=== PATIENT | male | born 1955 | race Hispanic/Latino ===

== ENCOUNTER 2017-08-10 20:32 | Emergency (ER) | payer SELFPAY ==
[2017-08-10 21:21] LABS: Absolute Lymphocytes (CBC) 2.3 K/uL (0.7-4.9); Absolute Monocytes 1.1 K/uL (0.1-1.3); Basophils % 0.9 % (0-1.3); Eosinophils % 11.9 % (0-4.4); Hematocrit 48.7 % (39.6-49.0); Lymphocytes % 17.7 % (15.3-44.8); MCH 33.1 pg (27.0-35.0); MCV 95.2 fL (80-100); MPV 7.8 fL (7.6-11.3); Monocytes % 8.2 % (3.3-12.3); RBC Red Blood Cell Count 5.12 M/uL (4.33-5.43)
--- NOTE | 2017-08-10 21:28 | RAD REPORT ---
EXAM DESCRIPTION: RAD - Chest Single View - 08/10/2017 9:22 pm CLINICAL HISTORY: CHEST PAIN Chest pain. COMPARISON: No comparisons FINDINGS: Portable technique limits examination quality. A large round cavitary lesion is identified in the left lower lung with a small to moderate left pleu ral effusion suspected. The right lung appears grossly clear. The heart is normal in size. No displac ed fractures. IMPRESSION: Large left lower lung cavitary lung lesion with left pleural effusion may represent a ca vitary pneumonia or cavitary neoplasm.
[2017-08-10 21:31] LABS: Protime INR 0.99
[2017-08-10 21:40] LABS: Albumin 3.2 g/dL (3.4-5.0); Bilirubin Direct 0.2 mg/dL (0-0.2); Bilirubin Total 0.7 mg/dL (0.2-1.0); Magnesium 2.2 mg/dL (1.8-2.4); Potassium 3.8 mmol/L (3.5-5.1); Protein, Total 7.3 g/dL (6.4-8.2)
--- NOTE | 2017-08-10 21:55 | RAD REPORT ---
EXAM DESCRIPTION: CT - Head Brain Wo Cont - 08/10/2017 9:42 pm CLINICAL HISTORY: Weakness;Seizure COMPARISON: Chest Single View dated 08/10/2017 TECHNIQUE: All CT scans are performed using dose optimization technique as appropriate and may inclu de automated exposure control or mA/KV adjustment according to patient size. FINDINGS: No intracranial hemorrhage, hydrocephalus or extra-axial fluid collection.The large area o f white matter edema is seen in the left frontal lobe. A vague intra-axial mass suspected in the left frontal lobe measuring 3.0 x 2.2 cm. 8 millimeters of [id number] subfalcine herniation is seen. A dditional vague area of white matter edema is seen in the right superior frontal lobe. The paranasal sinuses and mastoids are clear. The calvarium is intact. IMPRESSION: A large area of white matter edema is present in the left frontal lobe surrounding a jag pected intra-axial mass measuring 3.0 x 2.2 cm, with 8 mm subfalcine herniation towards the right see n. Additional vague area of white matter edema is seen in the right frontal lobe. Given the recent p chantal radiograph findings in the chest, metastatic disease to the brain is a possibility. MR imaging o f the brain with contrast would be advised for further evaluation. Findings were discussed with Dr. Grey in the emergency room 9:50 p.m. 08/10/2017 by telephone.
--- NOTE | 2017-08-10 23:00 | ER ---
Nurse's Notes [facility] Name: Bharat Chavez Age: 61 yrs Sex: Male : 1955 Arrival Date: 08/10/2017 Time: 20:38 Bed 6 Private MD: Diagnosis: Intracerebral Mass;Pulmonary Cavitary mass Presentation: 08/10 20:32 Presenting complaint: EMS states: Family reported pt had 2 episodes of him shaking ea uncontrollably, with eyes rolling to the side. EMS states family was concerned it was a seizure. Family reported he is non compliant with medication. Transition of care: patient was not received from another setting of care. Onset of symptoms was August 10, 2017. Risk Assessment: Do you want to hurt yourself or someone else? Patient reports no desire to harm self or others. Initial Sepsis Screen: Does the patient meet any 2 criteria? No. Patient's initial sepsis screen is negative. Does the patient have a suspected source of infection? No. Patient's initial sepsis screen is negative. Care prior to arrival: BS 147, BP: 166/122. 20:32 Method Of Arrival: EMS: [facility] ea 20:32 Acuity: ELIZABET 3 ea Triage Assessment: 20:32 General: Appears in no apparent distress. Behavior is calm, cooperative, appropriate ea for age, Pt reports he started shaking on his right side and remembers it starts with pain to the top of his head. . Pain: Denies pain. Neuro: Level of Consciousness is awake, alert, obeys commands, Oriented to person, place, time, situation, Speech is normal, Facial symmetry appears normal, Pupils are PERRLA, Intact. Neuro: Gait is steady. Cardiovascular: Heart tones S1 S2 present Patient's skin is warm and dry. Respiratory: Airway is patent Respiratory effort is even, unlabored, Respiratory pattern is regular, symmetrical, Breath sounds are clear bilaterally. GI: Abdomen is non-distended, Bowel sounds present X 4 quads. Abd is soft and non tender X 4 quads. : No signs and/or symptoms were reported regarding the genitourinary system. Derm: No signs and/or symptoms reported regarding the dermatologic system. Skin is dry, Skin is normal, Skin temperature is warm. Musculoskeletal: Circulation, motion, and sensation intact. Historical: - Allergies: 20:45 No Known Allergies; ea - Home Meds: 20:45 reports he has them but does not take them [Active]; ea - PMHx: 20:45 Hypertension; ea - PSHx: 20:45 Right hand surgery; ea - Immunization history:: Adult Immunizations up to date. - Social history:: Smoking status: . - Ebola Screening: : No symptoms or risks identified at this time. Screenin:52 Abuse screen: Denies threats or abuse. Nutritional screening: No deficits noted. ea Tuberculosis screening: No symptoms or risk factors identified. Fall Risk None identified. Assessment: 23:03 Reassessment: Patient and/or family updated on plan of care and expected duration. Pain ea level reassessed. Patient is alert, oriented x 3, equal unlabored respirations, skin warm/dry/pink. Family remains on bedside. 08/11 00:11 Reassessment: Report called to [facility] at [facility] Neurology unit. ea 00:55 Reassessment: Patient and/or family updated on plan of care and expected duration. Pain ea level reassessed. Patient is alert, oriented x 3, equal unlabored respirations, skin warm/dry/pink. [facility] at facility for transfer. Vital Signs: 08/10 20:32 BP 132 / 110; Pulse 83; Resp 18 S; Temp 98(O); Pulse Ox 98% on R/A; Weight 68.04 kg; ea Height 5 ft. 1 in. (154.94 cm); Pain 0/10; 21:15 BP 154 / 97; Pulse 95; Resp 20; Pulse Ox 97% ; rv 23:14 BP 154 / 97; Pulse 87; Resp 18; Pulse Ox 96% ; Pain 0/10; ea 20:32 Body Mass Index 28.34 (68.04 kg, 154.94 cm) ea ED Course: 20:32 Patient has correct armband on for positive identification. Placed in gown. Bed in low ea position. Call light in reach. Side rails up X2. 20:32 Patient placed in an exam room, on a stretcher, on nurse monitoring, on pulse oximetry. ea 20:38 Patient arrived in ED. ds1 20:39 Mel Kumari, RN is Primary Nurse. ea 20:40 Inserted saline lock: 18 gauge in right antecubital area, using aseptic technique. ea Blood collected. 20:43 Triage completed. ea 20:48 Roszak, Viktor, PA is PHCP. jr8 20:48 Charly Grey MD is Attending Physician. jr8 21:20 X-ray completed. Portable x-ray completed in exam room. Patient tolerated procedure kc2 well. 21:21 XRAY Chest (1 view) In Process Unspecified. EDMS 21:42 CT Head Brain wo Cont In Process Unspecified. EDMS 23:15 No provider procedures requiring assistance completed. Patient transferred, IV remains ea in place. Administered Medications: 23:09 Drug: Decadron - Dexamethasone 10 mg Route: IVP; Site: right antecubital; rv 08/11 00:04 Follow up: Response: No adverse reaction ea 08/10 23:25 Drug: Ativan 2 mg Route: IVP; Site: right antecubital; rv 08/11 00:00 Follow up: Response: No adverse reaction; Marked relief of symptoms ea 08/10 23:52 Drug: Keppra 1000 mg Route: IV; Rate: 1 calculated rate; Site: right antecubital; ea 08/11 00:30 Follow up: IV Status: Completed infusion rv Outcome: 08/10 22:59 ER care complete, transfer ordered by . jr8 08/11 00:55 Transferred by ground EMS to [facility], Transfer form completed. ea Condition: stable Instructed on the need for transfer. 01:17 Patient left the ED. rv Signatures: Dispatcher [employer] EDOK Shayna Carroll ds1 Viktor Guerrero PA PA jr8 Cathie Ernst kc2 Mel Kumari RN RN ea Vicente, Ronaldo, RN RN rv Corrections: (The following items were deleted from the chart) 08/10 20:55 20:32 General: Appears in no apparent distress. Behavior is calm, cooperative, ea appropriate for age, ea
--- NOTE | 2017-08-10 23:00 | EDPHYS ---
Physician Documentation [facility] Name: Bharat Chavez Age: 61 yrs Sex: Male : 1955 Arrival Date: 08/10/2017 Time: 20:38 Bed 6 Private MD: ED Physician Charly Grey HPI: 08/10 22:33 This 61 yrs old Male presents to ER via EMS with complaints of weakness . jr8 22:33 The patient's problem is reported as an apparent seizure, weakness, in the right upper jr8 extremity. Onset: The symptoms/episode began/occurred gradually, 1 month(s) ago. Severity of symptoms: At their worst the symptoms were moderate in the emergency department the symptoms are unchanged. Patient's baseline: Neuro: alert and fully oriented, Motor: no deficits, Ambulation: walks without assistance, Speech: normal. The patient has not experienced similar symptoms in the past. The patient has not recently seen a physician. Patient stated that about 1 month ago had sharp pain to middle of head. Since then has right upper extremity shaking on/off followed by weakness of arm. Stated that this has happened multiple times over the course of the past month. Came today because it happened 4 times in the same day which has never happened before . Historical: - Allergies: 20:45 No Known Allergies; ea - Home Meds: 20:45 reports he has them but does not take them [Active]; ea - PMHx: 20:45 Hypertension; ea - PSHx: 20:45 Right hand surgery; ea - Immunization history:: Adult Immunizations up to date. - Social history:: Smoking status: . - Ebola Screening: : No symptoms or risks identified at this time. ROS: 22:33 Eyes: Negative for injury, pain, redness, and discharge, ENT: Negative for injury, jr8 pain, and discharge, Neck: Negative for injury, pain, and swelling, Cardiovascular: Negative for chest pain, palpitations, and edema, Respiratory: Negative for shortness of breath, cough, wheezing, and pleuritic chest pain, Abdomen/GI: Negative for abdominal pain, nausea, vomiting, diarrhea, and constipation, Back: Negative for injury and pain, MS/Extremity: Negative for injury and deformity, Skin: Negative for injury, rash, and discoloration. 22:33 Neuro: Positive for headache, seizure activity, weakness. Exam: 22:33 Radiologist reports: Large mass with edema present jr8 22:33 Head/Face: Normocephalic, atraumatic. Eyes: Pupils equal round and reactive to light, extra-ocular motions intact. Lids and lashes normal. Conjunctiva and sclera are non-icteric and not injected. Cornea within normal limits. Periorbital areas with no swelling, redness, or edema. ENT: Nares patent. No nasal discharge, no septal abnormalities noted. Tympanic membranes are normal and external auditory canals are clear. Oropharynx with no redness, swelling, or masses, exudates, or evidence of obstruction, uvula midline. Mucous membranes moist. Neck: Trachea midline, no thyromegaly or masses palpated, and no cervical lymphadenopathy. Supple, full range of motion without nuchal rigidity, or vertebral point tenderness. No Meningismus. Cardiovascular: Regular rate and rhythm with a normal S1 and S2. No gallops, murmurs, or rubs. Normal PMI, no JVD. No pulse deficits. Respiratory: Lungs have equal breath sounds bilaterally, clear to auscultation and percussion. No rales, rhonchi or wheezes noted. No increased work of breathing, no retractions or nasal flaring. Abdomen/GI: Soft, non-tender, with normal bowel sounds. No distension or tympany. No guarding or rebound. No evidence of tenderness throughout. Back: No spinal tenderness. No costovertebral tenderness. Full range of motion. Skin: Warm, dry with normal turgor. Normal color with no rashes, no lesions, and no evidence of cellulitis. MS/ Extremity: Pulses equal, no cyanosis. Neurovascular intact. Full, normal range of motion. Neuro: Awake and alert, GCS 15, oriented to person, place, time, and situation. Cranial nerves II-XII grossly intact. Motor strength 5/5 in all extremities. Sensory grossly intact. Cerebellar exam normal. Normal gait. Vital Signs: 20:32 BP 132 / 110; Pulse 83; Resp 18 S; Temp 98(O); Pulse Ox 98% on R/A; Weight 68.04 kg; ea Height 5 ft. 1 in. (154.94 cm); Pain 0/10; 21:15 BP 154 / 97; Pulse 95; Resp 20; Pulse Ox 97% ; rv 23:14 BP 154 / 97; Pulse 87; Resp 18; Pulse Ox 96% ; Pain 0/10; ea 20:32 Body Mass Index 28.34 (68.04 kg, 154.94 cm) ea MDM: 20:49 Patient medically screened. 22:40 Data reviewed: vital signs, nurses notes, lab test result(s), EKG, radiologic studies, CT scan, plain films. Data interpreted: Pulse oximetry: on room air is 97 %. Interpretation: normal. Counseling: I had a detailed discussion with the patient and/or guardian regarding: the historical points, exam findings, and any diagnostic results supporting the discharge/admit diagnosis, lab results, radiology results, the need to transfer to another facility, for higher level of care, [facility] does not immediately have the required specialist. ED course: Discussed in detail findings on images and that we need to transfer for higher level of care. Family and patient good with this . 22:57 ED course: Dr. Moran accepted patient for neuro ICU at [facility]. 08/10 21:02 Order name: Basic Metabolic Panel; Complete Time: :08/10 21:02 Order name: CBC with Diff; Complete Time: :08/10 21:02 Order name: LFT's; Complete Time: :08/10 21:02 Order name: Magnesium; Complete Time: :08/10 21:02 Order name: PT-INR; Complete Time: :08/10 21:02 Order name: XRAY Chest (1 view); Complete Time: :08/10 21:02 Order name: EKG; Complete Time: 21:08/10 21:02 Order name: Cardiac monitoring; Complete Time: :08/10 21:02 Order name: EKG - Nurse/Tech; Complete Time: :08/10 21:02 Order name: IV Saline Lock; Complete Time: :08/10 21:02 Order name: CT Head Brain wo Cont; Complete Time: 22:08/10 21:02 Order name: Labs collected and sent; Complete Time: :08/10 21:02 Order name: O2 Per Protocol; Complete Time: :8 08/10 21:02 Order name: O2 Sat Monitoring; Complete Time: 21: jr8 Administered Medications: 23:09 Drug: Decadron - Dexamethasone 10 mg Route: IVP; Site: right antecubital; rv 08/11 00:04 Follow up: Response: No adverse reaction ea 08/10 23:25 Drug: Ativan 2 mg Route: IVP; Site: right antecubital; rv 08/11 00:00 Follow up: Response: No adverse reaction; Marked relief of symptoms ea 08/10 23:52 Drug: Keppra 1000 mg Route: IV; Rate: 1 calculated rate; Site: right antecubital; ea 08/11 00:30 Follow up: IV Status: Completed infusion rv Disposition: 08/10/17 22:[address] [facility]. Diagnosis are Intracerebral Mass, Pulmonary Cavitary mass . - Reason for transfer: Higher level of care. - Accepting physician is Dr. Moran. - Condition is Fair. - Problem is new. - Symptoms are unchanged. Addendum: 08/14/2017 10:18 Co-signature as Attending Physician, Charly Grey MD. g s Signatures: Dispatcher [employer] EDMS Viktor Guerrero PA PA jr8 Mel Kumari RN RN Charly Vyas MD MD gs Vicente, Ronaldo, RN RN rv Corrections: (The following items were deleted from the chart) 08/11 01:17 08/10 22:59 08/10/2017 22:[address] [facility]. rv Diagnosis is Intracerebral Mass; Pulmonary Cavitary mass . Reason for transfer: Higher level of care. Accepting physician is Dr. Moran. Condition is Fair. Problem is new. Symptoms are unchanged. jr8
[2017-08-10] MEDS ORDERED: DEXAMETHASONE 10 MG/ML VIAL ONE (23:04)
[2017-08-10] MEDS ORDERED: LORazepam 2 MG/ML VIAL ONE (23:23)
[2017-08-10] MEDS ORDERED: LEVETIRACETAM 500 MG/5 ML VIAL IV ONE (23:45)
[2017-08-10] MEDS ORDERED: NA CHLORIDE 0.9% 100 ML IV ONE (23:48)
--- NOTE | 2017-08-13 07:00 | EKG ---
Test Date: 2017-08-10 Test Time: 21:09:29 English Language Learner Tutor: MARÍA ELENA MEASUREMENT RESULTS: Intervals: Rate: 80 RI: 138 QRSD: 76 QT: 362 QTc: 417 Calvin: P: 60 RI: 138 QRS: 64 T: 52 INTERPRETIVE STATEMENTS: Normal sinus rhythm with sinus arrhythmia Possible Left atrial enlargement Borderline ECG Compared to ECG 02/24/1999 20:58:00 Sinus bradycardia no longer present Electronically Signed On 08-13-17 06:59:54 CDT by Mika Luther
== END 2017-08-11 01:17 | disposition short-term general hospital (02) ==
LOC: ER 20:32
DX: G93.89 Other specified disorders of brain (principal); R91.8 Other nonspecific abnormal finding of lung field; I10 Essential (primary) hypertension
CPT/HCPCS: 36415; 70450; 71045; 80048; 80076; 83735; 85025; 85610; 93005; 96365; 96375; 99285; J1100; J1953

== ENCOUNTER 2018-01-22 03:01 | Inpatient (IN) | payer SELFPAY ==
--- OUTSIDE RECORDS SUMMARY | 2018-01-22 03:04 | XMS REPORT | Clinical Summary ---
:1955 Author Organization [facility] Address [address] [place] [address] Care Team Providers Name Role Phone Unavailable Primary Care Provider Unavailable Allergies No Known Allergies Medications Medication Sig Dispensed Refills Start End Date Status Date acetaminophen Take 2 tablets 30 tablet 0 08/12/19 Active (TYLENOL) 325 MG (650 mg total) by 8 19 tablet mouth every 6 (six) hours as needed for up to 360 days. potassium chloride Take 2 tablets (40 120 tablet 0 09/21/19 Active SA mEq total) by 8 19 (K-DUR,KLOR-CON) mouth daily. 20 MEQ tablet levETIRAcetam Take 1 tablet (750 60 tablet 0 08/17/19 Discontinued (KEPPRA) 750 MG mg total) by mouth 8 18 tablet 2 (two) times daily for 30 days. acetaminophen Take 2 tablets 30 tablet 0 08/17/19 Discontinued (TYLENOL) 325 MG (650 mg total) by 8 18 tablet mouth every 4 (four) hours as needed for up to 360 days. dexamethasone Take 1 tablet (2 50 tablet 0 08/17/19 Discontinued (DECADRON) 2 MG mg total) by mouth 8 18 tablet as directed for 10 days. dexamethasone Take 1 tablet (2 50 tablet 0 08/27/19 (DECADRON) 2 MG mg total) by mouth 8 18 tablet as directed for 10 days. levETIRAcetam Take 1 tablet (750 60 tablet 0 08/21/19 Discontinued (KEPPRA) 750 MG mg total) by mouth 8 18 tablet 2 (two) times daily for 30 days. levETIRAcetam Take 1 tablet (750 60 tablet 0 09/21/19 Discontinued (KEPPRA) 750 MG mg total) by mouth 8 18 tablet 2 (two) times daily for 30 days. dexamethasone Take 1 tablet (2 60 tablet 0 08/31/19 (DECADRON) 2 MG mg total) by mouth 8 18 tablet every 12 (twelve) hours for 10 days. dexamethasone Take 2 mg by mouth 0 09/21/19 Discontinued (DECADRON) 2 MG 2 (two) times 18 tablet daily with breakfast and dinner. levETIRAcetam Take 1 tablet (750 60 tablet 0 10/21/19 (KEPPRA) 750 MG mg total) by mouth 8 18 tablet 2 (two) times daily for 30 days. ampicillin-sulbact Inject 3 g 0 10/22/19 am (UNASYN) MBP 3 intravenously 8 18 g in 100 mL NS every 6 (six) hours for 31 days. Active Problems Problem Noted Date Encephalopathy 09/10/2017 Status epilepticus 09/10/2017 Intracranial mass 09/10/2017 Empyema 09/08/2017 Seizure 2017 Lung mass 2017 Brain mass 08/11/2017 Encounters Date Type Specialty Care Team Description 09/08/2017 Anesthesia Event Artur Estrada MD 09/08/2017 Surgery Torri, CRANIOTOMY MD Ron 09/08/2017 - Hospital Encounter General Internal Mitchell Lutz Brain mass; 09/20/2017 Medicine MD Solitario Empyema ([facility]); Janna, Seizure ([facility]); Re Woodward Acute encephalopathy; Subdural empyema; Dali Carolina Hyponatremia; MD Paulette Lung mass; Hypokalemia; Essential hypertension 08/15/2017 Anesthesia Event Sawyer Quezada MD 08/15/2017 Surgery Ralf House, CRANIOTOMY 08/11/2017 - Hospital Encounter General Internal Luisa, Brain mass; 08/20/2017 Medicine MD Joel Brain compression ([facility]); Ras, Cerebral edema ([facility]); MD Teofilo Lung mass; Seizure (HCC); Brain metastases (HCC) after 01/21/2017 Family History Medical History Relation Name Comments Stroke Father Stroke Paternal Grandfather Relation Name Status Comments Father Paternal Grandfather Social History Tobacco Use Types Packs/Day Years Used Date Former Smoker Cigarettes 1 56 1961 - 08/11/2017 Smokeless Tobacco: Never Used Tobacco Cessation: Counseling Given: Yes Alcohol Use Drinks/Week oz/Week Comments Yes 28 Cans of beer 16.8 used to drink more, cut back to 2-4 beers/day Sex Assigned at Date Recorded Not on file Job Start Date Occupation Industry Not on file Not on file Not on file Travel History Travel Start Travel End No recent travel history available. Last Filed Vital Signs Vital Sign Reading Time Taken Blood Pressure 129/76 09/20/2017 12:00 PM CDT Pulse 82 09/20/2017 12:00 PM CDT Temperature 36 C (96.8 F) 09/20/2017 7:32 AM CDT Respiratory Rate 20 09/20/2017 12:00 PM CDT Oxygen Saturation 95% 09/20/2017 12:00 PM CDT Inhaled Oxygen Concentration - - Weight 54.3 kg (119 lb 11.4 oz) 09/08/2017 2:15 AM CDT Height 152.4 cm (5') 09/08/2017 2:15 AM CDT Body Mass Index 23.38 09/08/2017 2:15 AM CDT Plan of Treatment Not on file Implants Implanted Type Area Inside Account Representative Device Shelf Model / Identifier Expiration Serial / Date Lot [facility] Full Strlprep 10ml [id number] - [id number] Cement/John ROBISON: BIOSCI 12/20/2018 [id number] / Implanted: Qty: 1 on 08/15/2017 by Ralf House MD ler/Adhesi / ve ([id number] [facility]seal [facility] Full Strlprep 10ml [id number] - [id number] Cement/John N/A: ROBISON: BIOSCI 01/31/2019 [id number] / Implanted: Qty: 1 on 09/08/2017 by Ron Wild MD ler/Adhesi Head / ve Cvr Bur Hole Lp 14mm W/Tab [id number] - [id number] Fracture/F EVERTON:EVERTON [id number] / Implanted: Qty: 4 on 08/15/2017 by Ralf House MD ixation LEIBINGER / Scr Un3 Maurepas Self Drl 1.5x4mm [id number] - [id number] Fracture/F Left: EVERTON :CRANIOMA [id number] / Implanted: Qty: 8 on 08/15/2017 by Ralf House MD ixation Head XILLOFACIAL / Cvr Bur Hole Lp 20mm W/Tab [id number] - [id number] Fracture/F N/A: EVERTON: EVERTON [id number] / Implanted: Qty: 1 on 09/08/2017 by Ron Wild MD ixation Head LEIBINGER / Cvr Bur Hole Lp 14mm W/Tab [id number] - [id number] Fracture/F N/A: EVERTON: EVERTON [id number] / Implanted: Qty: 3 on 09/08/2017 by Ron Wild MD ixation Head LEIBINGER / Plt Str Un3 2h W/Tab [id number] - [id number] Fracture/F N/A: EVERTON:CRANIOMA [id number] / Implanted: Qty: 2 on 09/08/2017 by Ron Wild MD ixation Head XILLOFACIAL / Plt Rect Un3 53-94900 - [id number] Fracture/F N/A: EVERTON:CRANIOMA 53- [id number] / Implanted: Qty: 1 on 09/08/2017 by Ron Wild MD ixation Head XILLOFACIAL / Scr Un3 Maurepas Self Drl 1.5x4mm [id number] - [id number] Fracture/F N/A: EVERTON: CRANIOMA [id number] / Implanted: Qty: 22 on 09/08/2017 by Ron Wild MD ixation Head XILLOFACIAL / Graft Matrix Dura 3x3 45952 - [id number] Tissue Left: MEDTRONIC 2019 [id number] / Implanted: Qty: 1 on 08/15/2017 by Ralf House MD Graft/Subs Head SURGICAL / titute NAVIGATION [id number] Procedures Procedure Name Priority Date/Time Associated Comments Diagnosis RHYTHM STRIP - SCAN 09/21/2017 12:00 PM CDT POCT-GLUCOSE METER Routine 09/20/2017 12:20 Results for this PM CDT procedure are in the results section. POCT-GLUCOSE METER Routine 09/20/2017 7:40 Results for this AM CDT procedure are in the results section. CBC W/PLT COUNT & AUTO Routine 09/20/2017 5:25 Results for this DIFFERENTIAL AM CDT procedure are in the results section. CBC W/PLT COUNT & AUTO Routine 09/20/2017 5:25 Results for this DIFFERENTIAL AM CDT procedure are in the results section. BASIC METABOLIC PANEL Routine 09/20/2017 5:25 Results for this (7) AM CDT procedure are in the results section. POCT-GLUCOSE METER Routine 09/19/2017 9:16 Results for this PM CDT procedure are in the results section. POCT-GLUCOSE METER Routine 09/19/2017 5:34 Results for this PM CDT procedure are in the results section. POCT-GLUCOSE METER Routine 09/19/2017 11:59 Results for this AM CDT procedure are in the results section. BLOOD CULTURE Routine 09/19/2017 9:42 Results for this AM CDT procedure are in the results section. BLOOD CULTURE Routine 09/19/2017 9:42 Results for this AM CDT procedure are in the results section. POCT-GLUCOSE METER Routine 09/19/2017 7:54 Results for this AM CDT procedure are in the results section. (CELLAVISION MANUAL Routine 09/19/2017 4:22 Results for this DIFF) AM CDT procedure are in the results section. CBC W/PLT COUNT & AUTO Routine 09/19/2017 4:22 Results for this DIFFERENTIAL AM CDT procedure are in the results section. CBC W/PLT COUNT & AUTO Routine 09/19/2017 4:22 Results for this DIFFERENTIAL AM CDT procedure are in the results section. BASIC METABOLIC PANEL Routine 09/19/2017 4:22 Results for this (7) AM CDT procedure are in the results section. POCT-GLUCOSE METER Routine 09/18/2017 9:04 Results for this PM CDT procedure are in the results section. POCT-GLUCOSE METER Routine 09/18/2017 5:05 Results for this PM CDT procedure are in the results section. POCT-GLUCOSE METER Routine 09/18/2017 12:02 Results for this PM CDT procedure are in the results section. POCT-GLUCOSE METER Routine 09/18/2017 7:49 Results for this AM CDT procedure are in the results section. CBC W/PLT COUNT & AUTO Routine 09/18/2017 5:31 Results for this DIFFERENTIAL AM CDT procedure are in the results section. CBC W/PLT COUNT & AUTO Routine 09/18/2017 5:31 Results for this DIFFERENTIAL AM CDT procedure are in the results section. BASIC METABOLIC PANEL Routine 09/18/2017 5:31 Results for this (7) AM CDT procedure are in the results section. POCT-GLUCOSE METER Routine 09/17/2017 9:22 Results for this PM CDT procedure are in the results section. POCT-GLUCOSE METER Routine 09/17/2017 5:14 Results for this PM CDT procedure are in the results section. POTASSIUM Routine 09/17/2017 4:19 Results for this PM CDT procedure are in the results section. POCT-GLUCOSE METER Routine 09/17/2017 11:18 Results for this AM CDT procedure are in the results section. POCT-GLUCOSE METER Routine 09/17/2017 7:52 Results for this AM CDT procedure are in the results section. (CELLAVISION MANUAL Routine 09/17/2017 5:12 Results for this DIFF) AM CDT procedure are in the results section. CBC W/PLT COUNT & AUTO Routine 09/17/2017 5:12 Results for this DIFFERENTIAL AM CDT procedure are in the results section. CBC W/PLT COUNT & AUTO Routine 09/17/2017 5:12 Results for this DIFFERENTIAL AM CDT procedure are in the results section. BASIC METABOLIC PANEL Routine 09/17/2017 5:12 Results for this (7) AM CDT procedure are in the results section. POCT-GLUCOSE METER Routine 09/16/2017 8:59 Results for this PM CDT procedure are in the results section. POCT-GLUCOSE METER Routine 09/16/2017 5:40 Results for this PM CDT procedure are in the results section. (CELLAVISION MANUAL Routine 09/16/2017 4:39 Results for this DIFF) AM CDT procedure are in the results section. CBC W/PLT COUNT & AUTO Routine 09/16/2017 4:39 Results for this DIFFERENTIAL AM CDT procedure are in the results section. BASIC METABOLIC PANEL Routine 09/16/2017 4:39 Results for this (7) AM CDT procedure are in the results section. CBC W/PLT COUNT & AUTO Routine 09/16/2017 4:39 Results for this DIFFERENTIAL AM CDT procedure are in the results section. POCT-GLUCOSE METER Routine 09/15/2017 9:09 Results for this PM CDT procedure are in the results section. POCT-GLUCOSE METER Routine 09/15/2017 5:31 Results for this PM CDT procedure are in the results section. POTASSIUM Routine 09/15/2017 5:09 Results for this PM CDT procedure are in the results section. POCT-GLUCOSE METER Routine 09/15/2017 11:52 Results for this AM CDT procedure are in the results section. POCT-GLUCOSE METER Routine 09/15/2017 8:22 Results for this AM CDT procedure are in the results section. (CELLAVISION MANUAL ROSALINE 09/15/2017 4:48 Results for this DIFF) AM CDT procedure are in the results section. CBC W/PLT COUNT & AUTO ROSALINE 09/15/2017 4:48 Results for this DIFFERENTIAL AM CDT procedure are in the results section. PHOSPHORUS Routine 09/15/2017 4:48 Results for this AM CDT procedure are in the results section. MAGNESIUM Routine 09/15/2017 4:48 Results for this AM CDT procedure are in the results section. CBC W/PLT COUNT & AUTO ROSALINE 09/15/2017 4:48 Results for this DIFFERENTIAL AM CDT procedure are in the results section. BASIC METABOLIC PANEL ROSALINE 09/15/2017 4:48 Results for this (7) AM CDT procedure are in the results section. POCT-GLUCOSE METER Routine 09/14/2017 8:47 Results for this PM CDT procedure are in the results section. POTASSIUM Routine 09/14/2017 8:43 Results for this PM CDT procedure are in the results section. POCT-GLUCOSE METER Routine 09/14/2017 4:51 Results for this PM CDT procedure are in the results section. POCT-GLUCOSE METER Routine 09/14/2017 11:50 Results for this AM CDT procedure are in the results section. POCT-GLUCOSE METER Routine 09/14/2017 7:45 Results for this AM CDT procedure are in the results section. ECG 12-LEAD Routine 09/14/2017 7:09 Results for this AM CDT procedure are in the results section. MAGNESIUM Routine 09/14/2017 6:46 Results for this AM CDT procedure are in the results section. (MANUAL DIFFERENTIAL) Routine 09/14/2017 4:58 Results for this AM CDT procedure are in the results section. CBC W/PLT COUNT & AUTO ROSALINE 09/14/2017 4:58 Results for this DIFFERENTIAL AM CDT procedure are in the results section. CBC W/PLT COUNT & AUTO ROSALINE 09/14/2017 4:58 Results for this DIFFERENTIAL AM CDT procedure are in the results section. BASIC METABOLIC PANEL ROSALINE 09/14/2017 4:58 Results for this (7) AM CDT procedure are in the results section. POCT-GLUCOSE METER Routine 09/13/2017 9:50 Results for this PM CDT procedure are in the results section. POCT-GLUCOSE METER Routine 09/13/2017 4:48 Results for this PM CDT procedure are in the results section. XR CHEST 1 VIEW STAT 09/13/2017 1:30 Results for this PORTABLE/BEDSIDE PM CDT procedure are in the results section. POCT-GLUCOSE METER Routine 09/13/2017 11:48 Results for this AM CDT procedure are in the results section. POCT-GLUCOSE METER Routine 09/13/2017 7:39 Results for this AM CDT procedure are in the results section. (CELLAVISION MANUAL ROSALINE 09/13/2017 4:43 Results for this DIFF) AM CDT procedure are in the results section. CBC W/PLT COUNT & AUTO ROSALINE 09/13/2017 4:43 Results for this DIFFERENTIAL AM CDT procedure are in the results section. HEPATIC FUNCTION PANEL Routine 09/13/2017 4:43 Results for this AM CDT procedure are in the results section. CBC W/PLT COUNT & AUTO ROSALINE 09/13/2017 4:43 Results for this DIFFERENTIAL AM CDT procedure are in the results section. BASIC METABOLIC PANEL ROSALINE 09/13/2017 4:43 Results for this (7) AM CDT procedure are in the results section. POCT-GLUCOSE METER Routine 09/12/2017 8:25 Results for this PM CDT procedure are in the results section. POCT-GLUCOSE METER Routine 09/12/2017 4:50 Results for this PM CDT procedure are in the results section. POCT-GLUCOSE METER Routine 09/12/2017 11:46 Results for this AM CDT procedure are in the results section. POCT-GLUCOSE METER Routine 09/12/2017 8:05 Results for this AM CDT procedure are in the results section. (CELLAVISION MANUAL ROSALINE 09/12/2017 5:15 Results for this DIFF) AM CDT procedure are in the results section. CBC W/PLT COUNT & AUTO ROSALINE 09/12/2017 5:15 Results for this DIFFERENTIAL AM CDT procedure are in the results section. CBC W/PLT COUNT & AUTO ROSALINE 09/12/2017 5:15 Results for this DIFFERENTIAL AM CDT procedure are in the results section. BASIC METABOLIC PANEL ORSALINE 09/12/2017 5:15 Results for this (7) AM CDT procedure are in the results section. POCT-GLUCOSE METER Routine 09/11/2017 9:06 Results for this PM CDT procedure are in the results section. POCT-GLUCOSE METER Routine 09/11/2017 5:09 Results for this PM CDT procedure are in the results section. POTASSIUM Routine 09/11/2017 2:16 Results for this PM CDT procedure are in the results section. POCT-GLUCOSE METER Routine 09/11/2017 8:47 Results for this AM CDT procedure are in the results section. (CELLAVISION MANUAL Routine 09/11/2017 3:18 Results for this DIFF) AM CDT procedure are in the results section. CBC W/PLT COUNT & AUTO Routine 09/11/2017 3:18 Results for this DIFFERENTIAL AM CDT procedure are in the results section. BASIC METABOLIC PANEL Routine 09/11/2017 3:18 Results for this (7) AM CDT procedure are in the results section. CBC W/PLT COUNT & AUTO Routine 09/11/2017 3:18 Results for this DIFFERENTIAL AM CDT procedure are in the results section. POCT-GLUCOSE METER Routine 09/10/2017 10:45 Results for this PM CDT procedure are in the results section. POTASSIUM Routine 09/10/2017 6:09 Results for this PM CDT procedure are in the results section. POCT-GLUCOSE METER Routine 09/10/2017 5:27 Results for this PM CDT procedure are in the results section. ECHOCARDIOGRAM REPORT 09/10/2017 12:50 - SCAN PM CDT POTASSIUM Routine 09/10/2017 12:04 Results for this PM CDT procedure are in the results section. SODIUM ROSALINE 09/10/2017 12:04 Results for this PM CDT procedure are in the results section. VANCOMYCIN LEVEL, Timed 09/10/2017 12:04 Results for this TROUGH PM CDT procedure are in the results section. POCT-GLUCOSE METER Routine 09/10/2017 10:27 Results for this AM CDT procedure are in the results section. 2D ECHO W/ DOPPLER Routine 09/10/2017 9:20 Results for this (CW/PW/COLOR) AM CDT procedure are in the results section. BLOOD CULTURE Routine 09/10/2017 3:57 Results for this AM CDT procedure are in the results section. CBC W/PLT COUNT & AUTO Routine 09/10/2017 3:49 Results for this DIFFERENTIAL AM CDT procedure are in the results section. BASIC METABOLIC PANEL Routine 09/10/2017 3:49 Results for this (7) AM CDT procedure are in the results section. CBC W/PLT COUNT & AUTO Routine 09/10/2017 3:49 Results for this DIFFERENTIAL AM CDT procedure are in the results section. BLOOD CULTURE Routine 09/10/2017 3:49 Results for this AM CDT procedure are in the results section. POCT-GLUCOSE METER Routine 09/09/2017 10:13 Results for this PM CDT procedure are in the results section. HEMOGLOBIN AND Routine 09/09/2017 9:32 Results for this HEMATOCRIT PM CDT procedure are in the results section. TRANSFUSION SERVICE 09/09/2017 5:51 REPORT - SCAN PM CDT POCT-GLUCOSE METER Routine 09/09/2017 5:15 Results for this PM CDT procedure are in the results section. SODIUM ROSALINE 09/09/2017 5:08 Results for this PM CDT procedure are in the results section. POCT-GLUCOSE METER Routine 09/09/2017 12:28 Results for this PM CDT procedure are in the results section. SPUTUM CULTURE + GRAM Routine 09/09/2017 11:00 Results for this STAIN AM CDT procedure are in the results section. POCT-GLUCOSE METER Routine 09/09/2017 9:15 Results for this AM CDT procedure are in the results section. HEMOGLOBIN AND STAT 09/09/2017 9:10 Results for this HEMATOCRIT AM CDT procedure are in the results section. XR CHEST 1 VIEW Routine 09/09/2017 7:55 Results for this PORTABLE/BEDSIDE AM CDT procedure are in the results section. CBC W/PLT COUNT & AUTO Routine 09/09/2017 4:27 Results for this DIFFERENTIAL AM CDT procedure are in the results section. BASIC METABOLIC PANEL Routine 09/09/2017 4:27 Results for this (7) AM CDT procedure are in the results section. CBC W/PLT COUNT & AUTO Routine 09/09/2017 4:27 Results for this DIFFERENTIAL AM CDT procedure are in the results section. POCT-GLUCOSE METER Routine 09/08/2017 6:15 Results for this PM CDT procedure are in the results section. POCT-GLUCOSE METER Routine 09/08/2017 2:13 Results for this PM CDT procedure are in the results section. FUNGUS CULTURE + Routine 09/08/2017 7:25 Results for this SMEAR AM CDT procedure are in the results section. SURGICALLY OBTAINED Routine 09/08/2017 7:24 Results for this CULTURE + GRAM STAIN AM CDT procedure are in the results section. ANAEROBIC CULTURE Routine 09/08/2017 7:23 Results for this AM CDT procedure are in the results section. FUNGUS CULTURE + Routine 09/08/2017 7:16 Results for this SMEAR AM CDT procedure are in the results section. SURGICALLY OBTAINED Routine 09/08/2017 7:15 Results for this CULTURE + GRAM STAIN AM CDT procedure are in the results section. ANAEROBIC CULTURE Routine 09/08/2017 7:14 Results for this AM CDT procedure are in the results section. CRANIOTOMY 09/08/2017 5:30 Abscess AM CDT TYPE AND SCREEN, Routine 09/08/2017 5:00 Results for this AUTOMATED AM CDT procedure are in the results section. C-REACTIVE PROTEIN STAT 09/08/2017 4:47 Results for this AM CDT procedure are in the results section. URINALYSIS W/ REFLEX Routine 09/08/2017 4:46 Results for this URINE CULTURE AM CDT procedure are in the results section. MR BRAIN WITHOUT & STAT 09/08/2017 4:29 Results for this WITH IV CONTRAST AM CDT procedure are in the results section. MISCELLANEOUS LAB Routine 09/08/2017 3:08 Results for this ORDER AM CDT procedure are in the results section. BLOOD CULTURE Routine 09/08/2017 2:59 Results for this AM CDT procedure are in the results section. BASIC METABOLIC PANEL Routine 09/08/2017 2:48 Results for this (7) AM CDT procedure are in the results section. PHOSPHORUS Routine 09/08/2017 2:48 Results for this AM CDT procedure are in the results section. MAGNESIUM Routine 09/08/2017 2:48 Results for this AM CDT procedure are in the results section. BLOOD CULTURE Routine 09/08/2017 2:37 Results for this AM CDT procedure are in the results section. (CELLAVISION MANUAL Routine 09/08/2017 2:36 Results for this DIFF) AM CDT procedure are in the results section. CBC W/PLT COUNT & AUTO Routine 09/08/2017 2:36 Results for this DIFFERENTIAL AM CDT procedure are in the results section. APTT Routine 09/08/2017 2:36 Results for this AM CDT procedure are in the results section. PROTHROMBIN TIME/INR Routine 09/08/2017 2:36 Results for this AM CDT procedure are in the results section. CBC W/PLT COUNT & AUTO Routine 09/08/2017 2:36 Results for this DIFFERENTIAL AM CDT procedure are in the results section. WOUND CULTURE + GRAM Routine 09/08/2017 2:35 Results for this STAIN AM CDT procedure are in the results section. REPORT OF PROCEDURE - 08/23/2017 10:20 ENDOSCOPY SCAN AM CDT RHYTHM STRIP - SCAN 08/23/2017 10:20 AM CDT POCT-GLUCOSE METER Routine 08/20/2017 4:37 Results for this PM CDT procedure are in the results section. POCT-GLUCOSE METER Routine 08/20/2017 11:48 Results for this AM CDT procedure are in the results section. POCT-GLUCOSE METER Routine 08/20/2017 7:54 Results for this AM CDT procedure are in the results section. (CELLAVISION MANUAL Routine 08/20/2017 4:47 Results for this DIFF) AM CDT procedure are in the results section. CBC W/PLT COUNT & AUTO Routine 08/20/2017 4:47 Results for this DIFFERENTIAL AM CDT procedure are in the results section. CBC W/PLT COUNT & AUTO Routine 08/20/2017 4:47 Results for this DIFFERENTIAL AM CDT procedure are in the results section. BASIC METABOLIC PANEL Routine 08/20/2017 4:47 Results for this (7) AM CDT procedure are in the results section. POCT-GLUCOSE METER Routine 08/19/2017 9:08 Results for this PM CDT procedure are in the results section. POCT-GLUCOSE METER Routine 08/19/2017 5:04 Results for this PM CDT procedure are in the results section. POCT-GLUCOSE METER Routine 08/19/2017 11:22 Results for this AM CDT procedure are in the results section. POCT-GLUCOSE METER Routine 08/19/2017 8:21 Results for this AM CDT procedure are in the results section. CBC W/PLT COUNT & AUTO Routine 08/19/2017 3:51 Results for this DIFFERENTIAL AM CDT procedure are in the results section. PHOSPHORUS Routine 08/19/2017 3:51 Results for this AM CDT procedure are in the results section. CALCIUM, IONIZED Routine 08/19/2017 3:51 Results for this AM CDT procedure are in the results section. CBC W/PLT COUNT & AUTO Routine 08/19/2017 3:51 Results for this DIFFERENTIAL AM CDT procedure are in the results section. BASIC METABOLIC PANEL Routine 08/19/2017 3:51 Results for this (7) AM CDT procedure are in the results section. POCT-GLUCOSE METER Routine 08/18/2017 9:11 Results for this PM CDT procedure are in the results section. POCT-GLUCOSE METER Routine 08/18/2017 5:30 Results for this PM CDT procedure are in the results section. POCT-GLUCOSE METER Routine 08/18/2017 11:33 Results for this AM CDT procedure are in the results section. POCT-GLUCOSE METER Routine 08/18/2017 7:40 Results for this AM CDT procedure are in the results section. CBC W/PLT COUNT & AUTO Routine 08/18/2017 4:36 Results for this DIFFERENTIAL AM CDT procedure are in the results section. CBC W/PLT COUNT & AUTO Routine 08/18/2017 4:36 Results for this DIFFERENTIAL AM CDT procedure are in the results section. BASIC METABOLIC PANEL Routine 08/18/2017 4:36 Results for this (7) AM CDT procedure are in the results section. POCT-GLUCOSE METER Routine 08/17/2017 5:03 Results for this PM CDT procedure are in the results section. POCT-GLUCOSE METER Routine 08/17/2017 12:20 Results for this PM CDT procedure are in the results section. POCT-GLUCOSE METER Routine 08/17/2017 8:02 Results for this AM CDT procedure are in the results section. (CELLAVISION MANUAL Routine 08/17/2017 4:28 Results for this DIFF) AM CDT procedure are in the results section. CBC W/PLT COUNT & AUTO Routine 08/17/2017 4:28 Results for this DIFFERENTIAL AM CDT procedure are in the results section. CBC W/PLT COUNT & AUTO Routine 08/17/2017 4:28 Results for this DIFFERENTIAL AM CDT procedure are in the results section. BASIC METABOLIC PANEL Routine 08/17/2017 4:28 Results for this (7) AM CDT procedure are in the results section. POCT-GLUCOSE METER Routine 08/16/2017 10:40 Results for this PM CDT procedure are in the results section. TRANSFUSION SERVICE 08/16/2017 6:02 REPORT - SCAN PM CDT POCT-GLUCOSE METER Routine 08/16/2017 5:30 Results for this PM CDT procedure are in the results section. POCT-GLUCOSE METER Routine 08/16/2017 11:16 Results for this AM CDT procedure are in the results section. MR BRAIN WITHOUT & ROSALINE 08/16/2017 10:05 Results for this WITH IV CONTRAST AM CDT procedure are in the results section. POCT-GLUCOSE METER Routine 08/16/2017 8:11 Results for this AM CDT procedure are in the results section. (CELLAVISION MANUAL Routine 08/16/2017 4:16 Results for this DIFF) AM CDT procedure are in the results section. CBC W/PLT COUNT & AUTO Routine 08/16/2017 4:16 Results for this DIFFERENTIAL AM CDT procedure are in the results section. HEMOGLOBIN A1C Routine 08/16/2017 4:16 Results for this AM CDT procedure are in the results section. CBC W/PLT COUNT & AUTO Routine 08/16/2017 4:16 Results for this DIFFERENTIAL AM CDT procedure are in the results section. POCT-GLUCOSE METER Routine 08/15/2017 10:50 Results for this PM CDT procedure are in the results section. POCT-GLUCOSE METER Routine 08/15/2017 5:12 Results for this PM CDT procedure are in the results section. HGB/HCT (H&H) - STAT STAT 08/15/2017 10:39 Results for this LAB AM CDT procedure are in the results section. GLUCOSE-STAT LAB STAT 08/15/2017 10:39 Results for this AM CDT procedure are in the results section. POTASSIUM-STAT LAB STAT 08/15/2017 10:39 Results for this AM CDT procedure are in the results section. SODIUM NA-STAT LAB STAT 08/15/2017 10:39 Results for this AM CDT procedure are in the results section. BLOOD GAS, ARTERIAL STAT 08/15/2017 10:39 Results for this AM CDT procedure are in the results section. CALCIUM, IONIZED STAT 08/15/2017 10:39 Results for this AM CDT procedure are in the results section. RRL CRITICAL LABS STAT 08/15/2017 10:39 Results for this (ABG,NA,K,H&H,GLUCOSE) AM CDT procedure are in the results section. TISSUE EXAM AP Routine 08/15/2017 10:16 Results for this AM CDT procedure are in the results section. HGB/HCT (H&H) - STAT STAT 08/15/2017 8:56 Results for this LAB AM CDT procedure are in the results section. GLUCOSE-STAT LAB STAT 08/15/2017 8:56 Results for this AM CDT procedure are in the results section. POTASSIUM-STAT LAB STAT 08/15/2017 8:56 Results for this AM CDT procedure are in the results section. SODIUM NA-STAT LAB STAT 08/15/2017 8:56 Results for this AM CDT procedure are in the results section. BLOOD GAS, ARTERIAL STAT 08/15/2017 8:56 Results for this AM CDT procedure are in the results section. CALCIUM, IONIZED STAT 08/15/2017 8:56 Results for this AM CDT procedure are in the results section. RRL CRITICAL LABS STAT 08/15/2017 8:56 Results for this (ABG,NA,K,H&H,GLUCOSE) AM CDT procedure are in the results section. CRANIOTOMY 08/15/2017 7:45 Brain tumor (HCC) AM CDT Special Needs (STEALTH, MICROSCOPE, ULTRASOUND,DUTTA) POCT-GLUCOSE METER Routine 08/15/2017 5:17 AM CDT CBC W/PLT COUNT & AUTO Routine 08/15/2017 3:31 AM CDT Results for this DIFFERENTIAL procedure are in the results section. TYPE AND SCREEN, AUTOMATED Routine 08/15/2017 3:31 AM CDT CBC W/PLT COUNT & AUTO Routine 08/15/2017 3:31 AM CDT Results for this DIFFERENTIAL procedure are in the results section. BASIC METABOLIC PANEL (7) Routine 08/15/2017 3:31 AM CDT POCT-GLUCOSE METER Routine 08/14/2017 10:[address] BRAIN WITH/WITHOUT IV STAT 08/14/2017 9:59 PM CDT Results for this CONTRAST procedure are in the results section. POCT-GLUCOSE METER Routine 08/14/2017 11:21 AM CDT POCT-GLUCOSE METER Routine 08/14/2017 7:53 AM CDT CBC W/PLT COUNT & AUTO Routine 08/14/2017 5:15 AM CDT Results for this DIFFERENTIAL procedure are in the results section. CBC W/PLT COUNT & AUTO Routine 08/14/2017 5:15 AM CDT Results for this DIFFERENTIAL procedure are in the results section. BASIC METABOLIC PANEL (7) Routine 08/14/2017 5:15 AM CDT POCT-GLUCOSE METER Routine 08/13/2017 10:58 PM CDT POCT-GLUCOSE METER Routine 08/13/2017 5:13 PM CDT POCT-GLUCOSE METER Routine 08/13/2017 12:04 PM CDT EEG AWAKE AND DROWSY Routine 08/13/2017 10:10 AM CDT POCT-GLUCOSE METER Routine 08/13/2017 8:15 AM CDT POCT-GLUCOSE METER Routine 08/13/2017 6:15 AM CDT CBC W/PLT COUNT & AUTO Routine 08/13/2017 4:05 AM CDT Results for this DIFFERENTIAL procedure are in the results section. CBC W/PLT COUNT & AUTO Routine 08/13/2017 4:05 AM CDT Results for this DIFFERENTIAL procedure are in the results section. BASIC METABOLIC PANEL (7) Routine 08/13/2017 4:05 AM CDT POCT-GLUCOSE METER Routine 08/13/2017 12:32 AM CDT POCT-GLUCOSE METER Routine 2017 10:27 PM CDT POCT-GLUCOSE METER Routine 2017 6:03 PM CDT ECG 12-LEAD Routine 2017 12:08 PM CDT POCT-GLUCOSE METER Routine 2017 12:08 PM CDT BASIC METABOLIC PANEL (7) Routine 2017 5:32 AM CDT CBC W/PLT COUNT & AUTO Routine 2017 5:00 AM CDT Results for this DIFFERENTIAL procedure are in the results section. CBC W/PLT COUNT & AUTO Routine 2017 5:00 AM CDT Results for this DIFFERENTIAL procedure are in the results section. POCT-GLUCOSE METER Routine 08/11/2017 5:[address] CHEST WITH IV CONTRAST Routine 08/11/2017 2:05 PM CDT MR BRAIN WITHOUT & WITH IV Routine 08/11/2017 1:54 PM CDT Results for this CONTRAST procedure are in the results section. POCT-GLUCOSE METER Routine 08/11/2017 12:05 PM CDT HEPATIC FUNCTION PANEL Routine 08/11/2017 4:07 AM CDT PHOSPHORUS Routine 08/11/2017 4:07 AM CDT MAGNESIUM Routine 08/11/2017 4:07 AM CDT BASIC METABOLIC PANEL (7) Routine 08/11/2017 4:07 AM CDT CBC (HEMOGRAM ONLY) Routine 08/11/2017 3:30 AM CDT APTT Routine 08/11/2017 3:30 AM CDT PROTHROMBIN TIME/INR Routine 08/11/2017 3:30 AM CDT after 01/21/2017 Results RHYTHM STRIP - SCAN (09/21/2017 12:00 PM CDT)Only the most recent of2 resultswithin the time period is included. Narrative Performed At POC-Glucose meter (09/20/2017 12:20 PM CDT)Only the most recent of79 resultswithin the time period is included. POC-Glucose Meter 136 (H)Comment: TESTED AT 70 - 110 mg/dL [facility] [address] [facility] [id number] Specimen Blood Performing Organization Address City/State/Zipcode Phone Number [address] [address] CENTER CBC with platelet count + automated diff (09/20/2017 5:25 AM CDT)Only the most recent of22 resultswithin the time period is included. WBC 11.9 (H) 3.5 - 10.5 K/L [facility] RBC 2.60 (L) 4.63 - 6.08 M/L [facility] Hemoglobin 8.6 (L) 13.7 - 17.5 GM/DL [facility] Hematocrit 26.0 (L) 40.1 - 51.0 % [facility] MCV 100.0 (H) 79.0 - 92.2 fL [facility] MCH 33.1 (H) 25.7 - 32.2 pg [facility] MCHC 33.1 32.3 - 36.5 GM/DL [facility] RDW 15.7 (H) 11.6 - 14.4 % [facility] Platelets 545 (H) 150 - 450 K/CU MM [facility] MPV 8.6 (L) 9.4 - 12.4 fL [facility] nRBC 0 0 - 0 /100 WBC [facility] % Neutros 66 % [facility] % Lymphs 14 % [facility] % Monos 12 % [facility] % Eos 3 % [facility] % Baso 1 % [facility] # Neutros 7.84 (H) 1.78 - 5.38 K/L [facility] # Lymphs 1.71 1.32 - 3.57 K/L [facility] # Monos 1.41 (H) 0.30 - 0.82 K/L [facility] # Eos 0.37 0.04 - 0.54 K/L [facility] # Baso 0.07 0.01 - 0.08 K/L [facility] Immature 4 (H) 0 - 1 % [facility] Specimen Blood Performing Organization Address City/State/Zipcode Phone Number [facility] [address] [place] [address] [phone] CENTER Basic Metabolic Panel (09/20/2017 5:25 AM CDT)Only the most recent of22 resultswithin the time period is included. Sodium 146 (H) 136 - 145 meq/L [facility] Potassium 3.1 (L) 3.5 - 5.1 meq/L [facility] Chloride 109 (H) 98 - 107 meq/L [facility] CO2 21 (L) 22 - 29 meq/L [facility] BUN 4 (L) 7 - 21 mg/dL [facility] Creatinine 0.82 0.57 - 1.25 mg/dL [facility] Glucose 81 70 - 105 mg/dL [facility] Calcium 8.1 (L) 8.4 - 10.2 mg/dL [facility] EGFR 95Comment: ESTIMATED GFR IS mL/min/1.73 sq m [facility] NOT ACCURATE [facility] CLEARANCE IN PREDICTING GLOMERULAR FILTRATION RATE. ESTIMATED GFR IS NOT APPLICABLE FOR DIALYSIS PATIENTS. Specimen Blood Performing Organization Address City/State/Zipcode Phone Number [facility] [address] [place] [address] CENTER Blood culture (09/19/2017 9:42 AM CDT)Only the most recent of6 resultswithin the time period is included. Result No growth in 5 days [facility] Specimen Blood - Central Venous Line Performing Organization Address City/State/Zipcode Phone Number [facility] [address] [place] [address] [place] Manual Differential (09/19/2017 4:22 AM CDT)Only the most recent of11 resultswithin the time period is included. % Neutros 84 % [facility] % Lymphs 6 % [facility] % Monos 5 % [facility] % Eos 3 % [facility] % Metamyelo 1 (H) 0 - 0 % [facility] % Myelo 1 (H) 0 - 0 % [facility] # Neutros 11.26 (H) 1.78 - 5.38 K/ul [facility] # Lymphs 0.80 (L) 1.32 - 3.57 K/ul [facility] # Monos 0.67 0.30 - 0.82 K/uL [facility] # Eos 0.40 0.04 - 0.54 K/uL [facility] # Metamyelo 0.13 (H) 0.00 - 0.00 K/uL [facility] # Myelo 0.13 (H) 0.00 - 0.00 K/uL [facility] Total Counted 100 [facility] WBC Morphology Normal [facility] Large Platelet Present [facility] Polychromasia 1+ few [facility] Anisocytosis 1+ few [facility] Artifact Present [facility] Platelet Conc Increased [facility] Specimen Blood Narrative Performed At Received comment: [facility] User comments: Slide comments: Performing Organization Address City/[facility] Phone Number [address] [address] CENTER Potassium (09/17/2017 4:19 PM CDT)Only the most recent of6 resultswithin the time period is included. Potassium 4.0 3.5 - 5.1 meq/L [facility] Specimen Blood - Central Venous Line Performing Organization Address [facility] Phone Number [address] [address] [phone] CENTER Phosphorus (09/15/2017 4:48 AM CDT)Only the most recent of4 resultswithin the time period is included. Phosphorus 2.9 2.3 - 4.7 mg/dL [facility] Specimen Blood - Central Venous Line Performing Organization Address [facility] Phone Number [address] [address] [phone] CENTER Magnesium (09/15/2017 4:48 AM CDT)Only the most recent of4 resultswithin the time period is included. Magnesium 1.7 1.6 - 2.6 mg/dL [facility] Specimen Blood - Central Venous Line Performing Organization Address [facility] Phone Number [address] [address] [phone] CENTER ECG 12 lead (09/14/2017 7:09 AM CDT)Only the most recent of2 resultswithin the time period is included. Narrative Performed At Ventricular Rate 63 BPM GE MUSE Atrial Rate 63 BPM P-R Interval 138 ms QRS Duration 82 ms Q-T Interval 444 ms QTC Calculation(Bazett) 454 ms P Maurepas 46 degrees R Maurepas 54 degrees T [place] 48 degrees Normal sinus rhythm Normal ECG When compared with ECG of 12-AUG-2017 12:08, No significant change was found Confirmed by MD Menard Roberto ([id number]) on 09/14/2017 1:49:56 PM Procedure Note Interface, External Ris In - 09/14/2017 1:50 PM CDT Ventricular Rate 63 BPM Atrial Rate 63 BPM P-R Interval 138 ms QRS Duration 82 ms Q-T Interval 444 ms QTC Calculation(Bazett) 454 ms P Maurepas 46 degrees R [place]urepas 54 degrees T [place] 48 degrees Normal sinus rhythm Normal ECG When compared with ECG of 12-AUG-2017 12:08, No significant change was found Confirmed by MD Menard Roberto ([id number]) on 09/14/2017 1:49:56 PM Performing Organization Address City/[facility] Phone Number GE MUSE Manual Differential (09/14/2017 4:58 AM CDT) Total Counted [facility] WBC Morphology Normal [facility] Platelet Morphology Normal [facility] RBC Morphology Normal [facility] Specimen Blood Performing Organization Address City/[facility] Phone Number [facility] [address] [place] [address] CENTER XR chest 1 view portable / bedside (09/13/2017 1:30 PM CDT)Only the most recent of2 resultswithin the time period is included. Narrative Performed At FINAL REPORT GE RIS AP chest. HISTORY: PICC placement COMPARISON: 09/09/2017 IMPRESSION: Left arm PICC placed with tip at upper SVC. Stable cardiac silhouette. Left basilar airspace disease and pleural thickening or effusion unchanged. Right lung clear. No pneumothorax. Signed: Lisbeth Mcpherson MD Report Verified Date/Time:09/13/2017 13:54:15 Reading Location: [facility] Reading Room Procedure Note Interface, External Ris In - 09/13/2017 1:56 PM CDT FINAL REPORT AP chest. HISTORY: PICC placement COMPARISON: 09/09/2017 IMPRESSION: Left arm PICC placed with tip at upper SVC. Stable cardiac silhouette. Left basilar airspace disease and pleural thickening or effusion unchanged. Right lung clear. No pneumothorax. Signed: Lisbeth Mcpherson MD Report Verified Date/Time: 09/13/2017 13:54:15 Reading Location: [facility] Reading Room Performing Organization Address [facility] Phone Number [facility] Hepatic function panel (09/13/2017 4:43 AM CDT)Only the most recent of2 resultswithin the time period is included. Protein, Total 5.2 (L) 6.0 - 8.3 gm/dL [facility] Albumin 2.3 (L) 3.5 - 5.0 g/dL [facility] Total Bilirubin 0.5 0.2 - 1.2 mg/dL [facility] Bilirubin, Direct 0.4 0.1 - 0.5 mg/dL [facility] Alkaline Phosphatase 92 40 - 150 U/L [facility] AST 45 (H) 5 - 34 U/L [facility] ALT 49 6 - 55 U/L [facility] Specimen Blood Performing Organization Address [facility] Phone Number [facility] [address] [place] [address] CENTER ECHOCARDIOGRAM REPORT - SCAN (09/10/2017 12:50 PM CDT) Narrative Performed At Sodium (09/10/2017 12:04 PM CDT)Only the most recent of2 resultswithin the time period is included. Sodium 137 136 - 145 meq/L [facility] Specimen Blood Performing Organization Address [facility]/Zipcode Phone Number [facility] [address] [place] [address] CENTER Vancomycin level, trough (09/10/2017 12:04 PM CDT) Vancomycin Tr 5.2 (L) 10.0 - 20.0 ug/mL [facility] Specimen Blood Narrative Performed At Draw immediately prior to next vancomycin [facility] dose. Performing Organization Address City/[facility]/Zipcode Phone Number [facility] [address] [place] [address] CENTER 2D Echo W/Doppler(CW/PW/Color) (09/10/2017 9:20 AM CDT) Ejection Fraction [facility] Narrative Performed At Transthoracic Echocardiography Report (TTE) [facility] Demographics Patient Name Nirali YATES of Study09/10/2017 [id number] Gender Male Visit Number [id number] Race [id number] Number Date of Birth1955 Referring PhysicianMitchell Lutz Age62 year(s) SonographDaryl Almanza RDCS Interpreting [place]o Underwood, PhysicianMD Fellow [facility] Procedure Type of Study TTE procedure:2DECHO W DOPPLER(CW/PW/COLOR) (Routine) Indications:Suspected infective endocarditis with positive cultures or new murmur. Clinical History HGB 8.0 HCT 22.9 % HTN, FORMER SMOKER, HX METS LUNG CA, BRAIN CA METS Height: 60 inches Weight: 53.98 kg (119 lbs) BSA: 1.5 m^2 BMI: 23.24 kg/m^2 HR: 76 bpm BP: 125/72 mmHg Summary LV septal thickness is normal (0.6-1.1cm). LV posterior wall thickness is normal (0.6-1.1cm) . All of the LV segments contract normally . LVEF by Cherry's method of disk assessment is normal (55-60%) . Grade 1 diastolic dysfunction (impaired relaxation and low-normal LA pressure). Unable to estimate peak systolic PA pressure; inadequate TR velocity signal. No significant pericardial effusion is visualized. If clinical suspicion for IE persists, consider BIBIANA for further evaluation. Signature Findings Rhythm/BPRegular sinus rhythm during the exam. Left Ventricle The LV endocardium is partially visualized. LV septal thickness is normal (0.6-1.1cm). LV po sterior wall thickness is normal (0.6-1.1cm) . Al l of the LV segments contract normally . LV EF by Cherry's method of disk assessment is no rmal (55-60%) . Gr monty 1 diastolic dysfunction (impaired relaxation an d low-normal LA pressure). Left AtriumLA size is normal (16-34 ml/m2) . Right VentricleRV chamber size is normal . Gl obal RV systolic function is normal . Right Atrium RA size is normal. Atrial SeptumNormal interatrial septum by available views. Aortic Valve The aortic valve is not well visualized. Ao rtic valve structure and function appear normal by available views and doppler. No significant thickening or vegetations to suggest in fectious endocarditis. If clinical suspicion persists, recommend BIBIANA. Mitral Valve Normal MV structure and function by available vi ews. No thickening or vegetations. If clinical suspicion for IE persists, consider BIBIANA fo r further evaluation. No significant mitral regurgitation. Tricuspid ValveNormal TV structure and function by available vi ews. A trace of tricuspid regurgitation. Un able to estimate peak systolic PA pressure; in adequate TR velocity signal. Pulmonic Valve Normal PV structure and function by available vi ews. AortaAortic root size (SInus of Valsalva diameter) is no rmal . Th e aortic sinotubular junction appears normal . PericardiumNo significant pericardial effusion is visualized. IVC/SVC/PA/PV/PleuralThe inferior vena cava is adequately visualized. Th e estimated RA pressure by IVC dynamics 0-5mmHg . Chambers/Structures Left Atrium LA Volume: 17.64 ml LA Area: 11.24 cm^2 LA Vol. Index: 12 ml/m^2 Left Ventricle LVIDd: 4.04 cm LVEDV:59.46 ml LVIDs: 3.3 cm LV Septum Diastolic: 0.9 cm LV PW Diastolic: 0.99 cm LV FS: 18.3 % LVEDV Cherry's:55.5 ml LVESV Cherry's:25.15 ml LVEDVI: 37 ml/m^2 LVEF Cherry's: 54.7 % LVESVI: 17 ml/m^2 LVOT Diameter: 1.[address] Junction: 2.37 cm Ascending Aorta: 2.26 cm Doppler/Quantitative Measurements Mitral Valve MV Peak E-Wave: 1.11 m/sMV Peak A-Wave: 1.1 m/s P1/2t: 77.7 msecE/ A Ratio: 1.02 Mean Velocity: 0.57 m/s Peak Gradient: 4.96 mmHg Mean Gradient: 1.69 mmHgDeceleration Time: 267.9 msec MV Area (PHT): 2.83 cm^2Area (continuity): 2.42 cm^2 MV VTI: 24.68 cm MV Marek. Peak: 1.12 m/s Tissue Doppler E' Lateral Velocity: 0.09 m/s A' Lateral Velocity: 0.08 m/s E/E': 12.46 Aortic Valve Peak Velocity: 1.73 m/sMean Velocity: 1.05 m/s Peak Gradient: 11.95 mmHgMean Gradient: 5.21 mmHg AV Area (continuity): 2.25 cm^2 AV VTI: 26.6 cm AV DVI: 0.78 LVOT Peak Velocity: 1.42 m/s Peak Gradient: 8.07 mmHg Mean Velocity: 0.83 m/s Mean Gradient: 3.35 mmHg LVOT Diameter: 1.92 cmLVOT VTI: 20.64 cm LVOT Area: 2.9 cm^2 LVOT SV:59.73 ml LVOT CO: 4.54 l/min LVOT CI: 3.03 l/min/m^2 RVOT RVOT VTI (PW): 17.26 cm Tricuspid Valve TR Velocity: 1.51 m/s TR Gradient: 9.11 mmHg Pulmonic Valve Peak Velocity: 1.02 m/s Peak Gradient: 4.17 mmHg Mean Velocity: 0.8 m/sMean Gradient: 2.56 mmHg Procedure Note Interface, External Ris In - 09/10/2017 12:18 PM CDT Transthoracic Echocardiography Report (TTE) Demographics Patient Name JOHANA YATES Date of Study 09/10/2017 Gender Male Visit Number [id number] Race Room Number [id number] Number Date of 1955 Referring Physician Mitchell Lutz Age 62 year(s) Quality Checker Rickey Almanza [facility] Interpreting Physician ROBERT Hernandez Fellow Fei Yee Procedure Type of Study TTE procedure:2DECHO W DOPPLER(CW/PW/COLOR) (Routine) Indications:Suspected infective endocarditis with positive cultures or new murmur. Clinical History HGB 8.0 HCT 22.9 % HTN, FORMER SMOKER, HX METS LUNG CA, BRAIN CA METS Height: 60 inches Weight: 53.98 kg (119 lbs) BSA: 1.5 m^2 BMI: 23.24 kg/m^2 HR: 76 bpm BP: 125/72 mmHg Summary LV septal thickness is normal (0.6-1.1cm). LV posterior wall thickness is normal (0.6-1.1cm) . All of the LV segments contract normally . LVEF by Cherry's method of disk assessment is normal (55-60%) . Grade 1 diastolic dysfunction (impaired relaxation and low-normal LA pressure). Unable to estimate peak systolic PA pressure; inadequate TR velocity signal. No significant pericardial effusion is visualized. If clinical suspicion for IE persists, consider BIBIANA for further evaluation. Signature Findings Rhythm/BP Regular sinus rhythm during the exam. Left Ventricle The LV endocardium is partially visualized. LV septal thickness is normal (0.6-1.1cm). LV posterior wall thickness is normal (0.6-1.1cm) . All of the LV segments contract normally . LVEF by Cherry's method of disk assessment is normal (55-60%) . Grade 1 diastolic dysfunction (impaired relaxation and low-normal LA pressure). Left Atrium LA size is normal (16-34 ml/m2) . Right Ventricle RV chamber size is normal . Global RV systolic function is normal . Right Atrium RA size is normal. Atrial Septum Normal interatrial septum by available views. Aortic Valve The aortic valve is not well visualized. Aortic valve structure and function appear normal by available views and doppler. No significant thickening or vegetations to suggest infectious endocarditis. If clinical suspicion persists, recommend BIBIANA. Mitral Valve Normal MV structure and function by available views. No thickening or vegetations. If clinical suspicion for IE persists, consider BIBIANA for further evaluation. No significant mitral regurgitation. Tricuspid Valve Normal TV structure and function by available views. A trace of tricuspid regurgitation. Unable to estimate peak systolic PA pressure; inadequate TR velocity signal. Pulmonic Valve Normal PV structure and function by available views. Aorta Aortic root size (SInus of Valsalva diameter) is normal . The aortic sinotubular junction appears normal . Pericardium No significant pericardial effusion is visualized. IVC/SVC/PA/PV/Pleural The inferior vena cava is adequately visualized. The estimated RA pressure by IVC dynamics 0-5mmHg . Chambers/Structures Left Atrium LA Volume: 17.64 ml LA Area: 11.24 cm^2 LA Vol. Index: 12 ml/m^2 Left Ventricle LVIDd: 4.04 cm LVEDV:59.46 ml LVIDs: 3.3 cm LV Septum Diastolic: 0.9 cm LV PW Diastolic: 0.99 cm LV FS: 18.3 % LVEDV Cherry's:55.5 ml LVESV Cherry's:25.15 ml LVEDVI: 37 ml/m^2 LVEF Cherry's: 54.7 % LVESVI: 17 ml/m^2 LVOT Diameter: 1.[address] Junction: 2.37 cm Ascending Aorta: 2.26 cm Doppler/Quantitative Measurements Mitral Valve MV Peak E-Wave: 1.11 m/s MV Peak A-Wave: 1.1 m/s P1/2t: 77.7 msec E/A Ratio: 1.02 Mean Velocity: 0.57 m/s Peak Gradient: 4.96 mmHg Mean Gradient: 1.69 mmHg Deceleration Time: 267.9 msec MV Area (PHT): 2.83 cm^2 Area (continuity): 2.42 cm^2 MV VTI: 24.68 cm MV Marek. Peak: 1.12 m/s Tissue Doppler E' Lateral Velocity: 0.09 m/s A' Lateral Velocity: 0.08 m/s E/E': 12.46 Aortic Valve Peak Velocity: 1.73 m/s Mean Velocity: 1.05 m/s Peak Gradient: 11.95 mmHg Mean Gradient: 5.21 mmHg AV Area (continuity): 2.25 cm^2 AV VTI: 26.6 cm AV DVI: 0.78 LVOT Peak Velocity: 1.42 m/s Peak Gradient: 8.07 mmHg Mean Velocity: 0.83 m/s Mean Gradient: 3.35 mmHg LVOT Diameter: 1.92 cm LVOT VTI: 20.64 cm LVOT Area: 2.9 cm^2 LVOT SV:59.73 ml LVOT CO: 4.54 l/min LVOT CI: 3.03 l/min/m^2 RVOT RVOT VTI (PW): 17.26 cm Tricuspid Valve TR Velocity: 1.51 m/s TR Gradient: 9.11 mmHg Pulmonic Valve Peak Velocity: 1.02 m/s Peak Gradient: 4.17 mmHg Mean Velocity: 0.8 m/s Mean Gradient: 2.56 mmHg Performing Organization Address City/State/Zipcode Phone Number [facility] Hemoglobin and hematocrit (09/09/2017 9:32 PM CDT)Only the most recent of2 resultswithin the time period is included. Hemoglobin 8.2 (L) 13.7 - 17.5 GM/DL [facility] Hematocrit 24.0 (L) 40.1 - 51.0 % [facility] Specimen Blood Performing Organization Address [facility] Phone Number [address] [address] CENTER TRANSFUSION SERVICE REPORT - SCAN (09/09/2017 5:51 PM CDT)Only the most recent of2 resultswithin the time period is included. Narrative Performed At Sputum Culture + Gram Stain (09/09/2017 11:00 AM CDT) Result 2+ Normal respiratory alex [facility] Gram Stain Result 2+ WBCs [facility] Gram Stain Result 0-5 epithelial cells [facility] Gram Stain Result 1+ gram positive rods [facility] Gram Stain Result <1+ yeast [facility] Specimen Sputum - Expectorated Performing Organization Address [facility] Phone Number [address] [address] CENTER Fungus culture + smear (09/08/2017 7:25 AM CDT)Only the most recent of2 resultswithin the time period is included. Result No fungus isolated in 28 days [facility] Fungus Smear No fungi seen [facility] Specimen Abscess - Head Performing Organization Address [facility] Phone Number [address] [address] [place] Surgically obtained culture + gram stain (09/08/2017 7:24 AM CDT)Only the most recent of2 resultswithin the time period is included. Result 4+ Same organism has been isolated from cultures(s) of the same body site and collection date. Repeat identification and susceptibility testing performed only after consultation with the clinical microbiology laboratory. (A ) [facility] Comment: MEDICAL CENTER Refer to previous culture of Staphylococcus aureus Gram Stain Result 4+ WBCs [facility] Gram Stain Result 4+ gram positive cocci in [facility] clusters [facility] Specimen Abscess - Head Performing Organization Address [facility] Phone Number [address] [address] CENTER Anaerobic culture (09/08/2017 7:23 AM CDT)Only the most recent of2 resultswithin the time period is included. Result No anaerobes isolated [facility] Specimen Abscess - Head Performing Organization Address [facility]/Zipcode Phone Number [address] [address] CENTER Type and screen, automated (09/08/2017 5:00 AM CDT)Only the most recent of2 resultswithin the time period is included. ABO/RH AUTOMATED (BEAKER) B POSITIVE [facility] Ab Scrn NEGATIVE [facility] Specimen Blood Performing Organization Address [facility] Phone Number [address] [address] [phone] C-Reactive Protein (09/08/2017 4:47 AM CDT) CRP 25.73 (H) 0.00 - 0.50 mg/dL [facility] Specimen Blood Performing Organization Address [facility] Phone Number [address] [address] CENTER Urinalysis w/Microscopic + Reflex to Culture (09/08/2017 4:46 AM CDT) Color, UA Yellow [facility] Clarity, UA Clear [facility] Specific [place], UA 1.016 1.001 - 1.035 [facility] pH, UA 5.5 5.0 - 8.0 [facility] Protein, UA 20 mg/dL (A) Negative [facility] Glucose, UA Negative Negative [facility] Ketones, UA Negative Negative [facility] Bilirubin, UA Negative Negative [facility] Blood, UA Small (A) Negative [facility] Nitrite, UA Negative Negative [facility] Leukocytes, UA Negative Negative [facility] Urobilinogen, UA 4.0 (H) 0.2 - 1.0 mg/dL [facility] RBC, UA 20 /HPF [facility] WBC, UA 5 /HPF [facility] Bacteria, UA Rare [facility] Mucus Few [facility] Squam Epithel, UA 5 /HPF [facility] Specimen Source [facility] Specimen Urine - Urine, Clean Catch Performing Organization Address City/State/Zipcode Phone Number [facility] [address] [place] [address] CENTER MR brain without & with IV contrast (09/08/2017 4:29 AM CDT)Only the most recent of3 resultswithin the time period is included. Narrative Performed At FINAL REPORT U-NOTE Exam: MRI brain with and without contrast Comparison:Brain MRI 08/16/2017. Reason for exam: subdural empyema Discussion: Multiplanar MR imaging of the brain was provided [id number] IV gadolinium administration using T1, T2, FLAIR, FFE, diffusion weighted sequences, and ADC map imaging. The patient is status post left parietal craniotomy. There is a surgical cavity in the left frontoparietal lobe measuring 1.7 x 1.5 cm. There is mildly increased peripheral nodular enhancement suggesting worsening residual tumor. There is edema surrounding the surgical cavity, decreased in the interval. There is diffuse subarachnoid enhancement in the left high frontoparietal region, which may be reactive, infectious or metastatic in etiology. There is a 5 mm enhancing focus in the left frontal subcortical white matter, new in the interval and suspicious for metastases (image 21). There is a 10 x 9 mm enhancing metastatic lesion in the right precentral gyrus with surrounding edema, (previously measured 9 x 7 mm a comparable level on the prior exam). There is a left frontal convexity subdural collection measuring 12 mm in thickness with mild enhancement and restricted diffusion compatible with an empyema. There is mild associated parenchymal mass effect, with a hcvl-pj-tgody midline shift measuring 4 mm at the level of the septum pellucidum. There are mild white matter microvascular ischemic changes. 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 There is no restricted diffusion to suggest an acute infarct. There is a hemosiderin rim along the above described surgical cavity. There is no signal abnormality to suggest acute hemorrhage. There is no hydrocephalus. There is a small cavum septa pellucidum et vergae. Flow-voids are seen in the basilar and internal carotid arteries as well as in the large posterior dural sinuses. The pineal, sella, and craniocervical junction regions are within normal limits. There is a deformity of the right lamina papyracea which may be due to remote trauma. The orbits are otherwise unremarkable. There is mild paranasal sinus mucosal thickening. The mastoid air cells are clear. There is a left parietal subgaleal fluid collection adjacent to the craniotomy site measuring 6.8 x 1.6 x 1.3 cm. Impressions: Status post left parietal craniotomy. Mildly increased peripheral nodular enhancement along the surgical cavity, suspicious for worsening residual tumor.New 5 mm enhancing nodule in the left centrum semiovale suspicious for metastases. 10 x 9 mm right precentral gyrus metastatic lesion, mildly increased in the interval.Mild diffuse subarachnoid enhancement in the high left frontal lobe may be reactive, infectious or metastatic in etiology. Attention to follow up is recommended. Small left frontal subdural collection with mild enhancement and restricted diffusion compatible with an empyema. Associated parenchymal mass effect and qxsv-iu-glroy midline shift. 6.8 x 1.6 x 1.3 cm left parietal subgaleal fluid collection adjacent to the craniotomy site; infection cannot be entirely excluded. Signed: Reynaldo Richards MD Report Verified Date/Time:09/08/2017 05:24:35 Reading Location: [facility] C013Y CT Body Reading Room Procedure Note Interface, External Ris In - 09/08/2017 5:26 AM CDT FINAL REPORT Exam: MRI brain with and without contrast Comparison: Brain MRI 08/16/2017. Reason for exam: subdural empyema Discussion: Multiplanar MR imaging of the brain was provided [id number] IV gadolinium administration using T1, T2, FLAIR, FFE, diffusion weighted sequences, and ADC map imaging. The patient is status post left parietal craniotomy. There is a surgical cavity in the left frontoparietal lobe measuring 1.7 x 1.5 cm. There is mildly increased peripheral nodular enhancement suggesting worsening residual tumor. There is edema surrounding the surgical cavity, decreased in the interval. There is diffuse subarachnoid enhancement in the left high frontoparietal region, which may be reactive, infectious or metastatic in etiology. There is a 5 mm enhancing focus in the left frontal subcortical white matter, new in the interval and suspicious for metastases (image 21). There is a 10 x 9 mm enhancing metastatic lesion in the right precentral gyrus with surrounding edema, (previously measured 9 x 7 mm a comparable level on the prior exam). There is a left frontal convexity subdural collection measuring 12 mm in thickness with mild enhancement and restricted diffusion compatible with an empyema. There is mild associated parenchymal mass effect, with a okna-qa-atimz midline shift measuring 4 mm at the level of the septum pellucidum. There are mild white matter microvascular ischemic changes. 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 There is no restricted diffusion to suggest an acute infarct. There is a hemosiderin rim along the above described surgical cavity. There is no signal abnormality to suggest acute hemorrhage. There is no hydrocephalus. There is a small cavum septa pellucidum et vergae. Flow-voids are seen in the basilar and internal carotid arteries as well as in the large posterior dural sinuses. The pineal, sella, and craniocervical junction regions are within normal limits. There is a deformity of the right lamina papyracea which may be due to remote trauma. The orbits are otherwise unremarkable. There is mild paranasal sinus mucosal thickening. The mastoid air cells are clear. There is a left parietal subgaleal fluid collection adjacent to the craniotomy site measuring 6.8 x 1.6 x 1.3 cm. Impressions: Status post left parietal craniotomy. Mildly increased peripheral nodular enhancement along the surgical cavity, suspicious for worsening residual tumor. New 5 mm enhancing nodule in the left centrum semiovale suspicious for metastases. 10 x 9 mm right precentral gyrus metastatic lesion, mildly increased in the interval. Mild diffuse subarachnoid enhancement in the high left frontal lobe may be reactive, infectious or metastatic in etiology. Attention to follow up is recommended. Small left frontal subdural collection with mild enhancement and restricted diffusion compatible with an empyema. Associated parenchymal mass effect and rwmx-rs-ihctz midline shift. 6.8 x 1.6 x 1.3 cm left parietal subgaleal fluid collection adjacent to the craniotomy site; infection cannot be entirely excluded. Signed: Reynaldo Richards MD Report Verified Date/Time: 09/08/2017 05:24:35 Reading Location: [facility] C013Y CT Body Reading Room Performing Organization Address City/State/Zipcode Phone Number U-NOTE BCID PANEL (09/08/2017 3:08 AM CDT) Scan Result SEE SCANNED RESULTS [facility] Specimen Blood Narrative Performed At Performing Organization Address City/State/Zipcode Phone Number [facility] [address] [place], [place] aPTT (09/08/2017 2:36 AM CDT)Only the most recent of2 resultswithin the time period is included. PTT 40.3 (H) 22.5 - 36.0 seconds [facility] Specimen Blood Performing Organization Address City/State/Zipcode Phone Number [facility] MEDICAL [address] [place] [address] CENTER Prothrombin time/INR (09/08/2017 2:36 AM CDT)Only the most recent of2 resultswithin the time period is included. Protime 15.4 (H) 11.7 - 14.7 seconds [facility] INR 1.2 <=5.9 [facility] Specimen Blood Narrative Performed At [facility] RECOMMENDED COUMADIN/WARFARIN INR THERAPY RANGES STANDARD DOSE: 2.0 - 3.0 Includes: PROPHYLAXIS for venous thrombosis, systemic embolization; TREATMENT for venous thrombosis and/or pulmonary embolus. HIGH RISK: Target INR is 2.5-3.5 for patients with mechanical heart valves. Performing Organization Address City/[facility] Phone Number [address] [address] [phone] [place] Wound culture + gram stain (09/08/2017 2:35 AM CDT) Result 4+ Same organism has been isolated from culture(s) of the same body site and collection date. Repeat identification performed only after consultation with the clinical microbiology laboratory. (A) [facility] Comment: MEDICAL CENTER Refer to previous culture of Staphylococcus aureus Gram Stain Result 1+ WBCs [facility] Gram Stain Result 2+ gram positive cocci in pairs [facility] Gram Stain Result 2+ gram positive cocci in [facility] clusters [facility] CENTER Specimen Abscess - Head Performing Organization Address [facility] Phone Number [address] [address] [phone] [place] EKG-SCANNED (08/23/2017 10:20 AM CDT) Narrative Performed At Calcium, Ionized (08/19/2017 3:51 AM CDT)Only the most recent of3 resultswithin the time period is included. Calcium, Ion 1.01 (L) 1.12 - 1.27 mmol/L [facility] pH, Blood 7.49 [facility] Specimen Blood Performing Organization Address [facility] Phone Number [address] [address] [place] Hemoglobin A1c (08/16/2017 4:16 AM CDT) Hemoglobin A1C 6.0 4.3 - 6.1 % [facility] Specimen Blood Performing Organization Address [facility] Phone Number [address] [address] [phone] CENTER Potassium-Stat Lab (08/15/2017 10:39 AM CDT)Only the most recent of2 resultswithin the time period is included. Potassium 3.8 3.6 - 5.5 meq/L [facility] Specimen Blood, Arterial Performing Organization Address City/[facility] Phone Number [address] [address] CENTER Sodium Na-Stat Lab (08/15/2017 10:39 AM CDT)Only the most recent of2 resultswithin the time period is included. Sodium 134 (L) 135 - 148 meq/L [facility] Specimen Blood, Arterial Performing Organization Address [facility] Phone Number [address] [address] [phone] [place] Glucose-Stat Lab (08/15/2017 10:39 AM CDT)Only the most recent of2 resultswithin the time period is included. Glucose 123 (H) 70 - 110 mg/dL [facility] Specimen Blood, Arterial Performing Organization Address [facility] Phone Number [address] [address] CENTER HGB/HCT (H&H)-Stat Lab (08/15/2017 10:39 AM CDT)Only the most recent of2 resultswithin the time period is included. Hemoglobin 15.5 13.0 - 16.8 g/dL [facility] Hematocrit 46.0 40.0 - 50.0 % [facility] Specimen Blood, Arterial Performing Organization Address [facility] Phone Number [address] [address] [place] Blood gas, arterial (08/15/2017 10:39 AM CDT)Only the most recent of2 resultswithin the time period is included. pH, Arterial 7.43 7.35 - 7.45 [facility] pCO2, Arterial 41 35 - 45 mmHg [facility] pO2, Arterial 243 (H) 80 - 90 mmHg [facility] O2 Sat, Arterial 99.6 (H) 96.0 - 97.0 % [facility] HCO3, Arterial 27 21 - 29 mmol/L [facility] Base Excess, Arterial 2.0 -2.0 - 3.0 mmol/L [facility] Patient Temperature 36.4 C [facility] FIO2 94.0 % [facility] Specimen Blood, Arterial Performing Organization Address City/State/Zipcode Phone Number [facility] [address] [place] [address] [phone] CENTER Tissue Exam (08/15/2017 10:16 AM CDT) Case Report Surgical Pathology Report Case: [id number] [facility] Authorizing Provider:Ralf House MDCollected: 08/15/2017 1016 [facility] Ordering Location: [facility] PERIOPERATIVE Received: 08/15/2017 1023 SERVICES Pathologist: Jericho Villanueva MD Specimens: A) - Brain, Left, LEFT FRONTAL MASS B) - Brain, Left, LEFT FRONTAL BRAIN MASS DIAGNOSIS A. BRAIN, LEFT FRONTAL, CRANIOTOMY: [facility] METASTATIC POORLY DIFFERENTIATED CARCINOMA (SEE COMMENT) [facility] B BRAIN, LEFT FRONTAL, CRANIOTOMY: METASTATIC POORLY DIFFERENTIATED CARCINOMA (SEE COMMENT) Signing Pathologist Direct Phone Line: [phone] COMMENT The tumor is poorly [facility] differentiated, highly [facility] anaplastic, attached to dura, and has some mucin production, as confirmed with mucicarmine stains. This confirms adenomatous differentiation. Additionally, some keratin production is focally suggested with immunopositivity of many tumor cells for CK 5/6, consistent with squamous differentiation. Tumor cells are also diffusely positive for cytokeratin 7 and Napsin A in tumor cell cytoplasm. TTF-1 stains tumor cells diffusely and strongly positive within their nuclei. Immunoperoxidase stains for cytokeratin 20 and p63 are negative in tumor. 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 A small cell component is not present. Additionally, the immunoprofile is most consistent with a lung primary. CPT Code(s) [address] [facility] ; [address]; [address]; [address]; [facility] [address] 5 SPECIMEN SOURCE A, brain left frontal mass; [facility] B. Brain tumor left frontal [facility] mass GROSS DESCRIPTION The specimen is received in two parts labeled with the patient's information which corresponds to requisition slips with the same name and number. [facility] Part A: .Received fresh for intraoperative consultation labeled "left frontal mass" are two cassidy-pink irregular pieces of soft tissue measuring 0.7 x 0.4 x 0.3 and 0.6 x 0.3 x 0.3 cm. The specimen is submitted entirely in cassettes FSA1 and A2. Part B: Received in formalin labeled "left frontal brain mass" is a 2.5 x 2.2 x 1.5 cm cassidy-pink to cassidy-yellow irregular soft tissue mass attached to 3.8 x 3.2 x 0.2 cm membranous brain tissue. The speci men is inked and serially sectioned and submitted entirely in cassettes B1 through B6. MA/pl INTRAOPERATIVE BRAIN, FRONTAL, LEFT, CRANIOTOMY: [facility] CONSULTATION - TOUCH PREP: METASTATIC CARCINOMA [facility] SECTION 1: METASTATIC POORLY DIFFERENTIATED CARCINOMA Reported by Dr. Moy. MICROSCOPIC DESCRIPTION Performed on A and B [facility] Specimen Tissue - Brain, Left Performing Organization Address City/State/Zipcode Phone Number [facility] [address] [place] [address] brain without & with IV contrast (08/14/2017 9:59 PM CDT) Narrative Performed At FINAL REPORT U-NOTE EXAM: CT head with and without contrast. CLINICAL HISTORY: Neoplasm: head, [employer]ITY [employer]ST, suspected For OR planning - STEALTH protocol 1mm cuts, zero gantry COMPARISON: Brain MRI 08/11/2017.. TECHNIQUE: CT images of the head were obtained with and without intravenous contrast.This exam was performed according to our departmental dose optimization program which includes automated exposure control, adjustment of the mA and/or kV according to patient's size and/or use of iterative reconstructive technique. FINDINGS: There is mild generalized parenchymal atrophy. There is diffuse vasogenic edema in the left frontoparietotemporal lobe with 3 x 2.8 cm enhancing lesion in the left frontal lobe involving the precentral gyrus (image 110-125) as seen on prior MRI. There is associated mass effect with a 5 mm left to right midline shift. There is mild vasogenic edema in the right frontal lobe predominantly involving the precentral gyrus due to 1.2 cm enhancing lesion in the right precentral gyrus. There is no acute intracranial hemorrhage, extra-axial fluid collection or hydrocephalus. The basal cisterns are patent. There are mild white matter microvascular ischemic changes. There is no large demarcated acute territorial infarct. There is intracranial calcific atherosclerosis. The visualized orbits are normal. The visualized paranasal sinuses and tympanomastoid cavities are clear. The skull base and calvarium are intact. IMPRESSION: Bilateral frontal lobe masses with associated vasogenic edema and mass effect. 5 mm left yktm-cl-mijdl midline shift. No acute hemorrhage or hydrocephalus. Signed: Reynaldo Richards MD Report Verified Date/Time:08/14/2017 22:55:19 Reading Location: [address] Transitional Reading Room Procedure Note Interface, External Ris In - 08/14/2017 10:57 PM CDT FINAL REPORT EXAM: CT head with and without contrast. CLINICAL HISTORY: Neoplasm: head, [employer]OD[employer]LYST, suspected For OR planning - STEALTH protocol 1mm cuts, zero gantry COMPARISON: Brain MRI 08/11/2017.. TECHNIQUE: CT images of the head were obtained with and without intravenous contrast. This exam was performed according to our departmental dose optimization program which includes automated exposure control, adjustment of the mA and/or kV according to patient's size and/or use of iterative reconstructive technique. FINDINGS: There is mild generalized parenchymal atrophy. There is diffuse vasogenic edema in the left frontoparietotemporal lobe with 3 x 2.8 cm enhancing lesion in the left frontal lobe involving the precentral gyrus (image 110-125) as seen on prior MRI. There is associated mass effect with a 5 mm left to right midline shift. There is mild vasogenic edema in the right frontal lobe predominantly involving the precentral gyrus due to 1.2 cm enhancing lesion in the right precentral gyrus. There is no acute intracranial hemorrhage, extra-axial fluid collection or hydrocephalus. The basal cisterns are patent. There are mild white matter microvascular ischemic changes. There is no large demarcated acute territorial infarct. There is intracranial calcific atherosclerosis. The visualized orbits are normal. The visualized paranasal sinuses and tympanomastoid cavities are clear. The skull base and calvarium are intact. IMPRESSION: Bilateral frontal lobe masses with associated vasogenic edema and mass effect. 5 mm left fxhz-ga-qhybr midline shift. No acute hemorrhage or hydrocephalus. Signed: Reynaldo Richards MD Report Verified Date/Time: 08/14/2017 22:55:19 Reading Location: [address] Reading Room Performing Organization Address City/State/Zipcode Phone Number U-NOTE EEG AWAKE AND DROWSY (08/13/2017 10:10 AM CDT) Narrative Performed At Neurophysiology Electroencephalogram Report U-NOTE DATE OF REPORT: 08/13/17 Date(s) of Study: 08/13/17 ACC: [id number] Start time: 0949 hrs Stop time: 1010 hrs ICD-10: R56.9 Unspecified Convulsions CPT Code: 59842 EEG: awake and asleep <40 min HISTORY: 62 year old male referred for EEG to assess 2 episodes of right arm shaking uncontrollably with eye deviation (unknown direction). Also has reported a single episode of right left shaking in the AM for a few seconds. He has a history significant for a left frontal lobe cavitary lesion with associated edema and RUE weakness. MEDICATIONS THAT COULD AFFECT EEG: Levetiracetam, [place] TECHNICAL SUMMARY: This is a digital video EEG recorded with 32 input channels reviewed with bipolar and referential montages using the modified combinatorial system nomenclature. DESCRIPTION OF RECORD: Background: There was a symmetric, reactive to eye opening, and well regulated posterior dominant rhythm of 7.5-8 Hz.More anteriorly, moderate amplitude 7-10 Hz activities predominated with low voltage 18-22 Hz activity present bi-frontally. Drowsiness showed a loss of faster frequencies with waxing and waning of the PDR. Vertex waves were seen in stage I sleep; symmetric frontocentral spindles were seen in stage II sleep. No focal or epileptiform abnormalities were seen. Activation Procedures: Hyperventilation was not performed. Photic stimulation was done from 3-18 Hz with no photoparoxysmal responses or driving. Events: None IMPRESSION: 1. Abnormal awake and asleep EEG due to mild continuous slowing of the background rhythms and posterior dominant rhythm. 2. No epileptiform or focal abnormalities or electrographic seizures seen. CLINICAL COMMENT: An EEG without epileptiform discharges does not exclude the possibility of epilepsy. If the clinical suspicion of epilepsy remains, consider additional prolonged EEG recordings to captured events in question. Chanell Solorio MD Epilepsy Fellow [facility] Figueroa [facility] Neurophysiology/Epilepsy Attending [place], [place] Procedure Note Interface, External Ris In - 08/13/2017 5:12 PM CDT Neurophysiology Electroencephalogram Report DATE OF REPORT: 08/13/17 Date(s) of Study: 08/13/17 ACC: [id number] Start time: 0949 hrs Stop time: 1010 hrs ICD-10: R56.9 Unspecified Convulsions CPT Code: 21183 EEG: awake and asleep <40 min HISTORY: 62 year old male referred for EEG to assess 2 episodes of right arm shaking uncontrollably with eye deviation (unknown direction). Also has reported a single episode of right left shaking in the AM for a few seconds. He has a history significant for a left frontal lobe cavitary lesion with associated edema and RUE weakness. MEDICATIONS THAT COULD AFFECT EEG: Levetiracetam, [place] TECHNICAL SUMMARY: This is a digital video EEG recorded with 32 input channels reviewed with bipolar and referential montages using the modified combinatorial system nomenclature. DESCRIPTION OF RECORD: Background: There was a symmetric, reactive to eye opening, and well regulated posterior dominant rhythm of 7.5-8 Hz. More anteriorly, moderate amplitude 7-10 Hz activities predominated with low voltage 18-22 Hz activity present bi-frontally. Drowsiness showed a loss of faster frequencies with waxing and waning of the PDR. Vertex waves were seen in stage I sleep; symmetric frontocentral spindles were seen in stage II sleep. No focal or epileptiform abnormalities were seen. Activation Procedures: Hyperventilation was not performed. Photic stimulation was done from 3-18 Hz with no photoparoxysmal responses or driving. Events: None IMPRESSION: 1. Abnormal awake and asleep EEG due to mild continuous slowing of the background rhythms and posterior dominant rhythm. 2. No epileptiform or focal abnormalities or electrographic seizures seen. CLINICAL COMMENT: An EEG without epileptiform discharges does not exclude the possibility of epilepsy. If the clinical suspicion of epilepsy remains, consider additional prolonged EEG recordings to captured events in question. Chanell Solorio MD Epilepsy Fellow [facility] Figuero[facility] Neurophysiology/Epilepsy Attending [place], [place] Performing Organization Address City/State/Zipcode Phone Number [facility] CT chest with IV contrast (08/11/2017 2:05 PM CDT) Narrative Performed At FINAL REPORT [facility] INDICATION: 61-year-old male with cavitary lesion on chest x-ray. COMPARISON: None available. TECHNIQUE: Chest CT exam WITHintravenous contrast. The exam was performed according to our department dose-optimization protocol, which includes automated exposure control, adjustments of mA and kV according to patient size. Iterative reconstructions are also sometimes employed. FINDINGS: In the left lower lobe posteriorly there is a cavitary lesion with an irregular wall and air-fluid level within it. It measures 8 x 7 x 6 cm. There is an associated small layering low density left pleural effusion. There is no consolidation or pneumonitis. Central airways are clear. There is mild soft tissue thickening of the left hilum contiguous with a enlarged heterogeneous enhancing subcarinal lymph node measuring 2.4 x 3.8 x 3.8 cm. No paratracheal or right hilar lymphadenopathy. Upper abdomen unremarkable. No suspicious osseous lesion demonstrated. IMPRESSION: 8 cm cavitary lesion with irregular wall in the left lower lobe, small left pleural effusion, and subcarinal lymphadenopathy. Infectious and neoplastic etiologies are considered. PET/CT had additional diagnostic information. Alternatively, the enlarged subcarinal lymph node could be sampled and would be most amenable to bronchoscopic biopsy. Signed: Isaac Garcia MD Report Verified Date/Time:08/11/2017 16:20:57 Reading Location: [facility] [id number] Ortho Consult Reading Room Procedure Note Interface, External Ris In - 08/11/2017 4:23 PM CDT FINAL REPORT INDICATION: 61-year-old male with cavitary lesion on chest x-ray. COMPARISON: None available. TECHNIQUE: Chest CT exam WITH intravenous contrast. The exam was performed according to our department dose-optimization protocol, which includes automated exposure control, adjustments of mA and kV according to patient size. Iterative reconstructions are also sometimes employed. FINDINGS: In the left lower lobe posteriorly there is a cavitary lesion with an irregular wall and air-fluid level within it. It measures 8 x 7 x 6 cm. There is an associated small layering low density left pleural effusion. There is no consolidation or pneumonitis. Central airways are clear. There is mild soft tissue thickening of the left hilum contiguous with a enlarged heterogeneous enhancing subcarinal lymph node measuring 2.4 x 3.8 x 3.8 cm. No paratracheal or right hilar lymphadenopathy. Upper abdomen unremarkable. No suspicious osseous lesion demonstrated. IMPRESSION: 8 cm cavitary lesion with irregular wall in the left lower lobe, small left pleural effusion, and subcarinal lymphadenopathy. Infectious and neoplastic etiologies are considered. PET/CT had additional diagnostic information. Alternatively, the enlarged subcarinal lymph node could be sampled and would be most amenable to bronchoscopic biopsy. Signed: Isaac Garcia MD Report Verified Date/Time: 08/11/2017 16:20:57 Reading Location: [facility] B1 [id number] Ortho Consult Reading Room Performing Organization Address City/State/Zipcode Phone Number [facility] CBC (Hemogram only) (08/11/2017 3:30 AM CDT) WBC 9.9 3.5 - 10.5 K/L [facility] RBC 5.21 4.63 - 6.08 M/L [facility] Hemoglobin 16.8 13.7 - 17.5 GM/DL [facility] Hematocrit 50.0 40.1 - 51.0 % [facility] MCV 96.0 (H) 79.0 - 92.2 fL [facility] MCH 32.2 25.7 - 32.2 pg [facility] MCHC 33.6 32.3 - 36.5 GM/DL [facility] RDW 13.6 11.6 - 14.4 % [facility] Platelets 236 150 - 450 K/CU MM [facility] MPV 9.2 (L) 9.4 - 12.4 fL [facility] nRBC 0 0 - 0 /100 WBC [facility] Specimen Blood Performing Organization Address City/State/Zipcode Phone Number [facility] [address] [place] [phone] CENTER after 01/21/2017 Advance Directives For more information, please contact:[address] [phone] Code Status Date Activated Date Inactivated Comments Full Code 09/08/2017 2:27 AM 09/20/2017 3:31 PM This code status was determined by: Patient Full Code 08/15/2017 3:01 PM 08/20/2017 9:50 PM This code status was determined by: Patient Full Code 08/11/2017 2:41 AM 08/15/2017 3:01 PM This code status was determined by: Patient
--- OUTSIDE RECORDS SUMMARY | 2018-01-22 03:07 | XMS REPORT ---
:1955 [facility] [address] [place] [id number] Care Team Providers Name Role Phone CHICHI FARAH DIONEMILLICENT Unavailable Unavailable VALENTINA CARMONA Unavailable Unavailable Problems This patient has no known problems. Allergies, Adverse Reactions, Alerts This patient has no known allergies or adverse reactions. Medications This patient has no known medications. Results Test Description Test Time Test Comments Text Results Atomic Results Result Comments FUNGUS CULTURE + SMEAR 2017-10-08 17:29:00 Test Item Value Reference Range Comments CULTURE (BEAKER) (test sgdb=2500) No fungus isolated in 28 days FUNGUS SMEAR (BEAKER) (test uqit=7703) No fungi seen FUNGUS CULTURE + [id number] 17:29:00 Test Item Value Reference Range Comments CULTURE (BEAKER) (test No fungus isolated in 28 days uiwq=5127) FUNGUS SMEAR (BEAKER) (test No fungi seen igbh=0406) BLOOD [id number] 12:00:00 Test Item Value Reference Range Comments CULTURE (BEAKER) (test rqzb=3952) No growth in 5 days BLOOD [id number] 12:00:00 Test Item Value Reference Range Comments CULTURE (BEAKER) (test mnrj=7448) No growth in 5 days POCT-GLUCOSE [id number] 12:37:00 Test Item Value Reference Range Comments POC-GLUCOSE METER (BEAKER) 136 mg/dL 70-[address] [facility] [address] [facility] (test yehu=7894) [facility] [address] POCT-GLUCOSE [id number] 08:18:00 Test Item Value Reference Range Comments POC-GLUCOSE METER (BEAKER) 107 mg/dL 70-[address] [facility] [address] [facility] (test wtuk=2679) [facility] [address] BASIC METABOLIC [id number] 06:19:00 Test Item Value Reference Range Comments SODIUM (BEAKER) (test 146 meq/L 136-145 mpow=105) POTASSIUM (BEAKER) (test 3.1 meq/L 3.5-5.1 teuu=909) CHLORIDE (BEAKER) (test 109 meq/L 98-107 gijk=608) CO2 (BEAKER) (test 21 meq/L 22-29 dsez=202) BLOOD UREA NITROGEN 4 mg/dL 7-21 (BEAKER) (test pzqc=127) CREATININE (BEAKER) (test 0.82 mg/dL 0.57-1.25 lfco=739) GLUCOSE RANDOM (BEAKER) 81 mg/dL 70-105 (test zfld=796) CALCIUM (BEAKER) (test 8.1 mg/dL 8.4-10.2 kfco=448) EGFR (BEAKER) (test 95 mL/min/1.73 sq m ESTIMATED GFR IS NOT nfsw=5505) ACCURATE CREATININE CLEARANCE IN PREDICTING GLOMERULAR FILTRATION RATE. ESTIMATED GFR IS NOT APPLICABLE FOR DIALYSIS PATIENTS. CBC W/PLT COUNT & AUTO [id number] 06:15:00 Test Item Value Reference Range Comments WHITE BLOOD CELL COUNT (BEAKER) (test lmlw=274) 11.9 K/ L 3.5-10.5 RED BLOOD CELL COUNT (BEAKER) (test hxas=979) 2.60 M/ L 4.63-6.08 HEMOGLOBIN (BEAKER) (test vhir=328) 8.6 GM/DL 13.7-17.5 HEMATOCRIT (BEAKER) (test blnx=427) 26.0 % 40.1-51.0 MEAN CORPUSCULAR VOLUME (BEAKER) (test eypw=705) 100.0 fL 79.0-92.2 MEAN CORPUSCULAR HEMOGLOBIN (BEAKER) (test 33.1 pg 25.7-32.2 sfni=044) MEAN CORPUSCULAR HEMOGLOBIN CONC (BEAKER) (test 33.1 GM/DL 32.3-36.5 rdxe=667) RED CELL DISTRIBUTION WIDTH (BEAKER) (test 15.7 % 11.6-14.4 tgrg=401) PLATELET COUNT (BEAKER) (test fibe=060) 545 K/CU MM 150-450 MEAN PLATELET VOLUME (BEAKER) (test pbyh=612) 8.6 fL 9.4-12.4 NUCLEATED RED BLOOD CELLS (BEAKER) (test 0 /100 WBC 0-0 vnfv=695) NEUTROPHILS RELATIVE PERCENT (BEAKER) (test 66 % pwwg=209) LYMPHOCYTES RELATIVE PERCENT (BEAKER) (test 14 % kbmb=144) MONOCYTES RELATIVE PERCENT (BEAKER) (test 12 % kiab=794) EOSINOPHILS RELATIVE PERCENT (BEAKER) (test 3 % pqnj=149) BASOPHILS RELATIVE PERCENT (BEAKER) (test 1 % jtmt=900) NEUTROPHILS ABSOLUTE COUNT (BEAKER) (test 7.84 K/ L 1.78-5.38 apxa=032) LYMPHOCYTES ABSOLUTE COUNT (BEAKER) (test 1.71 K/ L 1.32-3.57 afmd=229) MONOCYTES ABSOLUTE COUNT (BEAKER) (test 1.41 K/ L 0.30-0.82 pfkc=156) EOSINOPHILS ABSOLUTE COUNT (BEAKER) (test 0.37 K/ L 0.04-0.54 aeve=141) BASOPHILS ABSOLUTE COUNT (BEAKER) (test 0.07 K/ L 0.01-0.08 quia=007) IMMATURE GRANULOCYTES-RELATIVE PERCENT (BEAKER) 4 % 0-1 (test welj=0111) POCT-GLUCOSE [id number] 21:21:00 Test Item Value Reference Range Comments POC-GLUCOSE METER (BEAKER) 102 mg/dL 70-110 TESTED AT [address] (test vgzh=5033) [place] [address] POCT-GLUCOSE [id number] 17:40:00 Test Item Value Reference Range Comments POC-GLUCOSE METER (BEAKER) 146 mg/dL 70-110 TESTED AT [address] (test xsdk=4999) [place] [address] POCT-GLUCOSE [id number] 12:07:00 Test Item Value Reference Range Comments POC-GLUCOSE METER (BEAKER) 122 mg/dL 70-110 TESTED AT [address] (test rdtb=9883) [place] [address] CBC W/PLT COUNT & AUTO [id number] 09:12:00 Test Item Value Reference Range Comments WHITE BLOOD CELL COUNT (BEAKER) (test lulq=811) 13.4 K/ L 3.5-10.5 RED BLOOD CELL COUNT (BEAKER) (test whmd=622) 2.77 M/ L 4.63-6.08 HEMOGLOBIN (BEAKER) (test mnuz=860) 8.8 GM/DL 13.7-17.5 HEMATOCRIT (BEAKER) (test uhik=854) 27.2 % 40.1-51.0 MEAN CORPUSCULAR VOLUME (BEAKER) (test wwoo=519) 98.2 fL 79.0-92.2 MEAN CORPUSCULAR HEMOGLOBIN (BEAKER) (test 31.8 pg 25.7-32.2 okln=757) MEAN CORPUSCULAR HEMOGLOBIN CONC (BEAKER) (test 32.4 GM/DL 32.3-36.5 odsy=972) RED CELL DISTRIBUTION WIDTH (BEAKER) (test 15.7 % 11.6-14.4 wxbp=537) PLATELET COUNT (BEAKER) (test rhbo=721) 625 K/CU MM 150-450 MEAN PLATELET VOLUME (BEAKER) (test dkdp=607) 8.7 fL 9.4-12.4 NUCLEATED RED BLOOD CELLS (BEAKER) (test 0 /100 WBC 0-0 ccfp=531) (CELLAVISION MANUAL DIFF)2017-09-19 09:12:00 Test Item Value Reference Range Comments NEUTROPHILS - REL (CELLAVISION)(BEAKER) (test 84 % uqld=7661) LYMPHOCYTES - REL (CELLAVISION)(BEAKER) (test 6 % dtgn=9055) MONOCYTES - REL (CELLAVISION)(BEAKER) (test 5 % gbyi=0363) EOSINOPHILS - REL (CELLAVISION)(BEAKER) (test 3 % skwl=1939) METAMYELOCYTES - REL (CELLAVISION)(BEAKER) (test 1 % 0-0 nfwi=4198) MYELOCYTES - REL (CELLAVISION)(BEAKER) (test 1 % 0-0 ivkl=9801) NEUTROPHILS - ABS (CELLAVISION)(BEAKER) (test 11.26 K/ul 1.78-5.38 jdsa=5873) LYMPHOCYTES - ABS (CELLAVISION)(BEAKER) (test 0.80 K/ul 1.32-3.57 oiat=9550) MONOCYTES - ABS (CELLAVISION)(BEAKER) (test 0.67 K/uL 0.30-0.82 jehu=8614) EOSINOPHILS - ABS (CELLAVISION)(BEAKER) (test 0.40 K/uL 0.04-0.54 cauu=3040) METAMYELOCYTES - ABS (CELLAVISION)(BEAKER) (test 0.13 K/uL 0.00-0.00 bdny=0654) MYELOCYTES-ABS (CELLAVISION)(BEAKER) (test 0.13 K/uL 0.00-0.00 yhfg=2591) TOTAL COUNTED (BEAKER) (test pyln=2690) 100 WBC MORPHOLOGY (BEAKER) (test xdyh=991) Normal LARGE PLT(BEAKER) (test uwro=9102) Present POLYCHROMATOPHILLIC RBCS(BEAKER) (test annk=737) 1+ few ANISOCYTOSIS (BEAKER) (test azba=825) 1+ few ARTIFACT (CELLAVISION)(BEAKER) (test ofjh=9547) Present PLATELET CONCENTRATION (CELLAVISION)(BEAKER) Increased (test nqwd=4601) Received comment: User comments: Slide comments:POCT-GLUCOSE [id number] 08: 05:00 Test Item Value Reference Range Comments POC-GLUCOSE METER (BEAKER) 99 mg/dL 70-[address] [facility] [address] [facility] (test ryqo=6039) [facility] [address] BASIC METABOLIC [id number] 05:59:00 Test Item Value Reference Range Comments SODIUM (BEAKER) (test 137 meq/L 136-145 wazm=686) POTASSIUM (BEAKER) (test 3.4 meq/L 3.5-5.1 sknm=010) CHLORIDE (BEAKER) (test 107 meq/L 98-107 urnp=455) CO2 (BEAKER) (test 22 meq/L 22-29 xaqy=087) BLOOD UREA NITROGEN 5 mg/dL 7-21 (BEAKER) (test dfya=035) CREATININE (BEAKER) (test 0.75 mg/dL 0.57-1.25 awpk=836) GLUCOSE RANDOM (BEAKER) 90 mg/dL 70-105 (test zlvj=044) CALCIUM (BEAKER) (test 8.7 mg/dL 8.4-10.2 gjij=286) EGFR (BEAKER) (test 105 mL/min/1.73 sq m ESTIMATED GFR IS NOT bsrm=7438) ACCURATE CREATININE CLEARANCE IN PREDICTING GLOMERULAR FILTRATION RATE. ESTIMATED GFR IS NOT APPLICABLE FOR DIALYSIS PATIENTS. POCT-GLUCOSE [id number] 21:15:00 Test Item Value Reference Range Comments POC-GLUCOSE METER (BEAKER) 121 mg/dL 70-110 TESTED AT [address] (test elhc=8791) [place] [id number] POCT-GLUCOSE [id number] 17:17:00 Test Item Value Reference Range Comments POC-GLUCOSE METER (BEAKER) 126 mg/dL 70-110 TESTED AT [address] (test sebh=8283) [place] [id number] POCT-GLUCOSE [id number] 12:08:00 Test Item Value Reference Range Comments POC-GLUCOSE METER (BEAKER) 212 mg/dL 70-110 TESTED AT [address] (test ymnt=9650) [place] [address] POCT-GLUCOSE [id number] 08:43:00 Test Item Value Reference Range Comments POC-GLUCOSE METER (BEAKER) 95 mg/dL 70-110 TESTED AT [address] (test gkns=4414) [place] [address] BASIC METABOLIC [id number] 07:30:00 Test Item Value Reference Range Comments SODIUM (BEAKER) (test 140 meq/L 136-145 yasp=809) POTASSIUM (BEAKER) (test 3.1 meq/L 3.5-5.1 gogc=948) CHLORIDE (BEAKER) (test 110 meq/L 98-107 jtve=345) CO2 (BEAKER) (test 21 meq/L 22-29 aqmc=092) BLOOD UREA NITROGEN 4 mg/dL 7-21 (BEAKER) (test vuxe=570) CREATININE (BEAKER) (test 0.68 mg/dL 0.57-1.25 zhxq=781) GLUCOSE RANDOM (BEAKER) 76 mg/dL 70-105 (test vkmj=022) CALCIUM (BEAKER) (test 7.9 mg/dL 8.4-10.2 rrox=525) EGFR (BEAKER) (test 117 mL/min/1.73 sq m ESTIMATED GFR IS NOT bkkg=6873) ACCURATE CREATININE CLEARANCE IN PREDICTING GLOMERULAR FILTRATION RATE. ESTIMATED GFR IS NOT APPLICABLE FOR DIALYSIS PATIENTS. CBC W/PLT COUNT & AUTO [id number] 06:41:00 Test Item Value Reference Range Comments WHITE BLOOD CELL COUNT (BEAKER) (test yhnf=544) 11.8 K/ L 3.5-10.5 RED BLOOD CELL COUNT (BEAKER) (test skip=163) 2.33 M/ L 4.63-6.08 HEMOGLOBIN (BEAKER) (test kokh=580) 7.7 GM/DL 13.7-17.5 HEMATOCRIT (BEAKER) (test jddh=694) 22.8 % 40.1-51.0 MEAN CORPUSCULAR VOLUME (BEAKER) (test xxym=183) 97.9 fL 79.0-92.2 MEAN CORPUSCULAR HEMOGLOBIN (BEAKER) (test 33.0 pg 25.7-32.2 ffbd=387) MEAN CORPUSCULAR HEMOGLOBIN CONC (BEAKER) (test 33.8 GM/DL 32.3-36.5 awbc=020) RED CELL DISTRIBUTION WIDTH (BEAKER) (test 15.5 % 11.6-14.4 ovom=999) PLATELET COUNT (BEAKER) (test oymw=868) 494 K/CU MM 150-450 MEAN PLATELET VOLUME (BEAKER) (test vfdv=135) 8.8 fL 9.4-12.4 NUCLEATED RED BLOOD CELLS (BEAKER) (test 0 /100 WBC 0-0 cdxq=461) NEUTROPHILS RELATIVE PERCENT (BEAKER) (test 68 % evmf=500) LYMPHOCYTES RELATIVE PERCENT (BEAKER) (test 13 % hnry=570) MONOCYTES RELATIVE PERCENT (BEAKER) (test 11 % rjft=589) EOSINOPHILS RELATIVE PERCENT (BEAKER) (test 3 % atie=087) BASOPHILS RELATIVE PERCENT (BEAKER) (test 0 % bvvj=785) NEUTROPHILS ABSOLUTE COUNT (BEAKER) (test 8.08 K/ L 1.78-5.38 srpd=030) LYMPHOCYTES ABSOLUTE COUNT (BEAKER) (test 1.48 K/ L 1.32-3.57 dvml=126) MONOCYTES ABSOLUTE COUNT (BEAKER) (test 1.35 K/ L 0.30-0.82 yxlm=612) EOSINOPHILS ABSOLUTE COUNT (BEAKER) (test 0.33 K/ L 0.04-0.54 pbsw=995) BASOPHILS ABSOLUTE COUNT (BEAKER) (test 0.03 K/ L 0.01-0.08 nwfa=387) IMMATURE GRANULOCYTES-RELATIVE PERCENT (BEAKER) 5 % 0-1 (test vdqj=4989) POCT-GLUCOSE [id number] 21:26:00 Test Item Value Reference Range Comments POC-GLUCOSE METER (BEAKER) 121 mg/dL 70-110 TESTED AT [address] (test rxqj=8470) [place] [address] POCT-GLUCOSE [id number] 17:24:00 Test Item Value Reference Range Comments POC-GLUCOSE METER (BEAKER) 103 mg/dL 70-110 TESTED AT [address] (test pwml=7200) [place] [address] [id number] 16:49:00 Test Item Value Reference Range Comments POTASSIUM (BEAKER) (test uupa=096) 4.0 meq/L 3.5-5.1 MISCELLANEOUS LAB [id number] 14:30:00 Test Item Value Reference Range Comments SCAN RESULT (test utqr=[id number]) SEE SCANNED RESULTS POCT-GLUCOSE [id number] 12:33:00 Test Item Value Reference Range Comments POC-GLUCOSE METER (BEAKER) 106 mg/dL 70-110 TESTED AT [address] (test aaja=5157) [place] [address] CBC W/PLT COUNT & AUTO [id number] 11:51:00 Test Item Value Reference Range Comments WHITE BLOOD CELL COUNT (BEAKER) (test dzcr=785) 11.0 K/ L 3.5-10.5 RED BLOOD CELL COUNT (BEAKER) (test wvnr=887) 2.36 M/ L 4.63-6.08 HEMOGLOBIN (BEAKER) (test oxfm=168) 7.7 GM/DL 13.7-17.5 HEMATOCRIT (BEAKER) (test wnkd=703) 23.4 % 40.1-51.0 MEAN CORPUSCULAR VOLUME (BEAKER) (test ijgv=077) 99.2 fL 79.0-92.2 MEAN CORPUSCULAR HEMOGLOBIN (BEAKER) (test 32.6 pg 25.7-32.2 gmot=843) MEAN CORPUSCULAR HEMOGLOBIN CONC (BEAKER) (test 32.9 GM/DL 32.3-36.5 qcck=972) RED CELL DISTRIBUTION WIDTH (BEAKER) (test 15.5 % 11.6-14.4 bzqc=305) PLATELET COUNT (BEAKER) (test ouqz=634) 444 K/CU MM 150-450 MEAN PLATELET VOLUME (BEAKER) (test ozem=529) 8.7 fL 9.4-12.4 NUCLEATED RED BLOOD CELLS (BEAKER) (test 0 /100 WBC 0-0 rfoh=329) (CELLAVISION MANUAL DIFF)2017-09-17 11:51:00 Test Item Value Reference Range Comments NEUTROPHILS - REL (CELLAVISION)(BEAKER) (test 75 % xfzz=3909) LYMPHOCYTES - REL (CELLAVISION)(BEAKER) (test 11 % lmup=5816) MONOCYTES - REL (CELLAVISION)(BEAKER) (test 9 % qocb=0240) EOSINOPHILS - REL (CELLAVISION)(BEAKER) (test 3 % vulc=1140) ATYPICAL LYMPHOCYTES - REL (CELLAVISION)(BEAKER) 2 % 0-0 (test pfyj=8924) NEUTROPHILS - ABS (CELLAVISION)(BEAKER) (test 8.25 K/ul 1.78-5.38 xvaq=7469) LYMPHOCYTES - ABS (CELLAVISION)(BEAKER) (test 1.21 K/ul 1.32-3.57 ubqy=7759) MONOCYTES - ABS (CELLAVISION)(BEAKER) (test 0.99 K/uL 0.30-0.82 gajo=1333) EOSINOPHILS - ABS (CELLAVISION)(BEAKER) (test 0.33 K/uL 0.04-0.54 edds=8191) ATYPICAL LYMPHOCYTES - ABS (CELLAVISION)(BEAKER) 0.22 K/uL 0.00-0.00 (test sihh=9032) TOTAL COUNTED (BEAKER) (test qrvx=3261) 100 RBC MORPHOLOGY (BEAKER) (test sblb=133) Normal SMUDGE CELLS (BEAKER) (test mjsm=5972) Present GIANT PLATELETS (BEAKER) (test zrni=265) Present PLATELET CONCENTRATION (CELLAVISION)(BEAKER) (test Adequate dnpe=4496) Received comment: User comments: Slide comments:POCT-GLUCOSE [id number] 08: 03:00 Test Item Value Reference Range Comments POC-GLUCOSE METER (BEAKER) 96 mg/dL 70-110 TESTED AT [address] (test depb=3590) [place] [id number] BASIC METABOLIC [id number] 07:48:00 Test Item Value Reference Range Comments SODIUM (BEAKER) (test 137 meq/L 136-145 eytu=448) POTASSIUM (BEAKER) (test 2.5 meq/L 3.5-5.1 wfol=731) CHLORIDE (BEAKER) (test 111 meq/L 98-107 iqjm=728) CO2 (BEAKER) (test 19 meq/L 22-29 irjh=992) BLOOD UREA NITROGEN 4 mg/dL 7-21 (BEAKER) (test ydxb=724) CREATININE (BEAKER) (test 0.67 mg/dL 0.57-1.25 wogx=543) GLUCOSE RANDOM (BEAKER) 74 mg/dL 70-105 (test hoaq=967) CALCIUM (BEAKER) (test 7.3 mg/dL 8.4-10.2 pmzs=766) EGFR (BEAKER) (test 119 mL/min/1.73 sq m ESTIMATED GFR IS NOT tzrx=0437) ACCURATE CREATININE CLEARANCE IN PREDICTING GLOMERULAR FILTRATION RATE. ESTIMATED GFR IS NOT APPLICABLE FOR DIALYSIS PATIENTS. POCT-GLUCOSE [id number] 21:13:00 Test Item Value Reference Range Comments POC-GLUCOSE METER (BEAKER) 114 mg/dL 70-110 TESTED AT [address] (test zhiu=1283) [place] [address] POCT-GLUCOSE [id number] 18:11:00 Test Item Value Reference Range Comments POC-GLUCOSE METER (BEAKER) 122 mg/dL 70-110 TESTED AT [address] (test zjzy=5326) [place] [address] CBC W/PLT COUNT & AUTO [id number] 10:27:00 Test Item Value Reference Range Comments WHITE BLOOD CELL COUNT (BEAKER) (test uokc=253) 12.1 K/ L 3.5-10.5 RED BLOOD CELL COUNT (BEAKER) (test njds=908) 2.51 M/ L 4.63-6.08 HEMOGLOBIN (BEAKER) (test daul=690) 8.2 GM/DL 13.7-17.5 HEMATOCRIT (BEAKER) (test ruoq=998) 24.6 % 40.1-51.0 MEAN CORPUSCULAR VOLUME (BEAKER) (test ckap=545) 98.0 fL 79.0-92.2 MEAN CORPUSCULAR HEMOGLOBIN (BEAKER) (test 32.7 pg 25.7-32.2 sjxt=884) MEAN CORPUSCULAR HEMOGLOBIN CONC (BEAKER) (test 33.3 GM/DL 32.3-36.5 hkdh=981) RED CELL DISTRIBUTION WIDTH (BEAKER) (test 15.3 % 11.6-14.4 onau=391) PLATELET COUNT (BEAKER) (test kyrz=573) 415 K/CU MM 150-450 MEAN PLATELET VOLUME (BEAKER) (test iqzj=960) 8.9 fL 9.4-12.4 NUCLEATED RED BLOOD CELLS (BEAKER) (test 0 /100 WBC 0-0 gjvc=964) (CELLAVISION MANUAL DIFF)2017-09-16 10:27:00 Test Item Value Reference Range Comments NEUTROPHILS - REL (CELLAVISION)(BEAKER) (test 79 % jzgw=0345) LYMPHOCYTES - REL (CELLAVISION)(BEAKER) (test 7 % imei=9488) MONOCYTES - REL (CELLAVISION)(BEAKER) (test 7 % pqdf=2112) EOSINOPHILS - REL (CELLAVISION)(BEAKER) (test 2 % naba=8176) METAMYELOCYTES - REL (CELLAVISION)(BEAKER) (test 1 % 0-0 teft=2957) MYELOCYTES - REL (CELLAVISION)(BEAKER) (test 4 % 0-0 vpzi=0922) NEUTROPHILS - ABS (CELLAVISION)(BEAKER) (test 9.56 K/ul 1.78-5.38 uotx=0838) LYMPHOCYTES - ABS (CELLAVISION)(BEAKER) (test 0.85 K/ul 1.32-3.57 xkjg=1739) MONOCYTES - ABS (CELLAVISION)(BEAKER) (test 0.85 K/uL 0.30-0.82 xzlz=3205) EOSINOPHILS - ABS (CELLAVISION)(BEAKER) (test 0.24 K/uL 0.04-0.54 twjx=6745) METAMYELOCYTES - ABS (CELLAVISION)(BEAKER) (test 0.12 K/uL 0.00-0.00 kmbq=6312) MYELOCYTES-ABS (CELLAVISION)(BEAKER) (test 0.48 K/uL 0.00-0.00 amyg=0199) TOTAL COUNTED (BEAKER) (test tlph=7663) 100 WBC MORPHOLOGY (BEAKER) (test nkks=966) Normal PLT MORPHOLOGY (BEAKER) (test rjcu=037) Normal POLYCHROMATOPHILLIC RBCS(BEAKER) (test hsgc=126) 1+ few ANISOCYTOSIS (BEAKER) (test xuqb=672) 1+ few ARTIFACT (CELLAVISION)(BEAKER) (test xfac=0821) Present PLATELET CONCENTRATION (CELLAVISION)(BEAKER) (test Adequate jgeu=6959) Received comment: User comments: Slide comments:BASIC METABOLIC [id number] 06:46:00 Test Item Value Reference Range Comments SODIUM (BEAKER) (test 139 meq/L 136-145 brjs=986) POTASSIUM (BEAKER) (test 2.8 meq/L 3.5-5.1 liac=880) CHLORIDE (BEAKER) (test 109 meq/L 98-107 vdfh=679) CO2 (BEAKER) (test 22 meq/L 22-29 pups=829) BLOOD UREA NITROGEN 5 mg/dL 7-21 (BEAKER) (test erxq=275) CREATININE (BEAKER) (test 0.81 mg/dL 0.57-1.25 plld=103) GLUCOSE RANDOM (BEAKER) 89 mg/dL 70-105 (test tyzd=877) CALCIUM (BEAKER) (test 8.0 mg/dL 8.4-10.2 bgiu=917) EGFR (BEAKER) (test 96 mL/min/1.73 sq m ESTIMATED GFR IS NOT fqtr=3873) ACCURATE CREATININE CLEARANCE IN PREDICTING GLOMERULAR FILTRATION RATE. ESTIMATED GFR IS NOT APPLICABLE FOR DIALYSIS PATIENTS. POCT-GLUCOSE [id number] 21:18:00 Test Item Value Reference Range Comments POC-GLUCOSE METER (BEAKER) 110 mg/dL 70-110 TESTED AT [place] [id number] [facility] (test qltd=4920) [facility] [address] POCT-GLUCOSE [id number] 17:41:00 Test Item Value Reference Range Comments POC-GLUCOSE METER (BEAKER) 110 mg/dL 70-110 TESTED AT [place] [id number] [facility] (test reiu=6844) [facility] [address] [id number] 17:32:00 Test Item Value Reference Range Comments POTASSIUM (BEAKER) (test sazy=462) 3.4 meq/L 3.5-5.1 POCT-GLUCOSE [id number] 12:01:00 Test Item Value Reference Range Comments POC-GLUCOSE METER (BEAKER) 135 mg/dL 70-110 TESTED AT [address] (test ddrq=3837) [facility] [address] BLOOD [id number] 11:00:00 Test Item Value Reference Range Comments CULTURE (BEAKER) (test ixim=4054) No growth in 5 days BLOOD [id number] 11:00:00 Test Item Value Reference Range Comments CULTURE (BEAKER) (test koqy=4049) No growth in 5 days CBC W/PLT COUNT & AUTO [id number] 10:34:00 Test Item Value Reference Range Comments WHITE BLOOD CELL COUNT (BEAKER) (test jfry=184) 9.9 K/ L 3.5-10.5 RED BLOOD CELL COUNT (BEAKER) (test cqxw=940) 2.48 M/ L 4.63-6.08 HEMOGLOBIN (BEAKER) (test kknw=826) 8.0 GM/DL 13.7-17.5 HEMATOCRIT (BEAKER) (test klza=081) 24.0 % 40.1-51.0 MEAN CORPUSCULAR VOLUME (BEAKER) (test goks=085) 96.8 fL 79.0-92.2 MEAN CORPUSCULAR HEMOGLOBIN (BEAKER) (test 32.3 pg 25.7-32.2 adlv=526) MEAN CORPUSCULAR HEMOGLOBIN CONC (BEAKER) (test 33.3 GM/DL 32.3-36.5 fqpy=595) RED CELL DISTRIBUTION WIDTH (BEAKER) (test 14.9 % 11.6-14.4 jcjf=134) PLATELET COUNT (BEAKER) (test toig=755) 402 K/CU MM 150-450 MEAN PLATELET VOLUME (BEAKER) (test laih=349) 9.0 fL 9.4-12.4 NUCLEATED RED BLOOD CELLS (BEAKER) (test 0 /100 WBC 0-0 gdsf=419) (CELLAVISION MANUAL DIFF)2017-09-15 10:34:00 Test Item Value Reference Range Comments NEUTROPHILS - REL (CELLAVISION)(BEAKER) (test 82 % zuib=7465) LYMPHOCYTES - REL (CELLAVISION)(BEAKER) (test 9 % dghu=1359) MONOCYTES - REL (CELLAVISION)(BEAKER) (test 3 % sbuz=8529) EOSINOPHILS - REL (CELLAVISION)(BEAKER) (test 3 % hyra=0469) MYELOCYTES - REL (CELLAVISION)(BEAKER) (test 2 % 0-0 tiqn=0243) BANDS - REL (CELLAVISION)(BEAKER) (test rhcf=1698) 1 % 0-10 NEUTROPHILS - ABS (CELLAVISION)(BEAKER) (test 8.12 K/ul 1.78-5.38 clya=9891) LYMPHOCYTES - ABS (CELLAVISION)(BEAKER) (test 0.89 K/ul 1.32-3.57 rmws=2182) MONOCYTES - ABS (CELLAVISION)(BEAKER) (test 0.30 K/uL 0.30-0.82 rhzd=3247) EOSINOPHILS - ABS (CELLAVISION)(BEAKER) (test 0.30 K/uL 0.04-0.54 umpq=4538) MYELOCYTES-ABS (CELLAVISION)(BEAKER) (test 0.20 K/uL 0.00-0.00 fici=1542) BANDS - ABS (CELLAVISION)(BEAKER) (test wudy=8576) 0.10 K/uL 0.00-0.80 TOTAL COUNTED (BEAKER) (test mkju=1993) 100 WBC MORPHOLOGY (BEAKER) (test vqva=158) Normal PLT MORPHOLOGY (BEAKER) (test grnv=549) Normal ANISOCYTOSIS (BEAKER) (test qfwj=958) 1+ few ARTIFACT (CELLAVISION)(BEAKER) (test emks=9474) Present PLATELET CONCENTRATION (CELLAVISION)(BEAKER) (test Adequate heao=0254) Received comment: User comments: Slide comments:POCT-GLUCOSE [id number] 08: 31:00 Test Item Value Reference Range Comments POC-GLUCOSE METER (BEAKER) 105 mg/dL 70-[address] [facility] [address] [facility] (test fhoy=2551) [facility] [address] [id number] 07:53:00 Test Item Value Reference Range Comments PHOSPHORUS (BEAKER) (test hfoe=210) 2.9 mg/dL 2.3-4.7 [id number] 07:53:00 Test Item Value Reference Range Comments MAGNESIUM (BEAKER) (test aoio=164) 1.7 mg/dL 1.6-2.6 BASIC METABOLIC [id number] 06:21:00 Test Item Value Reference Range Comments SODIUM (BEAKER) (test 138 meq/L 136-145 fehl=209) POTASSIUM (BEAKER) (test 2.8 meq/L 3.5-5.1 mpus=346) CHLORIDE (BEAKER) (test 108 meq/L 98-107 jzkz=673) CO2 (BEAKER) (test 23 meq/L 22-29 gqoj=486) BLOOD UREA NITROGEN 4 mg/dL 7-21 (BEAKER) (test csqw=081) CREATININE (BEAKER) (test 0.73 mg/dL 0.57-1.25 nmrp=408) GLUCOSE RANDOM (BEAKER) 86 mg/dL 70-105 (test nbcz=326) CALCIUM (BEAKER) (test 8.2 mg/dL 8.4-10.2 gshz=209) EGFR (BEAKER) (test 108 mL/min/1.73 sq m ESTIMATED GFR IS NOT vtem=4822) ACCURATE CREATININE CLEARANCE IN PREDICTING GLOMERULAR FILTRATION RATE. ESTIMATED GFR IS NOT APPLICABLE FOR DIALYSIS PATIENTS. [id number] 21:24:00 Test Item Value Reference Range Comments POTASSIUM (BEAKER) (test avga=714) 3.3 meq/L 3.5-5.1 POCT-GLUCOSE [id number] 20:50:00 Test Item Value Reference Range Comments POC-GLUCOSE METER (BEAKER) 121 mg/dL 70-110 TESTED AT [place] [id number] [facility] (test gpxk=0809) [place] [id number] POCT-GLUCOSE [id number] 16:57:00 Test Item Value Reference Range Comments POC-GLUCOSE METER (BEAKER) 118 mg/dL 70-[address] [facility] [address] [facility] (test ibmk=7478) [place] [address] POCT-GLUCOSE [id number] 12:47:00 Test Item Value Reference Range Comments POC-GLUCOSE METER (BEAKER) 175 mg/dL 70-[address] [facility] [address] (test aswf=9935) [place] [address] CBC W/PLT COUNT & AUTO [id number] 09:00:00 Test Item Value Reference Range Comments WHITE BLOOD CELL COUNT (BEAKER) (test ptlp=583) 8.7 K/ L 3.5-10.5 RED BLOOD CELL COUNT (BEAKER) (test byry=831) 2.41 M/ L 4.63-6.08 HEMOGLOBIN (BEAKER) (test cnac=678) 7.8 GM/DL 13.7-17.5 HEMATOCRIT (BEAKER) (test mcvi=764) 23.0 % 40.1-51.0 MEAN CORPUSCULAR VOLUME (BEAKER) (test khzi=159) 95.4 fL 79.0-92.2 MEAN CORPUSCULAR HEMOGLOBIN (BEAKER) (test 32.4 pg 25.7-32.2 nofj=680) MEAN CORPUSCULAR HEMOGLOBIN CONC (BEAKER) (test 33.9 GM/DL 32.3-36.5 cjxm=078) RED CELL DISTRIBUTION WIDTH (BEAKER) (test 14.6 % 11.6-14.4 yvfm=793) PLATELET COUNT (BEAKER) (test bfom=643) 352 K/CU MM 150-450 MEAN PLATELET VOLUME (BEAKER) (test tyce=712) 8.8 fL 9.4-12.4 NUCLEATED RED BLOOD CELLS (BEAKER) (test 0 /100 WBC 0-0 dhvm=688) NEUTROPHILS RELATIVE PERCENT (BEAKER) (test 63 % azzb=960) LYMPHOCYTES RELATIVE PERCENT (BEAKER) (test 13 % ijbh=208) MONOCYTES RELATIVE PERCENT (BEAKER) (test 12 % xgvd=728) EOSINOPHILS RELATIVE PERCENT (BEAKER) (test 3 % grur=988) BASOPHILS RELATIVE PERCENT (BEAKER) (test 1 % vkqk=135) NEUTROPHILS ABSOLUTE COUNT (BEAKER) (test 5.51 K/ L 1.78-5.38 jknm=017) LYMPHOCYTES ABSOLUTE COUNT (BEAKER) (test 1.17 K/ L 1.32-3.57 mvwg=199) MONOCYTES ABSOLUTE COUNT (BEAKER) (test 1.07 K/ L 0.30-0.82 qazq=733) EOSINOPHILS ABSOLUTE COUNT (BEAKER) (test 0.29 K/ L 0.04-0.54 ntdn=998) BASOPHILS ABSOLUTE COUNT (BEAKER) (test 0.05 K/ L 0.01-0.08 vrvb=820) IMMATURE GRANULOCYTES-RELATIVE PERCENT (BEAKER) 7 % 0-1 (test ftjx=3078) (MANUAL DIFFERENTIAL)2017-09-14 09:00:00 Test Item Value Reference Range Comments TOTAL COUNTED (BEAKER) (test qdxf=8693) WBC MORPHOLOGY (BEAKER) (test ajaz=655) Normal PLT MORPHOLOGY (BEAKER) (test pwjf=930) Normal RBC MORPHOLOGY (BEAKER) (test jpzu=289) Normal POCT-GLUCOSE [id number] 07:59:00 Test Item Value Reference Range Comments POC-GLUCOSE METER (BEAKER) 105 mg/dL 70-[address] [facility] [address] [facility] (test ysah=2764) [facility] [address] [id number] 07:22:00 Test Item Value Reference Range Comments MAGNESIUM (BEAKER) (test gquh=296) 1.6 mg/dL 1.6-2.6 BASIC METABOLIC [id number] 05:59:00 Test Item Value Reference Range Comments SODIUM (BEAKER) (test 140 meq/L 136-145 lsbr=234) POTASSIUM (BEAKER) (test 2.3 meq/L 3.5-5.1 mcic=883) CHLORIDE (BEAKER) (test 106 meq/L 98-107 utuo=469) CO2 (BEAKER) (test 25 meq/L 22-29 nokk=465) BLOOD UREA NITROGEN 5 mg/dL 7-21 (BEAKER) (test bqmv=523) CREATININE (BEAKER) (test 0.79 mg/dL 0.57-1.25 qdka=249) GLUCOSE RANDOM (BEAKER) 93 mg/dL 70-105 (test iuse=533) CALCIUM (BEAKER) (test 8.2 mg/dL 8.4-10.2 jflb=527) EGFR (BEAKER) (test 99 mL/min/1.73 sq m ESTIMATED GFR IS NOT knzr=4898) ACCURATE CREATININE CLEARANCE IN PREDICTING GLOMERULAR FILTRATION RATE. ESTIMATED GFR IS NOT APPLICABLE FOR DIALYSIS PATIENTS. POCT-GLUCOSE [id number] 21:52:00 Test Item Value Reference Range Comments POC-GLUCOSE METER (BEAKER) 115 mg/dL 70-110 TESTED AT [address] (test ftle=0684) [place] [id number] POCT-GLUCOSE [id number] 16:50:00 Test Item Value Reference Range Comments POC-GLUCOSE METER (BEAKER) 118 mg/dL 70-110 TESTED AT [address] (test xned=0050) [place] [address] RAD, CHEST, 1 VIEW, NON [id number] 13:54:00Reason for exam:->PICC PlacementReason for exam:->PICC PlacementFINAL REPORT AP chest. HISTORY: PICC placement COMPARISON: 09/09/2017 IMPRESSION:Left arm PICC placed with tip at upper SVC. Stable cardiac silhouette. Left basilar airspace disease and pleural thickening or effusion unchanged. Right lung clear. No pneumothorax. Signed: Lisbeth Mcpherson MDReport Verified Date/Time: 13:54:15 Reading Location: [facility] Reading Room ANAEROBIC [id number] 12:01:00 Test Item Value Reference Range Comments CULTURE (BEAKER) (test xbtb=9180) No anaerobes isolated ANAEROBIC [id number] 11:59:00 Test Item Value Reference Range Comments CULTURE (BEAKER) (test bpty=7028) No anaerobes isolated POCT-GLUCOSE [id number] 11:56:00 Test Item Value Reference Range Comments POC-GLUCOSE METER (BEAKER) 95 mg/dL 70-110 TESTED AT [address] (test rdhy=3031) [place] [id number] CBC W/PLT COUNT & AUTO [id number] 11:51:00 Test Item Value Reference Range Comments WHITE BLOOD CELL COUNT (BEAKER) (test diok=148) 10.0 K/ L 3.5-10.5 RED BLOOD CELL COUNT (BEAKER) (test pezi=928) 2.54 M/ L 4.63-6.08 HEMOGLOBIN (BEAKER) (test sdzf=316) 8.3 GM/DL 13.7-17.5 HEMATOCRIT (BEAKER) (test xewh=739) 25.4 % 40.1-51.0 MEAN CORPUSCULAR VOLUME (BEAKER) (test dsyd=418) 100.0 fL 79.0-92.2 MEAN CORPUSCULAR HEMOGLOBIN (BEAKER) (test 32.7 pg 25.7-32.2 bpwx=635) MEAN CORPUSCULAR HEMOGLOBIN CONC (BEAKER) (test 32.7 GM/DL 32.3-36.5 fulz=994) RED CELL DISTRIBUTION WIDTH (BEAKER) (test 14.6 % 11.6-14.4 chfk=582) PLATELET COUNT (BEAKER) (test jgvj=637) 314 K/CU MM 150-450 MEAN PLATELET VOLUME (BEAKER) (test ialc=678) 9.7 fL 9.4-12.4 NUCLEATED RED BLOOD CELLS (BEAKER) (test 0 /100 WBC 0-0 aycd=107) (CELLAVISION MANUAL DIFF)2017-09-13 11:51:00 Test Item Value Reference Range Comments NEUTROPHILS - REL (CELLAVISION)(BEAKER) (test 79 % mbng=0817) LYMPHOCYTES - REL (CELLAVISION)(BEAKER) (test 10 % ckta=5992) MONOCYTES - REL (CELLAVISION)(BEAKER) (test 9 % xuac=3059) EOSINOPHILS - REL (CELLAVISION)(BEAKER) (test 1 % wsat=6442) BASOPHILS - REL (CELLAVISION)(BEAKER) (test 1 % svlx=4510) NEUTROPHILS - ABS (CELLAVISION)(BEAKER) (test 7.90 K/ul 1.78-5.38 jgul=3061) LYMPHOCYTES - ABS (CELLAVISION)(BEAKER) (test 1.00 K/ul 1.32-3.57 xtzz=0589) MONOCYTES - ABS (CELLAVISION)(BEAKER) (test 0.90 K/uL 0.30-0.82 npub=4989) EOSINOPHILS - ABS (CELLAVISION)(BEAKER) (test 0.10 K/uL 0.04-0.54 jmcb=1152) BASOPHILS - ABS (CELLAVISION)(BEAKER) (test 0.10 K/uL 0.01-0.08 guts=7699) TOTAL COUNTED (BEAKER) (test lrlq=2233) 100 CLUMPED PLATELETS (BEAKER) (test mvwv=432) Present TOXIC GRANULATION (BEAKER) (test uwzz=424) Present ANISOCYTOSIS (BEAKER) (test zbcz=799) 1+ few MICROCYTES (BEAKER) (test wxdz=043) 1+ few POIKILOCYTES (BEAKER) (test mohz=823) 3+ many ARTIFACT (CELLAVISION)(BEAKER) (test bkho=7095) Present PLATELET CONCENTRATION (CELLAVISION)(BEAKER) (test Adequate yjhn=6955) Received comment: User comments: Slide comments:BLOOD [id number] 08:09:00 Test Item Value Reference Range Comments CULTURE (BEAKER) (test STAPHYLOCOCCUS AUREUS From Anaerobic Bottle qqxg=7103) Only Staphylococcus aureus Clindamycin (test code=10) Erythromycin (test code=4) Linezolid (test code=40) Nitrofurantoin (test code=23) Oxacillin (test code=14) Rifampin (test code=43) Tetracycline (test code=2) Trimethoprim + Sulfamethoxazole (test code=47) Vancomycin (test code=13) GRAM STAIN RESULT From anaerobic bottle (BEAKER) (test ymok=7861) only: gram positive cocci in clusters METHICILLIN-SUSCEPTIBLE STAPH. AUREUS (MSSA) DETECTEDStaphylococcus aureus DETECTED MecA NOT DETECTEDFirst line therapy: cefazolin or nafcillin (nafcillin preferred if Central Nervous System Infection)[facility] policy mandates Infectious Disease consultation for all patients withStaph. aureus bacteremia.Other organisms and resistance markers not contained in this PCR panel cannot be excluded and follow-up of traditional culture results is required. This sample was tested at the [facility] using the [employer] Blood Culture ID Panel. This test is FDA cleared for in vitro diagnostic use and has been verified and approved by the [facility] for clinical use. Reference Range: Not DetectedPOCT-GLUCOSE [id number] 07:49:00 Test Item Value Reference Range Comments POC-GLUCOSE METER (BEAKER) 87 mg/dL 70-[address] [facility] [address] (test yker=1627) [facility] [address] BLOOD [id number] 06:00:00 Test Item Value Reference Range Comments CULTURE (BEAKER) (test awjx=2068) No growth in 5 days HEPATIC FUNCTION [id number] 05:46:00 Test Item Value Reference Range Comments TOTAL PROTEIN (BEAKER) (test oqfw=601) 5.2 gm/dL 6.0-8.3 ALBUMIN (BEAKER) (test byjh=0857) 2.3 g/dL 3.5-5.0 BILIRUBIN TOTAL (BEAKER) (test uiph=952) 0.5 mg/dL 0.2-1.2 BILIRUBIN DIRECT (BEAKER) (test bvja=423) 0.4 mg/dL 0.1-0.5 ALKALINE PHOSPHATASE (BEAKER) (test ocws=830) 92 U/L 40-150 AST (SGOT) (BEAKER) (test uudd=723) 45 U/L 5-34 ALT (SGPT) (BEAKER) (test xsyk=218) 49 U/L 6-55 BASIC METABOLIC [id number] 05:46:00 Test Item Value Reference Range Comments SODIUM (BEAKER) (test 141 meq/L 136-145 mcck=112) POTASSIUM (BEAKER) (test 2.7 meq/L 3.5-5.1 ckcn=705) CHLORIDE (BEAKER) (test 109 meq/L 98-107 snlp=064) CO2 (BEAKER) (test 21 meq/L 22-29 jrqc=321) BLOOD UREA NITROGEN 6 mg/dL 7-21 (BEAKER) (test ptts=186) CREATININE (BEAKER) (test 0.78 mg/dL 0.57-1.25 gcfh=237) GLUCOSE RANDOM (BEAKER) 96 mg/dL 70-105 (test qduo=508) CALCIUM (BEAKER) (test 8.1 mg/dL 8.4-10.2 unrj=532) EGFR (BEAKER) (test 100 mL/min/1.73 sq m ESTIMATED GFR IS NOT fihx=7020) ACCURATE CREATININE CLEARANCE IN PREDICTING GLOMERULAR FILTRATION RATE. ESTIMATED GFR IS NOT APPLICABLE FOR DIALYSIS PATIENTS. POCT-GLUCOSE [id number] 20:29:00 Test Item Value Reference Range Comments POC-GLUCOSE METER (BEAKER) 199 mg/dL 70-[address] [facility] [address] [facility] (test fmuh=5040) [facility] [address] POCT-GLUCOSE [id number] 16:55:00 Test Item Value Reference Range Comments POC-GLUCOSE METER (BEAKER) 108 mg/dL 70-110 TESTED AT [address] (test utum=8256) [place] [address] POCT-GLUCOSE [id number] 11:59:00 Test Item Value Reference Range Comments POC-GLUCOSE METER (BEAKER) 117 mg/dL 70-110 TESTED AT [address] (test vofl=5640) [place] [address] POCT-GLUCOSE [id number] 10:36:00 Test Item Value Reference Range Comments POC-GLUCOSE METER (BEAKER) 107 mg/dL 70-110 TESTED AT [address] (test ehig=2427) [place] [address] CBC W/PLT COUNT & AUTO [id number] 07:32:00 Test Item Value Reference Range Comments WHITE BLOOD CELL COUNT (BEAKER) (test hypv=687) 10.6 K/ L 3.5-10.5 RED BLOOD CELL COUNT (BEAKER) (test iebw=610) 2.53 M/ L 4.63-6.08 HEMOGLOBIN (BEAKER) (test mflu=109) 8.3 GM/DL 13.7-17.5 HEMATOCRIT (BEAKER) (test fzfc=379) 24.4 % 40.1-51.0 MEAN CORPUSCULAR VOLUME (BEAKER) (test cvju=912) 96.4 fL 79.0-92.2 MEAN CORPUSCULAR HEMOGLOBIN (BEAKER) (test 32.8 pg 25.7-32.2 tper=019) MEAN CORPUSCULAR HEMOGLOBIN CONC (BEAKER) (test 34.0 GM/DL 32.3-36.5 qeoq=464) RED CELL DISTRIBUTION WIDTH (BEAKER) (test 14.2 % 11.6-14.4 zion=385) PLATELET COUNT (BEAKER) (test hdaz=198) 296 K/CU MM 150-450 MEAN PLATELET VOLUME (BEAKER) (test pzrh=274) 9.1 fL 9.4-12.4 NUCLEATED RED BLOOD CELLS (BEAKER) (test 0 /100 WBC 0-0 ipod=332) (CELLAVISION MANUAL DIFF)2017-09-12 07:32:00 Test Item Value Reference Range Comments NEUTROPHILS - REL (CELLAVISION)(BEAKER) (test 64 % kavl=4793) LYMPHOCYTES - REL (CELLAVISION)(BEAKER) (test 19 % refa=5748) MONOCYTES - REL (CELLAVISION)(BEAKER) (test 6 % rjet=3748) EOSINOPHILS - REL (CELLAVISION)(BEAKER) (test 5 % zqbc=9243) METAMYELOCYTES - REL (CELLAVISION)(BEAKER) (test 3 % 0-0 yfbg=6566) BANDS - REL (CELLAVISION)(BEAKER) (test pzej=5948) 1 % 0-10 ATYPICAL LYMPHOCYTES - REL (CELLAVISION)(BEAKER) 2 % 0-0 (test wshy=4418) NEUTROPHILS - ABS (CELLAVISION)(BEAKER) (test 6.78 K/ul 1.78-5.38 owhs=9033) LYMPHOCYTES - ABS (CELLAVISION)(BEAKER) (test 2.01 K/ul 1.32-3.57 istw=7536) MONOCYTES - ABS (CELLAVISION)(BEAKER) (test 0.64 K/uL 0.30-0.82 xazv=5971) EOSINOPHILS - ABS (CELLAVISION)(BEAKER) (test 0.53 K/uL 0.04-0.54 qcew=6329) METAMYELOCYTES - ABS (CELLAVISION)(BEAKER) (test 0.32 K/uL 0.00-0.00 gxhz=3109) BANDS - ABS (CELLAVISION)(BEAKER) (test ejdo=1421) 0.11 K/uL 0.00-0.80 ATYPICAL LYMPHOCYTES - ABS (CELLAVISION)(BEAKER) 0.21 K/uL 0.00-0.00 (test orpa=5135) TOTAL COUNTED (BEAKER) (test udci=8251) 100 RBC MORPHOLOGY (BEAKER) (test aujo=332) Normal SMUDGE CELLS (BEAKER) (test deyg=5431) Present GIANT PLATELETS (BEAKER) (test anbn=659) Present TOXIC GRANULATION (BEAKER) (test pzbq=399) Present PLATELET CONCENTRATION (CELLAVISION)(BEAKER) (test Adequate ipli=4804) Received comment: User comments: Slide comments:BASIC METABOLIC [id number] 06:03:00 Test Item Value Reference Range Comments SODIUM (BEAKER) (test 143 meq/L 136-145 iana=378) POTASSIUM (BEAKER) (test 3.1 meq/L 3.5-5.1 nxdj=316) CHLORIDE (BEAKER) (test 111 meq/L 98-107 ywho=433) CO2 (BEAKER) (test 23 meq/L 22-29 ybtv=000) BLOOD UREA NITROGEN 8 mg/dL 7-21 (BEAKER) (test becw=258) CREATININE (BEAKER) (test 0.73 mg/dL 0.57-1.25 uyjo=671) GLUCOSE RANDOM (BEAKER) 105 mg/dL 70-105 (test jzuz=162) CALCIUM (BEAKER) (test 8.4 mg/dL 8.4-10.2 xpfx=248) EGFR (BEAKER) (test 108 mL/min/1.73 sq m ESTIMATED GFR IS NOT yzki=5770) ACCURATE CREATININE CLEARANCE IN PREDICTING GLOMERULAR FILTRATION RATE. ESTIMATED GFR IS NOT APPLICABLE FOR DIALYSIS PATIENTS. POCT-GLUCOSE [id number] 21:13:00 Test Item Value Reference Range Comments POC-GLUCOSE METER (BEAKER) 135 mg/dL 70-110 TESTED AT [address] (test vkjb=4876) [place] [address] POCT-GLUCOSE [id number] 17:15:00 Test Item Value Reference Range Comments POC-GLUCOSE METER (BEAKER) 108 mg/dL 70-110 TESTED AT [address] (test fslx=2228) [place] [address] [id number] 15:10:00 Test Item Value Reference Range Comments POTASSIUM (BEAKER) (test cjjb=063) 3.0 meq/L 3.5-5.1 POCT-GLUCOSE [id number] 11:13:00 Test Item Value Reference Range Comments POC-GLUCOSE METER (BEAKER) 111 mg/dL 70-110 TESTED AT [address] (test sajx=4030) [place] [address] SPUTUM CULTURE + GRAM [id number] 09:20:00 Test Item Value Reference Range Comments CULTURE (BEAKER) (test 2+ Normal respiratory alex rjhl=8418) present GRAM STAIN RESULT (BEAKER) 2+ WBCs (test bjdw=3165) GRAM STAIN RESULT (BEAKER) 0-5 epithelial cells (test bbyt=27009) GRAM STAIN RESULT (BEAKER) 1+ gram positive rods (test kkpc=81953) GRAM STAIN RESULT (BEAKER) <1+ yeast (test clqw=172480) CBC W/PLT COUNT & AUTO [id number] 08:26:00 Test Item Value Reference Range Comments WHITE BLOOD CELL COUNT (BEAKER) (test hohp=280) 9.8 K/ L 3.5-10.5 RED BLOOD CELL COUNT (BEAKER) (test reca=800) 2.56 M/ L 4.63-6.08 HEMOGLOBIN (BEAKER) (test hmnw=223) 8.4 GM/DL 13.7-17.5 HEMATOCRIT (BEAKER) (test eyyw=045) 23.8 % 40.1-51.0 MEAN CORPUSCULAR VOLUME (BEAKER) (test elxj=262) 93.0 fL 79.0-92.2 MEAN CORPUSCULAR HEMOGLOBIN (BEAKER) (test 32.8 pg 25.7-32.2 vhox=907) MEAN CORPUSCULAR HEMOGLOBIN CONC (BEAKER) (test 35.3 GM/DL 32.3-36.5 aqva=283) RED CELL DISTRIBUTION WIDTH (BEAKER) (test 13.7 % 11.6-14.4 famf=874) PLATELET COUNT (BEAKER) (test gnoj=446) 263 K/CU MM 150-450 MEAN PLATELET VOLUME (BEAKER) (test ylvt=065) 9.1 fL 9.4-12.4 NUCLEATED RED BLOOD CELLS (BEAKER) (test 0 /100 WBC 0-0 ycpc=137) (CELLAVISION MANUAL DIFF)2017-09-11 08:26:00 Test Item Value Reference Range Comments NEUTROPHILS - REL (CELLAVISION)(BEAKER) (test 64 % qnbw=9187) LYMPHOCYTES - REL (CELLAVISION)(BEAKER) (test 12 % wwyn=1446) MONOCYTES - REL (CELLAVISION)(BEAKER) (test 8 % tmit=8122) EOSINOPHILS - REL (CELLAVISION)(BEAKER) (test 5 % owqm=8701) METAMYELOCYTES - REL (CELLAVISION)(BEAKER) (test 1 % 0-0 zkzm=7467) BANDS - REL (CELLAVISION)(BEAKER) (test iluy=3397) 10 % 0-10 NEUTROPHILS - ABS (CELLAVISION)(BEAKER) (test 6.27 K/ul 1.78-5.38 dznx=1540) LYMPHOCYTES - ABS (CELLAVISION)(BEAKER) (test 1.18 K/ul 1.32-3.57 eajh=5195) MONOCYTES - ABS (CELLAVISION)(BEAKER) (test 0.78 K/uL 0.30-0.82 eqoa=9435) EOSINOPHILS - ABS (CELLAVISION)(BEAKER) (test 0.49 K/uL 0.04-0.54 lmne=7287) METAMYELOCYTES - ABS (CELLAVISION)(BEAKER) (test 0.10 K/uL 0.00-0.00 cpin=8516) BANDS - ABS (CELLAVISION)(BEAKER) (test xife=8377) 0.98 K/uL 0.00-0.80 TOTAL COUNTED (BEAKER) (test bgps=2600) 100 WBC MORPHOLOGY (BEAKER) (test zwfn=420) Normal PLT MORPHOLOGY (BEAKER) (test fjdy=473) Normal POLYCHROMATOPHILLIC RBCS(BEAKER) (test txlv=121) 1+ few ANISOCYTOSIS (BEAKER) (test qxao=306) 1+ few ARTIFACT (CELLAVISION)(BEAKER) (test ljim=2001) Present PLATELET CONCENTRATION (CELLAVISION)(BEAKER) (test Adequate wqtp=8375) Received comment: User comments: Slide comments:BASIC METABOLIC [id number] 04:33:00 Test Item Value Reference Range Comments SODIUM (BEAKER) (test 141 meq/L 136-145 ltqy=907) POTASSIUM (BEAKER) (test 3.1 meq/L 3.5-5.1 bias=064) CHLORIDE (BEAKER) (test 111 meq/L 98-107 gfzg=084) CO2 (BEAKER) (test 21 meq/L 22-29 zmlk=627) BLOOD UREA NITROGEN 7 mg/dL 7-21 (BEAKER) (test pgoo=780) CREATININE (BEAKER) (test 0.68 mg/dL 0.57-1.25 sthw=546) GLUCOSE RANDOM (BEAKER) 103 mg/dL 70-105 (test ziyd=206) CALCIUM (BEAKER) (test 8.3 mg/dL 8.4-10.2 hbyl=843) EGFR (BEAKER) (test 117 mL/min/1.73 sq m ESTIMATED GFR IS NOT bzbq=8641) ACCURATE CREATININE CLEARANCE IN PREDICTING GLOMERULAR FILTRATION RATE. ESTIMATED GFR IS NOT APPLICABLE FOR DIALYSIS PATIENTS. POCT-GLUCOSE [id number] 22:46:00 Test Item Value Reference Range Comments POC-GLUCOSE METER (BEAKER) 109 mg/dL 70-110 TESTED AT [address] (test fhdx=1076) [place] [address] [id number] 18:49:00 Test Item Value Reference Range Comments POTASSIUM (BEAKER) (test 3.6 meq/L 3.5-5.1 Specimen slightly hemolyzed gecc=382) 8 hours after PO replacement completedPOCT-GLUCOSE [id number] 17:32:00 Test Item Value Reference Range Comments POC-GLUCOSE METER (BEAKER) 121 mg/dL 70-110 TESTED AT [address] (test rtsa=4111) [place] [address] VANCOMYCIN LEVEL, [id number] 13:14:00 Test Item Value Reference Range Comments VANCOMYCIN TROUGH (BEAKER) (test lrzz=450) 5.2 ug/mL 10.0-20.0 Draw immediately prior to next vancomycin dose.[id number] 13:05:00 Test Item Value Reference Range Comments POTASSIUM (BEAKER) (test nztf=177) 3.2 meq/L 3.5-5.1 [id number] 13:05:00 Test Item Value Reference Range Comments SODIUM (BEAKER) (test mlal=051) 137 meq/L 136-145 POCT-GLUCOSE [id number] 10:33:00 Test Item Value Reference Range Comments POC-GLUCOSE METER (BEAKER) 105 mg/dL 70-110 TESTED AT [address] (test mwwz=0415) [place] [address] SURGICALLY OBTAINED CULTURE + GRAM [id number] 10:27:00 Test Item Value Reference Range Comments CULTURE (BEAKER) 4+ Same organism has been (test jerg=3032) isolated from cultures(s) of the same body site and collection date. Repeat identification and susceptibility testing performed only after consultation with the clinical microbiology laboratory.Refer to previous culture ofStaphylococcus aureus GRAM STAIN RESULT 4+ WBCs (BEAKER) (test tbfu=5169) GRAM STAIN RESULT 4+ gram positive (BEAKER) (test cocci in clusters wzyu=690524) SURGICALLY OBTAINED CULTURE + GRAM [id number] 10:24:00 Test Item Value Reference Range Comments CULTURE (BEAKER) (test STAPHYLOCOCCUS AUREUS 4+ Staphylococcus vwak=5695) aureus Clindamycin (test code=10) Erythromycin (test code=4) Linezolid (test code=40) Nitrofurantoin (test code=23) Oxacillin (test code=14) Rifampin (test code=43) Tetracycline (test code=2) Trimethoprim + Sulfamethoxazole (test code=47) Vancomycin (test code=13) GRAM STAIN RESULT 2+ WBCs (BEAKER) (test dvun=6386) GRAM STAIN RESULT 3+ gram positive cocci (BEAKER) (test in clusters ueqn=819430) WOUND CULTURE + GRAM [id number] 09:53:00 Test Item Value Reference Range Comments CULTURE (BEAKER) 4+ Same organism has been (test pclx=6328) isolated from culture(s) of the same body site and collection date. Repeat identification performed only after consultation with the clinical microbiology laboratory.Refer to previous culture ofStaphylococcus aureus GRAM STAIN RESULT 1+ WBCs (BEAKER) (test abny=1549) GRAM STAIN RESULT 2+ gram positive (BEAKER) (test cocci in pairs nkzz=595106) GRAM STAIN RESULT 2+ gram positive (BEAKER) (test cocci in clusters rmzr=596576) BASIC METABOLIC [id number] 05:12:00 Test Item Value Reference Range Comments SODIUM (BEAKER) (test 134 meq/L 136-145 yzps=441) POTASSIUM (BEAKER) (test 3.0 meq/L 3.5-5.1 tmge=026) CHLORIDE (BEAKER) (test 106 meq/L 98-107 abgj=533) CO2 (BEAKER) (test 21 meq/L 22-29 orkg=525) BLOOD UREA NITROGEN 4 mg/dL 7-21 (BEAKER) (test quzn=873) CREATININE (BEAKER) (test 0.52 mg/dL 0.57-1.25 vtbz=365) GLUCOSE RANDOM (BEAKER) 96 mg/dL 70-105 (test ezca=161) CALCIUM (BEAKER) (test 7.8 mg/dL 8.4-10.2 mlou=346) EGFR (BEAKER) (test 160 mL/min/1.73 sq m ESTIMATED GFR IS NOT wspo=4873) ACCURATE CREATININE CLEARANCE IN PREDICTING GLOMERULAR FILTRATION RATE. ESTIMATED GFR IS NOT APPLICABLE FOR DIALYSIS PATIENTS. CBC W/PLT COUNT & AUTO [id number] 04:20:00 Test Item Value Reference Range Comments WHITE BLOOD CELL COUNT (BEAKER) (test sheb=770) 10.1 K/ L 3.5-10.5 RED BLOOD CELL COUNT (BEAKER) (test qwbb=140) 2.45 M/ L 4.63-6.08 HEMOGLOBIN (BEAKER) (test dhox=430) 8.0 GM/DL 13.7-17.5 HEMATOCRIT (BEAKER) (test jdzv=765) 22.9 % 40.1-51.0 MEAN CORPUSCULAR VOLUME (BEAKER) (test hoxj=605) 93.5 fL 79.0-92.2 MEAN CORPUSCULAR HEMOGLOBIN (BEAKER) (test 32.7 pg 25.7-32.2 zugv=029) MEAN CORPUSCULAR HEMOGLOBIN CONC (BEAKER) (test 34.9 GM/DL 32.3-36.5 ssxo=716) RED CELL DISTRIBUTION WIDTH (BEAKER) (test 13.6 % 11.6-14.4 jkyn=320) PLATELET COUNT (BEAKER) (test nldp=774) 202 K/CU MM 150-450 MEAN PLATELET VOLUME (BEAKER) (test pclp=178) 9.5 fL 9.4-12.4 NUCLEATED RED BLOOD CELLS (BEAKER) (test 0 /100 WBC 0-0 ypyq=147) NEUTROPHILS RELATIVE PERCENT (BEAKER) (test 75 % clyh=617) LYMPHOCYTES RELATIVE PERCENT (BEAKER) (test 12 % lddm=941) MONOCYTES RELATIVE PERCENT (BEAKER) (test 8 % ymnr=340) EOSINOPHILS RELATIVE PERCENT (BEAKER) (test 3 % jedb=444) BASOPHILS RELATIVE PERCENT (BEAKER) (test 0 % rrub=971) NEUTROPHILS ABSOLUTE COUNT (BEAKER) (test 7.63 K/ L 1.78-5.38 hhzm=199) LYMPHOCYTES ABSOLUTE COUNT (BEAKER) (test 1.17 K/ L 1.32-3.57 xgqh=937) MONOCYTES ABSOLUTE COUNT (BEAKER) (test 0.79 K/ L 0.30-0.82 zcay=011) EOSINOPHILS ABSOLUTE COUNT (BEAKER) (test 0.30 K/ L 0.04-0.54 kvhr=072) BASOPHILS ABSOLUTE COUNT (BEAKER) (test 0.03 K/ L 0.01-0.08 psaj=109) IMMATURE GRANULOCYTES-RELATIVE PERCENT (BEAKER) 2 % 0-1 (test kqyk=8738) POCT-GLUCOSE [id number] 22:15:00 Test Item Value Reference Range Comments POC-GLUCOSE METER (BEAKER) 107 mg/dL 70-110 TESTED AT [address] (test hqmh=2515) [place] [address] HEMOGLOBIN AND [id number] 21:42:00 Test Item Value Reference Range Comments HEMOGLOBIN (BEAKER) (test fkjf=597) 8.2 GM/DL 13.7-17.5 HEMATOCRIT (BEAKER) (test ycjb=231) 24.0 % 40.1-51.0 [id number] 17:33:00 Test Item Value Reference Range Comments SODIUM (BEAKER) (test iipx=814) 134 meq/L 136-145 POCT-GLUCOSE [id number] 17:25:00 Test Item Value Reference Range Comments POC-GLUCOSE METER (BEAKER) 131 mg/dL 70-110 TESTED AT [address] (test uzes=0534) [place] [address] POCT-GLUCOSE [id number] 12:33:00 Test Item Value Reference Range Comments POC-GLUCOSE METER (BEAKER) 130 mg/dL 70-110 TESTED AT [address] (test amob=1574) [place] [address] HEMOGLOBIN AND [id number] 09:26:00 Test Item Value Reference Range Comments HEMOGLOBIN (BEAKER) (test mvno=575) 8.6 GM/DL 13.7-17.5 HEMATOCRIT (BEAKER) (test chrt=637) 25.1 % 40.1-51.0 POCT-GLUCOSE [id number] 09:16:00 Test Item Value Reference Range Comments POC-GLUCOSE METER (BEAKER) 112 mg/dL 70-[address] [facility] [address] (test ghcc=3525) [facility] [address] RAD, CHEST, 1 VIEW, NON [id number] 08:35:00Reason for exam:->coughShould this be performed at the bedside?->YesFINAL REPORT CLINICAL HISTORY: cough TECHNIQUE: 1 view of the chest. COMPARISON: Chest CT IMPRESSION: There is left lung base opacity compatible with the known cavitary mass seen on the earlier chest CT. There is a small left effusion. The right lung is free of infiltrates or effusions. The cardiomediastinal silhouette is magnified by technique. Signed: Aleks CastañedaMDReport Verified Date/Time: 09/09/2017 08:35:23 Reading Location: [address] Neuro Reading Room BASIC METABOLIC [id number] 05:25:00 Test Item Value Reference Range Comments SODIUM (BEAKER) (test 131 meq/L 136-145 hewb=745) POTASSIUM (BEAKER) (test 3.2 meq/L 3.5-5.1 ggoz=963) CHLORIDE (BEAKER) (test 105 meq/L 98-107 hssi=924) CO2 (BEAKER) (test 18 meq/L 22-29 avej=606) BLOOD UREA NITROGEN 6 mg/dL 7-21 (BEAKER) (test piur=932) CREATININE (BEAKER) (test 0.58 mg/dL 0.57-1.25 zlxd=956) GLUCOSE RANDOM (BEAKER) 128 mg/dL 70-105 (test bpjb=044) CALCIUM (BEAKER) (test 7.8 mg/dL 8.4-10.2 tvao=671) EGFR (BEAKER) (test 141 mL/min/1.73 sq m ESTIMATED GFR IS NOT hitw=4920) ACCURATE CREATININE CLEARANCE IN PREDICTING GLOMERULAR FILTRATION RATE. ESTIMATED GFR IS NOT APPLICABLE FOR DIALYSIS PATIENTS. CBC W/PLT COUNT & AUTO [id number] 05:06:00 Test Item Value Reference Range Comments WHITE BLOOD CELL COUNT (BEAKER) 12.2 K/ L 3.5-10.5 (test hase=765) RED BLOOD CELL COUNT (BEAKER) 2.79 M/ L 4.63-6.08 (test sgic=919) HEMOGLOBIN (BEAKER) (test 8.9 GM/DL 13.7-17.5 VERIFIED BY CLINICAL kklw=937) HISTORY. POST SURGERY PER @ 265920 HEMATOCRIT (BEAKER) (test 26.4 % 40.1-51.0 zoep=696) MEAN CORPUSCULAR VOLUME 94.6 fL 79.0-92.2 (BEAKER) (test sufy=618) MEAN CORPUSCULAR HEMOGLOBIN 31.9 pg 25.7-32.2 (BEAKER) (test idta=265) MEAN CORPUSCULAR HEMOGLOBIN 33.7 GM/DL 32.3-36.5 CONC (BEAKER) (test mcoe=259) RED CELL DISTRIBUTION WIDTH 13.7 % 11.6-14.4 (BEAKER) (test mmer=888) PLATELET COUNT (BEAKER) (test 190 K/CU MM 150-450 zrdi=690) MEAN PLATELET VOLUME (BEAKER) 9.5 fL 9.4-12.4 (test xsxw=380) NUCLEATED RED BLOOD CELLS 0 /100 WBC 0-0 (BEAKER) (test hbhf=545) NEUTROPHILS RELATIVE PERCENT 77 % (BEAKER) (test ueyk=055) LYMPHOCYTES RELATIVE PERCENT 10 % (BEAKER) (test ghin=255) MONOCYTES RELATIVE PERCENT 7 % (BEAKER) (test fqeb=972) EOSINOPHILS RELATIVE PERCENT 3 % (BEAKER) (test qwdn=715) BASOPHILS RELATIVE PERCENT 0 % (BEAKER) (test qtlg=144) NEUTROPHILS ABSOLUTE COUNT 9.47 K/ L 1.78-5.38 (BEAKER) (test nflo=247) LYMPHOCYTES ABSOLUTE COUNT 1.26 K/ L 1.32-3.57 (BEAKER) (test pvjd=779) MONOCYTES ABSOLUTE COUNT 0.90 K/ L 0.30-0.82 (BEAKER) (test yoyc=952) EOSINOPHILS ABSOLUTE COUNT 0.39 K/ L 0.04-0.54 (BEAKER) (test jhoo=891) BASOPHILS ABSOLUTE COUNT 0.02 K/ L 0.01-0.08 (BEAKER) (test lljs=803) IMMATURE GRANULOCYTES-RELATIVE 2 % 0-1 PERCENT (BEAKER) (test rsmi=6506) POCT-GLUCOSE [id number] 18:28:00 Test Item Value Reference Range Comments POC-GLUCOSE METER (BEAKER) 190 mg/dL 70-110 TESTED AT [address] (test idaq=6922) [place] [id number] POCT-GLUCOSE [id number] 14:18:00 Test Item Value Reference Range Comments POC-GLUCOSE METER (BEAKER) 258 mg/dL 70-110 TESTED AT [address] (test awvw=1099) [place] [address] URINALYSIS W/ REFLEX URINE [id number] 09:37:00 Test Item Value Reference Range Comments COLOR (BEAKER) (test kleq=492) Yellow CLARITY (BEAKER) (test nbqi=603) Clear SPECIFIC GRAVITY UA (BEAKER) (test mmkn=422) 1.016 1.001-1.035 PH UA (BEAKER) (test oaax=226) 5.5 5.0-8.0 PROTEIN UA (BEAKER) (test ggug=645) 20 mg/dL Negative GLUCOSE UA (BEAKER) (test htfl=637) Negative Negative KETONES UA (BEAKER) (test iggc=762) Negative Negative BILIRUBIN UA (BEAKER) (test mamz=393) Negative Negative BLOOD UA (BEAKER) (test bnfq=283) Small Negative NITRITE UA (BEAKER) (test ntuk=095) Negative Negative LEUKOCYTE ESTERASE UA (BEAKER) (test gwbz=961) Negative Negative UROBILINOGEN UA (BEAKER) (test pcxz=228) 4.0 mg/dL 0.2-1.0 RBC UA (BEAKER) (test akza=246) 20 /HPF WBC UA (BEAKER) (test gddj=680) 5 /HPF BACTERIA (BEAKER) (test rczy=641) Rare MUCUS (BEAKER) (test bebm=2135) Few SQUAMOUS EPITHELIAL (BEAKER) (test ghrw=312) 5 /HPF SOURCE(BEAKER) (test toqr=2526) C-REACTIVE [id number] 06:38:00 Test Item Value Reference Range Comments C-REACTIVE PROTEIN (BEAKER) (test jige=673) 25.73 mg/dL 0.00-0.50 MR, BRAIN, [id number] 05:24:00FINAL REPORT Exam: MRI brain with and without contrast Comparison: Brain MRI08/16/2017. Reason for exam : subdural empyema Discussion: Multiplanar MR imaging of the brain was provided vaw-smj-uzyc IV gadolinium administration using T1, T2, FLAIR, [...] in the interval and suspicious for metastases (image21). There is a 10 x 9 mm enhancing metastatic lesion in the right precentral gyrus with surroundingedema, (previously measured 9 x 7 mm a comparable level on the prior exam). There is a left frontal convexity subdural collection measuring 12 mm in thickness with mild enhancement and restricted diffusion compatible with an empyema. There is mild associated parenchymal mass effect, with a hwwj-fj-jwmhs midline shift measuring 4 mm at the [...] dural sinuses. The pineal, sella, and craniocervical junctionregions are within normal limits. There is a deformity of the right lamina papyracea which may be due to remote trauma. The orbits are otherwise unremarkable. There is mild paranasal sinus mucosal thickening. The mastoid air cells are clear. There is a left parietal subgaleal fluid collection adjacentto the craniotomy site measuring 6.8 x 1.6 x 1.3 cm. Impressions:Status post left parietal craniotomy. Mildly increased peripheral nodular enhancement along the surgical cavity, suspicious for worsening residual tumor. New 5 mm enhancing nodule in the left centrum semiovale suspicious for metastases.10 x 9 mm right precentral gyrus metastatic lesion, mildly increased in the interval. Mild diffuse subarachnoid enhancement in the high left frontal lobe may be reactive, infectious or metastatic in etiology. Attention to follow up is recommended. Small left frontal subdural collection with mild enhancement and restricted diffusion compatible with an empyema. Associated parenchymal mass effect and hkoj-xi-nlift midline shift. 6.8 x 1.6 x 1.3 cm left parietal subgaleal fluid collection adjacent to the craniotomy site ; infection cannot be entirely excluded. Signed: Reynaldo Richards MDReport Verified Date/Time: 09/08/2017 05:24:35 Reading Location: [facility] B1 C013Y CT Body Reading Room Electronically signed by: REYNALDO RICHARDS MD on 2017 05:24 AM(CELLAVISION MANUAL DIFF)2017-09-08 03:55:00 Test Item Value Reference Range Comments NEUTROPHILS - REL (CELLAVISION)(BEAKER) (test 60 % mvap=7208) LYMPHOCYTES - REL (CELLAVISION)(BEAKER) (test 13 % uiam=0050) MONOCYTES - REL (CELLAVISION)(BEAKER) (test 10 % fokx=7290) PROMYELOCYTES - REL (CELLAVSION)(BEAKER) (test 2 % 0-0 zgoc=7152) BANDS - REL (CELLAVISION)(BEAKER) (test glml=8256) 14 % 0-10 NEUTROPHILS - ABS (CELLAVISION)(BEAKER) (test 8.22 K/ul 1.78-5.38 zvxm=6419) LYMPHOCYTES - ABS (CELLAVISION)(BEAKER) (test 1.78 K/ul 1.32-3.57 lhfn=8087) MONOCYTES - ABS (CELLAVISION)(BEAKER) (test 1.37 K/uL 0.30-0.82 qdng=1200) PROMYELOCYTES - ABS (CELLAVISION)(BEAKER) (test 0.27 K/uL 0.00-0.00 wesp=4926) BANDS - ABS (CELLAVISION)(BEAKER) (test ncpg=2356) 1.92 K/uL 0.00-0.80 TOTAL COUNTED (BEAKER) (test fcle=4677) 100 PLT MORPHOLOGY (BEAKER) (test wjoe=688) Normal TOXIC GRANULATION (BEAKER) (test ipkm=529) Present VACUOLATED NEUTROPHILS (BEAKER) (test agzp=616) Present ANISOCYTOSIS (BEAKER) (test etnr=550) 1+ few MICROCYTES (BEAKER) (test nlbt=228) 1+ few POIKILOCYTES (BEAKER) (test scii=422) 1+ few ARTIFACT (CELLAVISION)(BEAKER) (test kvwl=0622) Present PLATELET CONCENTRATION (CELLAVISION)(BEAKER) (test Adequate itif=2206) Received comment: User comments: Slide comments:CBC W/PLT COUNT & AUTO [id number] 03:54:00 Test Item Value Reference Range Comments WHITE BLOOD CELL COUNT (BEAKER) (test pbrn=555) 13.7 K/ L 3.5-10.5 RED BLOOD CELL COUNT (BEAKER) (test ohij=360) 3.72 M/ L 4.63-6.08 HEMOGLOBIN (BEAKER) (test szmo=773) 12.3 GM/DL 13.7-17.5 HEMATOCRIT (BEAKER) (test dsoc=974) 34.8 % 40.1-51.0 MEAN CORPUSCULAR VOLUME (BEAKER) (test hvhy=390) 93.5 fL 79.0-92.2 MEAN CORPUSCULAR HEMOGLOBIN (BEAKER) (test 33.1 pg 25.7-32.2 aqdk=950) MEAN CORPUSCULAR HEMOGLOBIN CONC (BEAKER) (test 35.3 GM/DL 32.3-36.5 atpm=042) RED CELL DISTRIBUTION WIDTH (BEAKER) (test 13.7 % 11.6-14.4 mvaz=734) PLATELET COUNT (BEAKER) (test fwsi=251) 201 K/CU MM 150-450 MEAN PLATELET VOLUME (BEAKER) (test babx=130) 9.1 fL 9.4-12.4 NUCLEATED RED BLOOD CELLS (BEAKER) (test 0 /100 WBC 0-0 pype=901) [id number] 03:44:00 Test Item Value Reference Range Comments PHOSPHORUS (BEAKER) (test sbld=520) 2.4 mg/dL 2.3-4.7 [id number] 03:44:00 Test Item Value Reference Range Comments MAGNESIUM (BEAKER) (test bqml=423) 2.0 mg/dL 1.6-2.6 BASIC METABOLIC [id number] 03:44:00 Test Item Value Reference Range Comments SODIUM (BEAKER) (test 132 meq/L 136-145 llri=707) POTASSIUM (BEAKER) (test 3.5 meq/L 3.5-5.1 tjca=722) CHLORIDE (BEAKER) (test 106 meq/L 98-107 bixw=327) CO2 (BEAKER) (test 18 meq/L 22-29 xdph=154) BLOOD UREA NITROGEN 9 mg/dL 7-21 (BEAKER) (test vxpp=878) CREATININE (BEAKER) (test 0.62 mg/dL 0.57-1.25 mttx=250) GLUCOSE RANDOM (BEAKER) 118 mg/dL 70-105 (test djiq=650) CALCIUM (BEAKER) (test 8.5 mg/dL 8.4-10.2 yvhz=863) EGFR (BEAKER) (test 131 mL/min/1.73 sq m ESTIMATED GFR IS NOT uaqm=0988) ACCURATE CREATININE CLEARANCE IN PREDICTING GLOMERULAR FILTRATION RATE. ESTIMATED GFR IS NOT APPLICABLE FOR DIALYSIS PATIENTS. [id number] 03:09:00 Test Item Value Reference Range Comments PARTIAL THROMBOPLASTIN TIME (BEAKER) (test 40.3 seconds 22.5-36.0 lrwp=541) PROTHROMBIN TIME/[id number] 03:08:00 Test Item Value Reference Range Comments PROTIME (BEAKER) (test wuam=790) 15.4 seconds 11.7-14.7 INR (BEAKER) (test kzfb=104) 1.2 <=5.9 RECOMMENDED COUMADIN/WARFARIN INR THERAPY RANGESSTANDARD DOSE: 2.0 - 3.0 Includes: PROPHYLAXIS forvenous thrombosis, systemic embolization; TREATMENT for venous thrombosis and/or pulmonary embolus.HIGH RISK: Target INR is 2.5-3.5 for patients with mechanical heart valves.TISSUE [id number] 15:29: 00Surgical Pathology Report Case: [id number] Authorizing Provider: Ralf House MD Collected : 08/15/2017 1016 Ordering Location: [facility] Received: 08/15/2017 1023 SERVICES Pathologist: Jericho Villanueva MD Specimens: A) - Brain, Left, LEFT FRONTAL MASS B) -Brain, Left, LEFT FRONTAL BRAIN MASS A. BRAIN, LEFT FRONTAL, CRANIOTOMY:METASTATIC POORLY DIFFERENTIATED CARCINOMA (SEE COMMENT)B BRAIN, LEFT FRONTAL, CRANIOTOMY:METASTATIC POORLY DIFFERENTIATED CARCINOMA (SEE COMMENT) Signing Pathologist Direct Phone Line: [phone] signed by Jericho Villanueva MD on 08/24/2017 at 3:29 PMThe tumor is poorly differentiated, highly anaplastic, attached to dura, and has some mucin production, as confirmed with mucicarmine stains. This confirms adenomatous differentiation. Additionally, some keratin production is focally suggested with immunopositivity of many tumor cells for CK 5/6, consistent with squamous differentiation. Tumor cells are also diffusely positive for cytokeratin 7 and Napsin-A in tumor cell cytoplasm. TTF-1 stains tumor cells diffusely and strongly positive within their nuclei. Immunoperoxidase stains for cytokeratin 20 and p63 are negative in tumor. 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 A small cell component is not present. Additionally, the immunoprofile is most consistent with a lung primary.[id number]; 25316; 16417; 17292; [id number], brain left frontal mass; B. Brain tumor left frontal massThe specimen is received in two parts labeled with the patient's information which corresponds to requisition slips with the same name and number. Part A: .Received fresh for intraoperative consultation [...] x 0.2 cm membranous brain tissue. The specimen is inked and serially sectioned and submitted entirely in cassettes B1 through B6. MA/plBRAIN, FRONTAL, LEFT, CRANIOTOMY: - TOUCH PREP: METASTATIC CARCINOMA - FROZEN SECTION 1: METASTATIC POORLY DIFFERENTIATED CARCINOMAReported by Dr. Moy. Performed on A and BPOCT -GLUCOSE [id number] 16:46:00 Test Item Value Reference Range Comments POC-GLUCOSE METER (BEAKER) 92 mg/dL 70-[address] [facility] [address] [facility] (test qlei=4827) [facility] [address] POCT-GLUCOSE [id number] 11:50:00 Test Item Value Reference Range Comments POC-GLUCOSE METER (BEAKER) 87 mg/dL 70-110 TESTED AT [address] (test fbld=6331) [facility] [address] CBC W/PLT COUNT & AUTO [id number] 11:36:00 Test Item Value Reference Range Comments WHITE BLOOD CELL COUNT (BEAKER) (test thgv=395) 14.0 K/ L 3.5-10.5 RED BLOOD CELL COUNT (BEAKER) (test sskw=689) 4.72 M/ L 4.63-6.08 HEMOGLOBIN (BEAKER) (test flkm=252) 15.2 GM/DL 13.7-17.5 HEMATOCRIT (BEAKER) (test jufs=967) 45.0 % 40.1-51.0 MEAN CORPUSCULAR VOLUME (BEAKER) (test huui=196) 95.3 fL 79.0-92.2 MEAN CORPUSCULAR HEMOGLOBIN (BEAKER) (test 32.2 pg 25.7-32.2 kixg=178) MEAN CORPUSCULAR HEMOGLOBIN CONC (BEAKER) (test 33.8 GM/DL 32.3-36.5 ssch=092) RED CELL DISTRIBUTION WIDTH (BEAKER) (test 13.6 % 11.6-14.4 zbyx=292) PLATELET COUNT (BEAKER) (test msuc=409) 212 K/CU MM 150-450 MEAN PLATELET VOLUME (BEAKER) (test kllv=478) 10.5 fL 9.4-12.4 NUCLEATED RED BLOOD CELLS (BEAKER) (test 0 /100 WBC 0-0 wjlv=161) (CELLAVISION MANUAL DIFF)2017-08-20 11:36:00 Test Item Value Reference Range Comments NEUTROPHILS - REL (CELLAVISION)(BEAKER) (test 77 % gncd=0513) LYMPHOCYTES - REL (CELLAVISION)(BEAKER) (test 7 % xjbc=3653) MONOCYTES - REL (CELLAVISION)(BEAKER) (test 15 % bkfv=5129) EOSINOPHILS - REL (CELLAVISION)(BEAKER) (test 1 % ygbd=3429) NEUTROPHILS - ABS (CELLAVISION)(BEAKER) (test 10.78 K/ul 1.78-5.38 asnh=3910) LYMPHOCYTES - ABS (CELLAVISION)(BEAKER) (test 0.98 K/ul 1.32-3.57 euyh=9252) MONOCYTES - ABS (CELLAVISION)(BEAKER) (test 2.10 K/uL 0.30-0.82 vbfh=4145) EOSINOPHILS - ABS (CELLAVISION)(BEAKER) (test 0.14 K/uL 0.04-0.54 rmki=8131) TOTAL COUNTED (BEAKER) (test bbam=0044) 100 WBC MORPHOLOGY (BEAKER) (test yrtv=068) Normal PLT MORPHOLOGY (BEAKER) (test hrje=361) Normal POLYCHROMATOPHILLIC RBCS(BEAKER) (test gwfx=105) 1+ few ANISOCYTOSIS (BEAKER) (test jeyu=113) 1+ few ARTIFACT (CELLAVISION)(BEAKER) (test osdv=6086) Present PLATELET CONCENTRATION (CELLAVISION)(BEAKER) Adequate (test mgbs=6356) Received comment: User comments: Slide comments:POCT-GLUCOSE [id number] 08: 06:00 Test Item Value Reference Range Comments POC-GLUCOSE METER (BEAKER) 97 mg/dL 70-[address] [facility] [address] [place] [address] (test vzdq=7869) [facility] [address] BASIC METABOLIC [id number] 06:12:00 Test Item Value Reference Range Comments SODIUM (BEAKER) (test 136 meq/L 136-145 lxbf=090) POTASSIUM (BEAKER) (test 4.2 meq/L 3.5-5.1 meyw=950) CHLORIDE (BEAKER) (test 103 meq/L 98-107 jnne=497) CO2 (BEAKER) (test 25 meq/L 22-29 ahel=894) BLOOD UREA NITROGEN 18 mg/dL 7-21 (BEAKER) (test ubpz=372) CREATININE (BEAKER) (test 0.70 mg/dL 0.57-1.25 xicm=372) GLUCOSE RANDOM (BEAKER) 96 mg/dL 70-105 (test iwia=253) CALCIUM (BEAKER) (test 9.2 mg/dL 8.4-10.2 hnww=644) EGFR (BEAKER) (test mL/min/1.73 sq m INSUFFICIENT CLINICAL DATA figy=7627) TO CALCULATE ESTIMATED GFR. POCT-GLUCOSE [id number] 21:09:00 Test Item Value Reference Range Comments POC-GLUCOSE METER (BEAKER) 105 mg/dL 70-110 TESTED AT [address] (test tngu=3973) [place] [address] POCT-GLUCOSE [id number] 17:16:00 Test Item Value Reference Range Comments POC-GLUCOSE METER (BEAKER) 86 mg/dL 70-110 TESTED AT [address] (test cegr=8964) [place] [address] POCT-GLUCOSE [id number] 11:29:00 Test Item Value Reference Range Comments POC-GLUCOSE METER (BEAKER) 165 mg/dL 70-110 TESTED AT [address] (test ihyx=6398) [place] [address] POCT-GLUCOSE [id number] 08:35:00 Test Item Value Reference Range Comments POC-GLUCOSE METER (BEAKER) 103 mg/dL 70-110 TESTED AT [address] (test dept=2824) [place] [address] BASIC METABOLIC [id number] 06:54:00 Test Item Value Reference Range Comments SODIUM (BEAKER) (test 131 meq/L 136-145 bwyo=083) POTASSIUM (BEAKER) (test 4.4 meq/L 3.5-5.1 Specimen slightly jksw=002) hemolyzed CHLORIDE (BEAKER) (test 101 meq/L 98-107 ijpc=585) CO2 (BEAKER) (test 20 meq/L 22-29 qfqr=210) BLOOD UREA NITROGEN 15 mg/dL 7-21 (BEAKER) (test ilut=963) CREATININE (BEAKER) (test 0.73 mg/dL 0.57-1.25 Specimen slightly mcxq=615) hemolyzed GLUCOSE RANDOM (BEAKER) 114 mg/dL 70-105 (test fzhs=545) CALCIUM (BEAKER) (test 8.9 mg/dL 8.4-10.2 trie=665) EGFR (BEAKER) (test mL/min/1.73 sq m INSUFFICIENT CLINICAL DATA hdlg=9739) TO CALCULATE ESTIMATED GFR. [id number] 05:48:00 Test Item Value Reference Range Comments PHOSPHORUS (BEAKER) (test 3.8 mg/dL 2.3-4.7 Specimen slightly hemolyzed cvpd=729) CBC W/PLT COUNT & AUTO [id number] 04:08:00 Test Item Value Reference Range Comments WHITE BLOOD CELL COUNT (BEAKER) (test ysbw=761) 12.1 K/ L 3.5-10.5 RED BLOOD CELL COUNT (BEAKER) (test augn=236) 4.82 M/ L 4.63-6.08 HEMOGLOBIN (BEAKER) (test vggu=002) 15.8 GM/DL 13.7-17.5 HEMATOCRIT (BEAKER) (test gonm=185) 45.4 % 40.1-51.0 MEAN CORPUSCULAR VOLUME (BEAKER) (test qiym=846) 94.2 fL 79.0-92.2 MEAN CORPUSCULAR HEMOGLOBIN (BEAKER) (test 32.8 pg 25.7-32.2 xmre=596) MEAN CORPUSCULAR HEMOGLOBIN CONC (BEAKER) (test 34.8 GM/DL 32.3-36.5 quxu=294) RED CELL DISTRIBUTION WIDTH (BEAKER) (test 13.5 % 11.6-14.4 svwg=563) PLATELET COUNT (BEAKER) (test ltkt=274) 182 K/CU MM 150-450 MEAN PLATELET VOLUME (BEAKER) (test mpri=313) 10.3 fL 9.4-12.4 NUCLEATED RED BLOOD CELLS (BEAKER) (test 0 /100 WBC 0-0 cixh=909) NEUTROPHILS RELATIVE PERCENT (BEAKER) (test 79 % pfqv=931) LYMPHOCYTES RELATIVE PERCENT (BEAKER) (test 7 % cuka=252) MONOCYTES RELATIVE PERCENT (BEAKER) (test 10 % nbti=738) EOSINOPHILS RELATIVE PERCENT (BEAKER) (test 1 % sanw=716) BASOPHILS RELATIVE PERCENT (BEAKER) (test 0 % tpbx=485) NEUTROPHILS ABSOLUTE COUNT (BEAKER) (test 9.55 K/ L 1.78-5.38 adfu=969) LYMPHOCYTES ABSOLUTE COUNT (BEAKER) (test 0.81 K/ L 1.32-3.57 kmnf=788) MONOCYTES ABSOLUTE COUNT (BEAKER) (test 1.22 K/ L 0.30-0.82 fuvg=831) EOSINOPHILS ABSOLUTE COUNT (BEAKER) (test 0.13 K/ L 0.04-0.54 azvb=484) BASOPHILS ABSOLUTE COUNT (BEAKER) (test 0.05 K/ L 0.01-0.08 jsoq=391) IMMATURE GRANULOCYTES-RELATIVE PERCENT (BEAKER) 3 % 0-1 (test hwes=8941) CALCIUM, [id number] 04:07:00 Test Item Value Reference Range Comments CALCIUM IONIZED (BEAKER) (test uwvt=397) 1.01 mmol/L 1.12-1.27 PH, BLOOD (BEAKER) (test cdbi=0234) 7.49 POCT-GLUCOSE [id number] 21:24:00 Test Item Value Reference Range Comments POC-GLUCOSE METER (BEAKER) 113 mg/dL 70-110 TESTED AT [address] (test huod=1616) [place] [address] POCT-GLUCOSE [id number] 17:33:00 Test Item Value Reference Range Comments POC-GLUCOSE METER (BEAKER) 98 mg/dL 70-110 TESTED AT [address] (test nijs=2735) [place] [address] POCT-GLUCOSE [id number] 11:58:00 Test Item Value Reference Range Comments POC-GLUCOSE METER (BEAKER) 82 mg/dL 70-110 TESTED AT [address] (test kngm=8094) [place] [address] POCT-GLUCOSE [id number] 08:16:00 Test Item Value Reference Range Comments POC-GLUCOSE METER (BEAKER) 96 mg/dL 70-110 TESTED AT [address] (test wlma=8172) [facility] [address] BASIC METABOLIC [id number] 07:07:00 Test Item Value Reference Range Comments SODIUM (BEAKER) (test 133 meq/L 136-145 zydt=250) POTASSIUM (BEAKER) (test 4.2 meq/L 3.5-5.1 eafl=276) CHLORIDE (BEAKER) (test 101 meq/L 98-107 cyvt=495) CO2 (BEAKER) (test 26 meq/L 22-29 vkue=296) BLOOD UREA NITROGEN 17 mg/dL 7-21 (BEAKER) (test qdir=847) CREATININE (BEAKER) (test 0.67 mg/dL 0.57-1.25 ferw=098) GLUCOSE RANDOM (BEAKER) 110 mg/dL 70-105 (test tzug=390) CALCIUM (BEAKER) (test 8.7 mg/dL 8.4-10.2 aivo=525) EGFR (BEAKER) (test mL/min/1.73 sq m INSUFFICIENT CLINICAL DATA gjof=3090) TO CALCULATE ESTIMATED GFR. CBC W/PLT COUNT & AUTO [id number] 05:55:00 Test Item Value Reference Range Comments WHITE BLOOD CELL COUNT (BEAKER) (test djgc=866) 11.9 K/ L 3.5-10.5 RED BLOOD CELL COUNT (BEAKER) (test uydo=518) 4.55 M/ L 4.63-6.08 HEMOGLOBIN (BEAKER) (test pxef=403) 14.8 GM/DL 13.7-17.5 HEMATOCRIT (BEAKER) (test urzp=352) 42.3 % 40.1-51.0 MEAN CORPUSCULAR VOLUME (BEAKER) (test hnfk=149) 93.0 fL 79.0-92.2 MEAN CORPUSCULAR HEMOGLOBIN (BEAKER) (test 32.5 pg 25.7-32.2 iejn=819) MEAN CORPUSCULAR HEMOGLOBIN CONC (BEAKER) (test 35.0 GM/DL 32.3-36.5 jckf=265) RED CELL DISTRIBUTION WIDTH (BEAKER) (test 13.5 % 11.6-14.4 deiw=126) PLATELET COUNT (BEAKER) (test somh=593) 170 K/CU MM 150-450 MEAN PLATELET VOLUME (BEAKER) (test leit=562) 10.2 fL 9.4-12.4 NUCLEATED RED BLOOD CELLS (BEAKER) (test 0 /100 WBC 0-0 kema=099) NEUTROPHILS RELATIVE PERCENT (BEAKER) (test 76 % ivth=165) LYMPHOCYTES RELATIVE PERCENT (BEAKER) (test 7 % vlsk=650) MONOCYTES RELATIVE PERCENT (BEAKER) (test 13 % ugvw=154) EOSINOPHILS RELATIVE PERCENT (BEAKER) (test 1 % eicl=366) BASOPHILS RELATIVE PERCENT (BEAKER) (test 1 % dain=426) NEUTROPHILS ABSOLUTE COUNT (BEAKER) (test 9.11 K/ L 1.78-5.38 iqjr=680) LYMPHOCYTES ABSOLUTE COUNT (BEAKER) (test 0.88 K/ L 1.32-3.57 nnkb=232) MONOCYTES ABSOLUTE COUNT (BEAKER) (test 1.49 K/ L 0.30-0.82 hsxy=907) EOSINOPHILS ABSOLUTE COUNT (BEAKER) (test 0.07 K/ L 0.04-0.54 fecj=480) BASOPHILS ABSOLUTE COUNT (BEAKER) (test 0.06 K/ L 0.01-0.08 fxnn=623) IMMATURE GRANULOCYTES-RELATIVE PERCENT (BEAKER) 3 % 0-1 (test btfz=5851) POCT-GLUCOSE [id number] 18:30:00 Test Item Value Reference Range Comments POC-GLUCOSE METER (BEAKER) 116 mg/dL 70-110 TESTED AT [address] (test koqf=1651) [place] [address] POCT-GLUCOSE [id number] 12:51:00 Test Item Value Reference Range Comments POC-GLUCOSE METER (BEAKER) 106 mg/dL 70-110 TESTED AT [address] (test tnjg=8834) [place] [address] CBC W/PLT COUNT & AUTO [id number] 10:15:00 Test Item Value Reference Range Comments WHITE BLOOD CELL COUNT (BEAKER) (test tgnf=454) 12.8 K/ L 3.5-10.5 RED BLOOD CELL COUNT (BEAKER) (test gzkf=965) 4.61 M/ L 4.63-6.08 HEMOGLOBIN (BEAKER) (test munm=873) 15.0 GM/DL 13.7-17.5 HEMATOCRIT (BEAKER) (test esrr=749) 43.2 % 40.1-51.0 MEAN CORPUSCULAR VOLUME (BEAKER) (test gyxd=306) 93.7 fL 79.0-92.2 MEAN CORPUSCULAR HEMOGLOBIN (BEAKER) (test 32.5 pg 25.7-32.2 tsvo=089) MEAN CORPUSCULAR HEMOGLOBIN CONC (BEAKER) (test 34.7 GM/DL 32.3-36.5 sowo=589) RED CELL DISTRIBUTION WIDTH (BEAKER) (test 13.8 % 11.6-14.4 yxeh=852) PLATELET COUNT (BEAKER) (test cazo=899) 174 K/CU MM 150-450 MEAN PLATELET VOLUME (BEAKER) (test kucw=233) 10.3 fL 9.4-12.4 NUCLEATED RED BLOOD CELLS (BEAKER) (test 0 /100 WBC 0-0 ldtx=267) (CELLAVISION MANUAL DIFF)2017-08-17 10:15:00 Test Item Value Reference Range Comments NEUTROPHILS - REL (CELLAVISION)(BEAKER) (test 84 % jmnj=1482) LYMPHOCYTES - REL (CELLAVISION)(BEAKER) (test 3 % nzge=5808) MONOCYTES - REL (CELLAVISION)(BEAKER) (test 12 % ysom=0882) ATYPICAL LYMPHOCYTES - REL (CELLAVISION)(BEAKER) 1 % 0-0 (test gxtr=3424) NEUTROPHILS - ABS (CELLAVISION)(BEAKER) (test 10.75 K/ul 1.78-5.38 oevr=8607) LYMPHOCYTES - ABS (CELLAVISION)(BEAKER) (test 0.38 K/ul 1.32-3.57 gghd=4976) MONOCYTES - ABS (CELLAVISION)(BEAKER) (test 1.54 K/uL 0.30-0.82 flxa=5945) ATYPICAL LYMPHOCYTES - ABS (CELLAVISION)(BEAKER) 0.13 K/uL 0.00-0.00 (test bpmx=8845) TOTAL COUNTED (BEAKER) (test mpyj=9326) 100 RBC MORPHOLOGY (BEAKER) (test fexl=621) Normal WBC MORPHOLOGY (BEAKER) (test uqpv=565) Normal PLT MORPHOLOGY (BEAKER) (test fihc=126) Normal ARTIFACT (CELLAVISION)(BEAKER) (test bkwb=6106) Present PLATELET CONCENTRATION (CELLAVISION)(BEAKER) Adequate (test cbhw=5385) Received comment: User comments: Slide comments:POCT-GLUCOSE [id number] 08: 06:00 Test Item Value Reference Range Comments POC-GLUCOSE METER (BEAKER) 153 mg/dL 70-[address] [facility] [address] [facility] (test gdvs=3250) [facility] [address] BASIC METABOLIC [id number] 05:27:00 Test Item Value Reference Range Comments SODIUM (BEAKER) (test 134 meq/L 136-145 bntz=236) POTASSIUM (BEAKER) (test 3.9 meq/L 3.5-5.1 cnif=253) CHLORIDE (BEAKER) (test 100 meq/L 98-107 jobp=858) CO2 (BEAKER) (test 28 meq/L 22-29 tzyr=652) BLOOD UREA NITROGEN 13 mg/dL 7-21 (BEAKER) (test ujfy=091) CREATININE (BEAKER) (test 0.65 mg/dL 0.57-1.25 vvfe=163) GLUCOSE RANDOM (BEAKER) 109 mg/dL 70-105 (test ksnp=064) CALCIUM (BEAKER) (test 8.6 mg/dL 8.4-10.2 rnrg=618) EGFR (BEAKER) (test mL/min/1.73 sq m INSUFFICIENT CLINICAL DATA eqpk=5586) TO CALCULATE ESTIMATED GFR. POCT-GLUCOSE [id number] 22:41:00 Test Item Value Reference Range Comments POC-GLUCOSE METER (BEAKER) 99 mg/dL 70-110 TESTED AT [address] (test ugsb=5587) [facility] [address] POCT-GLUCOSE [id number] 18:11:00 Test Item Value Reference Range Comments POC-GLUCOSE METER (BEAKER) 88 mg/dL 70-110 TESTED AT [address] (test ljjw=2464) [facility] [id number] CBC W/PLT COUNT & AUTO [id number] 13:22:00 Test Item Value Reference Range Comments WHITE BLOOD CELL COUNT (BEAKER) (test mxkw=162) 15.4 K/ L 3.5-10.5 RED BLOOD CELL COUNT (BEAKER) (test xcbw=065) 4.42 M/ L 4.63-6.08 HEMOGLOBIN (BEAKER) (test axbo=165) 14.0 GM/DL 13.7-17.5 HEMATOCRIT (BEAKER) (test clgm=615) 43.1 % 40.1-51.0 MEAN CORPUSCULAR VOLUME (BEAKER) (test eshc=578) 97.5 fL 79.0-92.2 MEAN CORPUSCULAR HEMOGLOBIN (BEAKER) (test 31.7 pg 25.7-32.2 jzsq=018) MEAN CORPUSCULAR HEMOGLOBIN CONC (BEAKER) (test 32.5 GM/DL 32.3-36.5 oxik=397) RED CELL DISTRIBUTION WIDTH (BEAKER) (test 13.9 % 11.6-14.4 goyr=710) PLATELET COUNT (BEAKER) (test fupj=683) 187 K/CU MM 150-450 MEAN PLATELET VOLUME (BEAKER) (test sdth=341) 9.6 fL 9.4-12.4 NUCLEATED RED BLOOD CELLS (BEAKER) (test 0 /100 WBC 0-0 efer=602) (CELLAVISION MANUAL DIFF)2017-08-16 13:22:00 Test Item Value Reference Range Comments NEUTROPHILS - REL (CELLAVISION)(BEAKER) (test 85 % umpx=7186) LYMPHOCYTES - REL (CELLAVISION)(BEAKER) (test 4 % aosh=1823) MONOCYTES - REL (CELLAVISION)(BEAKER) (test 10 % fbkq=2914) ATYPICAL LYMPHOCYTES - REL (CELLAVISION)(BEAKER) 1 % 0-0 (test qtwj=2367) NEUTROPHILS - ABS (CELLAVISION)(BEAKER) (test 13.09 K/ul 1.78-5.38 cndw=2525) LYMPHOCYTES - ABS (CELLAVISION)(BEAKER) (test 0.62 K/ul 1.32-3.57 imgi=8805) MONOCYTES - ABS (CELLAVISION)(BEAKER) (test 1.54 K/uL 0.30-0.82 xufb=2026) ATYPICAL LYMPHOCYTES - ABS (CELLAVISION)(BEAKER) 0.15 K/uL 0.00-0.00 (test nkmo=0166) TOTAL COUNTED (BEAKER) (test ywbd=0371) 100 SMUDGE CELLS (BEAKER) (test kxes=3364) Present GIANT PLATELETS (BEAKER) (test hjcq=570) Present POIKILOCYTES (BEAKER) (test rfdz=658) 2+ moderate SPHEROCYTES (BEAKER) (test gypv=502) 1+ few PLATELET CONCENTRATION (CELLAVISION)(BEAKER) Adequate (test qqgq=8407) Received comment: User comments: Slide comments:HEMOGLOBIN [id number] 12:10: 00 Test Item Value Reference Range Comments HEMOGLOBIN A1C (BEAKER) (test rnep=898) 6.0 % 4.3-6.1 POCT-GLUCOSE [id number] 11:17:00 Test Item Value Reference Range Comments POC-GLUCOSE METER (BEAKER) 90 mg/dL 70-[address] [facility] [address] (test bjjj=2792) [facility] [address] MR, BRAIN, [id number] 11:02:00FINAL REPORT MRI Brain with and without contrast INDICATION: Brain tumor, postop. TECHNIQUE: Multiplanar, multisequence MR imaging of the brain was performed, utilizing the following imaging sequences: Axial T1, T2, FLAIR, DWI, GRE; sagittal T1; postcontrast axial, sagittal, andcoronal T1. COMPARISON: CT head 08/14/2017, MRI brain 08/11/2017 FINDINGS:Left-sided craniotomy changes are noted with a left superior frontal lobe and precentral gyrus operative cavity containing minimal hemorrhage that extends to the overlying extra-axial space. Allowing for T1 hyperintensity due to blood, there is mild operative cavity margin enhancement with nodularity anteriorly suggesting minimalresidual neoplasm. There is small volume ischemic edema surrounding the operative site extending into the centrum semiovale. Underlying vasogenic edema in the frontal and parietal lobes, perisylvian region, and deep white matter is otherwise stable. Residual mass effect remains present with 5 mm rightward midline shift at the septum pellucidum. A 12 mm nonresected lesion in the right precentral gyrusappears unchanged, with surrounding edema. There is minimal extra axial collection beneath the left sided craniotomy site, without mass effect. No malignant hematoma is seen. There is no hydrocephalus.Chronic microvascular ischemic changes are seen in the cerebral white matter and brainstem. A small right cerebellar chronic infarct and tiny lacunar infarcts and/or perivascular spaces are again seen.The major vascular flow voids are maintained. Degenerative spine changes and C1-2 arthropathy are again noted. The sella and orbits are unremarkable. There is mild chronic sinus mucosal disease with well aerated mastoid air cells. There is a chronic right lamina papyracea fracture. IMPRESSION: Postoperative changes related to left perirolandic lesion resection with minimal residual neoplasm along the operative cavity margins. Nonresected right precentral gyrus lesion and bilateral vasogenic edema are stable since preoperative MRI imaging with slightly improved left sided mass effect. MRI follow upis suggested. Signed: Ed, Visveshwar MDReport Verified Date/Time : 08/16/2017 11:02:18 ReadingLocation: [facility] B1 C013V Neuro Reading Room POCT- GLUCOSE [id number] 08:14:00 Test Item Value Reference Range Comments POC-GLUCOSE METER (BEAKER) 93 mg/dL 70-110 TESTED AT [address] (test czxe=0392) [facility] [address] POCT-GLUCOSE [id number] 22:53:00 Test Item Value Reference Range Comments POC-GLUCOSE METER (BEAKER) 239 mg/dL 70-110 TESTED AT [address] (test umnd=5400) [facility] [address] POCT-GLUCOSE [id number] 18:06:00 Test Item Value Reference Range Comments POC-GLUCOSE METER (BEAKER) 122 mg/dL 70-110 TESTED AT [address] (test efdg=8981) [facility] [address] BLOOD GAS, [id number] 10:55:00 Test Item Value Reference Range Comments PH ARTERIAL (BEAKER) (test qqtw=471) 7.43 7.35-7.45 PCO2 ARTERIAL (BEAKER) (test ywjt=258) 41 mmHg 35-45 PO2 ARTERIAL (BEAKER) (test tzjc=093) 243 mmHg 80-90 O2 SATURATION ARTERIAL (BEAKER) (test ymfv=181) 99.6 % 96.0-97.0 HCO3 ARTERIAL (BEAKER) (test bzkt=518) 27 mmol/L 21-29 BASE EXCESS ARTERIAL (BEAKER) (test ctqz=251) 2.0 mmol/L -2.0-3.0 PATIENT TEMPERATURE (BEAKER) (test pxdy=5387) 36.4 C FIO2 (BEAKER) (test qnbi=0318) 94.0 % SODIUM NA-STAT [id number] 10:55:00 Test Item Value Reference Range Comments SODIUM (BEAKER) (test yvru=486) 134 meq/L 135-148 GLUCOSE-STAT [id number] 10:55:00 Test Item Value Reference Range Comments GLUCOSE RANDOM (BEAKER) (test tawz=812) 123 mg/dL 70-110 CALCIUM, [id number] 10:54:00 Test Item Value Reference Range Comments CALCIUM IONIZED (BEAKER) (test nbys=307) 0.98 mmol/L 1.12-1.27 PH, BLOOD (BEAKER) (test ycyz=8992) 7.42 POTASSIUM-STAT [id number] 10:54:00 Test Item Value Reference Range Comments POTASSIUM (BEAKER) (test wrxv=318) 3.8 meq/L 3.6-5.5 HGB/HCT (H&H) - STAT [id number] 10:54:00 Test Item Value Reference Range Comments HEMOGLOBIN (BEAKER) (test xums=034) 15.5 g/dL 13.0-16.8 HEMATOCRIT (BEAKER) (test ypgq=358) 46.0 % 40.0-50.0 CALCIUM, [id number] 09:14:00 Test Item Value Reference Range Comments CALCIUM IONIZED (BEAKER) (test qssa=529) 1.05 mmol/L 1.12-1.27 PH, BLOOD (BEAKER) (test kvox=8560) 7.41 BLOOD GAS, [id number] 09:14:00 Test Item Value Reference Range Comments PH ARTERIAL (BEAKER) (test ypxy=743) 7.41 7.35-7.45 PCO2 ARTERIAL (BEAKER) (test fbxk=836) 44 mmHg 35-45 PO2 ARTERIAL (BEAKER) (test htqz=122) 206 mmHg 80-90 O2 SATURATION ARTERIAL (BEAKER) (test fehc=168) 99.4 % 96.0-97.0 HCO3 ARTERIAL (BEAKER) (test mnzz=888) 27 mmol/L 21-29 BASE EXCESS ARTERIAL (BEAKER) (test betf=837) 2.0 mmol/L -2.0-3.0 PATIENT TEMPERATURE (BEAKER) (test tjzy=2186) 37.0 C FIO2 (BEAKER) (test nmtr=5125) 100.0 % GLUCOSE-STAT [id number] 09:13:00 Test Item Value Reference Range Comments GLUCOSE RANDOM (BEAKER) (test crsk=409) 104 mg/dL 70-110 SODIUM NA-STAT [id number] 09:13:00 Test Item Value Reference Range Comments SODIUM (BEAKER) (test xlmg=596) 136 meq/L 135-148 POTASSIUM-STAT [id number] 09:13:00 Test Item Value Reference Range Comments POTASSIUM (BEAKER) (test mmdw=909) 3.5 meq/L 3.6-5.5 HGB/HCT (H&H) - STAT [id number] 09:13:00 Test Item Value Reference Range Comments HEMOGLOBIN (BEAKER) (test mrmc=297) 15.2 g/dL 13.0-16.8 HEMATOCRIT (BEAKER) (test oqzu=548) 45.0 % 40.0-50.0 POCT-GLUCOSE [id number] 05:20:00 Test Item Value Reference Range Comments POC-GLUCOSE METER (BEAKER) 95 mg/dL 70-[address] [facility] [address] [facility] (test xrhw=6922) [facility] [address] BASIC METABOLIC [id number] 04:26:00 Test Item Value Reference Range Comments SODIUM (BEAKER) (test 134 meq/L 136-145 vcvj=931) POTASSIUM (BEAKER) (test 4.0 meq/L 3.5-5.1 rlav=677) CHLORIDE (BEAKER) (test 101 meq/L 98-107 vssm=350) CO2 (BEAKER) (test 24 meq/L 22-29 lfgz=491) BLOOD UREA NITROGEN 15 mg/dL 7-21 (BEAKER) (test aqfv=625) CREATININE (BEAKER) (test 0.62 mg/dL 0.57-1.25 iczf=711) GLUCOSE RANDOM (BEAKER) 107 mg/dL 70-105 (test jrto=133) CALCIUM (BEAKER) (test 8.9 mg/dL 8.4-10.2 gzha=704) EGFR (BEAKER) (test mL/min/1.73 sq m INSUFFICIENT CLINICAL DATA tpst=2083) TO CALCULATE ESTIMATED GFR. CBC W/PLT COUNT & AUTO [id number] 03:56:00 Test Item Value Reference Range Comments WHITE BLOOD CELL COUNT (BEAKER) (test wrpu=973) 15.6 K/ L 3.5-10.5 RED BLOOD CELL COUNT (BEAKER) (test giqj=223) 4.72 M/ L 4.63-6.08 HEMOGLOBIN (BEAKER) (test aarp=241) 15.2 GM/DL 13.7-17.5 HEMATOCRIT (BEAKER) (test rlmp=365) 44.6 % 40.1-51.0 MEAN CORPUSCULAR VOLUME (BEAKER) (test uwgc=160) 94.5 fL 79.0-92.2 MEAN CORPUSCULAR HEMOGLOBIN (BEAKER) (test 32.2 pg 25.7-32.2 capi=290) MEAN CORPUSCULAR HEMOGLOBIN CONC (BEAKER) (test 34.1 GM/DL 32.3-36.5 ifog=511) RED CELL DISTRIBUTION WIDTH (BEAKER) (test 13.4 % 11.6-14.4 cizs=675) PLATELET COUNT (BEAKER) (test unav=901) 223 K/CU MM 150-450 MEAN PLATELET VOLUME (BEAKER) (test cnys=537) 9.7 fL 9.4-12.4 NUCLEATED RED BLOOD CELLS (BEAKER) (test 0 /100 WBC 0-0 uguj=190) NEUTROPHILS RELATIVE PERCENT (BEAKER) (test 88 % hehq=600) LYMPHOCYTES RELATIVE PERCENT (BEAKER) (test 5 % aydw=995) MONOCYTES RELATIVE PERCENT (BEAKER) (test 5 % lepr=299) EOSINOPHILS RELATIVE PERCENT (BEAKER) (test 0 % xahl=880) BASOPHILS RELATIVE PERCENT (BEAKER) (test 0 % amht=553) NEUTROPHILS ABSOLUTE COUNT (BEAKER) (test 13.70 K/ L 1.78-5.38 zkel=892) LYMPHOCYTES ABSOLUTE COUNT (BEAKER) (test 0.81 K/ L 1.32-3.57 rdgp=401) MONOCYTES ABSOLUTE COUNT (BEAKER) (test 0.80 K/ L 0.30-0.82 pjtj=512) EOSINOPHILS ABSOLUTE COUNT (BEAKER) (test 0.02 K/ L 0.04-0.54 ldlx=959) BASOPHILS ABSOLUTE COUNT (BEAKER) (test 0.03 K/ L 0.01-0.08 rtsq=333) IMMATURE GRANULOCYTES-RELATIVE PERCENT (BEAKER) 1 % 0-1 (test arkf=6057) CT, BRAIN, [id number] 22:55:00STEALTH protocol 1mm cut, zero gantryFINAL REPORT EXAM: CT head with and without contrast. CLINICAL HISTORY: Neoplasm: head, [employer], suspected For OR planning - STEALTH protocol 1mm cuts, zero gantry COMPARISON: BrainMRI 08/11/2017.. TECHNIQUE: CT images of the head [...] There is mild vasogenic edema in the rightfrontal lobe predominantly involving the precentral gyrus due to 1.2 cm enhancing lesion in the right precentral gyrus. There is no acute intracranial hemorrhage, extra- axial fluid collection or hydrocephalus. The basal cisterns are patent. There are mild white matter microvascular ischemic changes. There is no large demarcated acute territorial infarct. There is intracranial calcific atherosclerosis. The visualized orbits are normal. The visualized paranasal sinuses and tympanomastoid cavities areclear. The skull base and calvarium are intact. IMPRESSION: Bilateral frontal lobe masses with associated vasogenic edema and mass effect. 5 mm left vzct-am-bknxc midline shift. No acute hemorrhage orhydrocephalus. Signed: Reynaldo Richards Verified Date/Time: 08/14/2017 22:55:19 Reading Location: [address] Reading Room POCT- GLUCOSE [id number] 22:45:00 Test Item Value Reference Range Comments POC-GLUCOSE METER (BEAKER) 99 mg/dL 70-110 TESTED AT [address] (test avxd=7659) [facility] [address] POCT-GLUCOSE [id number] 11:24:00 Test Item Value Reference Range Comments POC-GLUCOSE METER (BEAKER) 93 mg/dL 70-110 TESTED AT [address] (test yuxm=1951) [facility] [address] POCT-GLUCOSE [id number] 08:02:00 Test Item Value Reference Range Comments POC-GLUCOSE METER (BEAKER) 126 mg/dL 70-110 TESTED AT [place] [address] [address] (test phld=4574) [facility] [address] BASIC METABOLIC [id number] 05:56:00 Test Item Value Reference Range Comments SODIUM (BEAKER) (test 134 meq/L 136-145 flpn=942) POTASSIUM (BEAKER) (test 4.4 meq/L 3.5-5.1 Specimen slightly eopp=666) hemolyzed CHLORIDE (BEAKER) (test 104 meq/L 98-107 gkkp=519) CO2 (BEAKER) (test 18 meq/L 22-29 epkb=087) BLOOD UREA NITROGEN 15 mg/dL 7-21 (BEAKER) (test qfyo=633) CREATININE (BEAKER) (test 0.64 mg/dL 0.57-1.25 Specimen slightly znut=655) hemolyzed GLUCOSE RANDOM (BEAKER) 104 mg/dL 70-105 (test fpni=367) CALCIUM (BEAKER) (test 9.1 mg/dL 8.4-10.2 zcrk=794) EGFR (BEAKER) (test mL/min/1.73 sq m INSUFFICIENT CLINICAL DATA xnef=6499) TO CALCULATE ESTIMATED GFR. CBC W/PLT COUNT & AUTO [id number] 05:39:00 Test Item Value Reference Range Comments WHITE BLOOD CELL COUNT (BEAKER) (test euew=649) 18.1 K/ L 3.5-10.5 RED BLOOD CELL COUNT (BEAKER) (test bqer=939) 4.62 M/ L 4.63-6.08 HEMOGLOBIN (BEAKER) (test xrbf=131) 15.2 GM/DL 13.7-17.5 HEMATOCRIT (BEAKER) (test zojw=152) 43.5 % 40.1-51.0 MEAN CORPUSCULAR VOLUME (BEAKER) (test yrgd=105) 94.2 fL 79.0-92.2 MEAN CORPUSCULAR HEMOGLOBIN (BEAKER) (test 32.9 pg 25.7-32.2 wlrz=199) MEAN CORPUSCULAR HEMOGLOBIN CONC (BEAKER) (test 34.9 GM/DL 32.3-36.5 hxwe=678) RED CELL DISTRIBUTION WIDTH (BEAKER) (test 13.9 % 11.6-14.4 zbkm=436) PLATELET COUNT (BEAKER) (test hjdw=776) 202 K/CU MM 150-450 MEAN PLATELET VOLUME (BEAKER) (test wcgj=459) 9.6 fL 9.4-12.4 NUCLEATED RED BLOOD CELLS (BEAKER) (test 0 /100 WBC 0-0 ktco=150) NEUTROPHILS RELATIVE PERCENT (BEAKER) (test 86 % kset=696) LYMPHOCYTES RELATIVE PERCENT (BEAKER) (test 6 % kfnb=730) MONOCYTES RELATIVE PERCENT (BEAKER) (test 7 % xnss=970) EOSINOPHILS RELATIVE PERCENT (BEAKER) (test 0 % kbtm=086) BASOPHILS RELATIVE PERCENT (BEAKER) (test 0 % vimz=688) NEUTROPHILS ABSOLUTE COUNT (BEAKER) (test 15.64 K/ L 1.78-5.38 lovk=915) LYMPHOCYTES ABSOLUTE COUNT (BEAKER) (test 1.01 K/ L 1.32-3.57 ldfy=716) MONOCYTES ABSOLUTE COUNT (BEAKER) (test 1.24 K/ L 0.30-0.82 ewoe=787) EOSINOPHILS ABSOLUTE COUNT (BEAKER) (test 0.01 K/ L 0.04-0.54 esas=415) BASOPHILS ABSOLUTE COUNT (BEAKER) (test 0.03 K/ L 0.01-0.08 vbtn=545) IMMATURE GRANULOCYTES-RELATIVE PERCENT (BEAKER) 1 % 0-1 (test ohek=7680) POCT-GLUCOSE [id number] 23:01:00 Test Item Value Reference Range Comments POC-GLUCOSE METER (BEAKER) 117 mg/dL 70-110 TESTED AT [address] (test cxjz=3329) [place] [id number] POCT-GLUCOSE [id number] 17:15:00 Test Item Value Reference Range Comments POC-GLUCOSE METER (BEAKER) 123 mg/dL 70-110 TESTED AT [address] (test xuzg=1730) [facility] [address] EEG AWAKE AND [id number] 17:11:00Reason for exam:->suspected seizuresNeurophysiology Electroencephalogram Report DATE OF REPORT: 08/13/17 Date(s) of Study: 08/13/17 [id number] Start time: 0949 hrs Stop time: 1010 hrs ICD-10: R56.9 Unspecified ConvulsionsCPT Code: 19202 EEG: awake and asleep <40 min HISTORY: [...] weakness. MEDICATIONS THAT COULD AFFECT EEG: Levetiracetam, [place] TECHNICAL SUMMARY: This is a digital video [...] the PDR. Vertex waves were seen in stageI sleep; symmetric frontocentral spindles were seen in [...] No epileptiform or focal abnormalities or electrographic seizuresseen. CLINICAL COMMENT: An EEG without epileptiform discharges does not exclude the possibility ofepilepsy. If the clinical suspicion of epilepsy remains, consider additional prolonged EEG recordings to captured events in question. Chanell Solorio MD Epilepsy Fellow Anamaria Burnett [facility] Neurophysiology/Epilepsy Attending [place], [place] Electronically signedby: ANAMARIA BURNETT MD on 08/13/2017 05: 11 PMPOCT-GLUCOSE [id number] 12:05:00 Test Item Value Reference Range Comments POC-GLUCOSE METER (BEAKER) 140 mg/dL 70-110 TESTED AT [address] (test qlhp=8099) [facility] [address] POCT-GLUCOSE [id number] 08:17:00 Test Item Value Reference Range Comments POC-GLUCOSE METER (BEAKER) 90 mg/dL 70-110 TESTED AT [address] (test cjpw=3665) [facility] [address] POCT-GLUCOSE [id number] 06:21:00 Test Item Value Reference Range Comments POC-GLUCOSE METER (BEAKER) 107 mg/dL 70-[address] [facility] [address] [facility] (test mjzf=1360) [facility] [address] BASIC METABOLIC [id number] 05:00:00 Test Item Value Reference Range Comments SODIUM (BEAKER) (test 135 meq/L 136-145 yrbm=243) POTASSIUM (BEAKER) (test 4.4 meq/L 3.5-5.1 vmwn=999) CHLORIDE (BEAKER) (test 103 meq/L 98-107 bzmx=521) CO2 (BEAKER) (test 23 meq/L 22-29 jeve=840) BLOOD UREA NITROGEN 15 mg/dL 7-21 (BEAKER) (test ehui=804) CREATININE (BEAKER) (test 0.71 mg/dL 0.57-1.25 jnmz=843) GLUCOSE RANDOM (BEAKER) 106 mg/dL 70-105 (test vyvd=923) CALCIUM (BEAKER) (test 9.1 mg/dL 8.4-10.2 crel=003) EGFR (BEAKER) (test mL/min/1.73 sq m INSUFFICIENT CLINICAL DATA fyvw=1219) TO CALCULATE ESTIMATED GFR. CBC W/PLT COUNT & AUTO [id number] 04:33:00 Test Item Value Reference Range Comments WHITE BLOOD CELL COUNT (BEAKER) (test itzi=615) 20.1 K/ L 3.5-10.5 RED BLOOD CELL COUNT (BEAKER) (test kdzc=184) 4.97 M/ L 4.63-6.08 HEMOGLOBIN (BEAKER) (test mcpu=219) 16.3 GM/DL 13.7-17.5 HEMATOCRIT (BEAKER) (test kdfb=562) 46.6 % 40.1-51.0 MEAN CORPUSCULAR VOLUME (BEAKER) (test tnft=370) 93.8 fL 79.0-92.2 MEAN CORPUSCULAR HEMOGLOBIN (BEAKER) (test 32.8 pg 25.7-32.2 qwyh=730) MEAN CORPUSCULAR HEMOGLOBIN CONC (BEAKER) (test 35.0 GM/DL 32.3-36.5 byhg=354) RED CELL DISTRIBUTION WIDTH (BEAKER) (test 13.8 % 11.6-14.4 ehbm=753) PLATELET COUNT (BEAKER) (test slrh=685) 248 K/CU MM 150-450 MEAN PLATELET VOLUME (BEAKER) (test qmet=190) 9.3 fL 9.4-12.4 NUCLEATED RED BLOOD CELLS (BEAKER) (test 0 /100 WBC 0-0 bjpa=195) NEUTROPHILS RELATIVE PERCENT (BEAKER) (test 86 % awcw=267) LYMPHOCYTES RELATIVE PERCENT (BEAKER) (test 7 % hnzf=583) MONOCYTES RELATIVE PERCENT (BEAKER) (test 6 % wsqd=648) EOSINOPHILS RELATIVE PERCENT (BEAKER) (test 0 % hlig=454) BASOPHILS RELATIVE PERCENT (BEAKER) (test 0 % qfzd=639) NEUTROPHILS ABSOLUTE COUNT (BEAKER) (test 17.22 K/ L 1.78-5.38 vrdh=633) LYMPHOCYTES ABSOLUTE COUNT (BEAKER) (test 1.34 K/ L 1.32-3.57 ineo=708) MONOCYTES ABSOLUTE COUNT (BEAKER) (test 1.27 K/ L 0.30-0.82 njui=667) EOSINOPHILS ABSOLUTE COUNT (BEAKER) (test 0.00 K/ L 0.04-0.54 zgbx=181) BASOPHILS ABSOLUTE COUNT (BEAKER) (test 0.04 K/ L 0.01-0.08 nizi=205) IMMATURE GRANULOCYTES-RELATIVE PERCENT (BEAKER) 1 % 0-1 (test rgwm=4089) POCT-GLUCOSE [id number] 00:41:00 Test Item Value Reference Range Comments POC-GLUCOSE METER (BEAKER) 112 mg/dL 70-110 TESTED AT [address] (test star=9968) [facility] [address] POCT-GLUCOSE [id number] 22:29:00 Test Item Value Reference Range Comments POC-GLUCOSE METER (BEAKER) 168 mg/dL 70-110 TESTED AT [address] (test yral=8086) [facility] [address] POCT-GLUCOSE [id number] 18:10:00 Test Item Value Reference Range Comments POC-GLUCOSE METER (BEAKER) 122 mg/dL 70-110 TESTED AT [address] (test kgab=6449) [facility] [address] POCT-GLUCOSE [id number] 12:31:00 Test Item Value Reference Range Comments POC-GLUCOSE METER (BEAKER) 198 mg/dL 70-[address] [facility] [address] (test oezo=4609) [facility] [address] BASIC METABOLIC [id number] 06:20:00 Test Item Value Reference Range Comments SODIUM (BEAKER) (test 135 meq/L 136-145 oghi=900) POTASSIUM (BEAKER) (test 4.4 meq/L 3.5-5.1 srns=060) CHLORIDE (BEAKER) (test 104 meq/L 98-107 olvx=953) CO2 (BEAKER) (test 21 meq/L 22-29 rnzl=816) BLOOD UREA NITROGEN 8 mg/dL 7-21 (BEAKER) (test lcwe=420) CREATININE (BEAKER) (test 0.68 mg/dL 0.57-1.25 pxpk=762) GLUCOSE RANDOM (BEAKER) 130 mg/dL 70-105 (test uxkm=641) CALCIUM (BEAKER) (test 9.2 mg/dL 8.4-10.2 vkbo=707) EGFR (BEAKER) (test mL/min/1.73 sq m INSUFFICIENT CLINICAL DATA lhbq=1997) TO CALCULATE ESTIMATED GFR. CBC W/PLT COUNT & AUTO [id number] 05:45:00 Test Item Value Reference Range Comments WHITE BLOOD CELL COUNT (BEAKER) (test ckir=807) 20.1 K/ L 3.5-10.5 RED BLOOD CELL COUNT (BEAKER) (test eukk=445) 4.92 M/ L 4.63-6.08 HEMOGLOBIN (BEAKER) (test alrv=608) 16.3 GM/DL 13.7-17.5 HEMATOCRIT (BEAKER) (test usus=282) 46.1 % 40.1-51.0 MEAN CORPUSCULAR VOLUME (BEAKER) (test aqiq=253) 93.7 fL 79.0-92.2 MEAN CORPUSCULAR HEMOGLOBIN (BEAKER) (test 33.1 pg 25.7-32.2 gyoj=379) MEAN CORPUSCULAR HEMOGLOBIN CONC (BEAKER) (test 35.4 GM/DL 32.3-36.5 rdpj=846) RED CELL DISTRIBUTION WIDTH (BEAKER) (test 13.6 % 11.6-14.4 ycxu=682) PLATELET COUNT (BEAKER) (test twup=794) 249 K/CU MM 150-450 MEAN PLATELET VOLUME (BEAKER) (test xcat=908) 9.4 fL 9.4-12.4 NUCLEATED RED BLOOD CELLS (BEAKER) (test 0 /100 WBC 0-0 ltmh=761) NEUTROPHILS RELATIVE PERCENT (BEAKER) (test 91 % tigc=062) LYMPHOCYTES RELATIVE PERCENT (BEAKER) (test 4 % dqxq=385) MONOCYTES RELATIVE PERCENT (BEAKER) (test 5 % onjx=469) EOSINOPHILS RELATIVE PERCENT (BEAKER) (test 0 % ybpz=982) BASOPHILS RELATIVE PERCENT (BEAKER) (test 0 % cwpi=541) NEUTROPHILS ABSOLUTE COUNT (BEAKER) (test 18.15 K/ L 1.78-5.38 myct=847) LYMPHOCYTES ABSOLUTE COUNT (BEAKER) (test 0.73 K/ L 1.32-3.57 cqet=075) MONOCYTES ABSOLUTE COUNT (BEAKER) (test 0.91 K/ L 0.30-0.82 wkqe=911) EOSINOPHILS ABSOLUTE COUNT (BEAKER) (test 0.01 K/ L 0.04-0.54 yvho=710) BASOPHILS ABSOLUTE COUNT (BEAKER) (test 0.05 K/ L 0.01-0.08 pehj=418) IMMATURE GRANULOCYTES-RELATIVE PERCENT (BEAKER) 1 % 0-1 (test qcwa=6824) POCT-GLUCOSE [id number] 18:21:00 Test Item Value Reference Range Comments POC-GLUCOSE METER (BEAKER) 137 mg/dL 70-110 TESTED AT [address] (test xbvl=2255) [facility] [address] CT, CHEST, WITH [id number] 16:20:00FINAL REPORT INDICATION: 61-year-old male with cavitary lesion [...] is a cavitary lesion with an irregular walland air-fluid level within it. It measures 8 [...] amenable to bronchoscopic biopsy. Signed: Isaac Garcia MDReport Verified Date/Time: 08/11/2017 16:20:57 Reading Location: [place] [id number] Ortho Consult Reading Room MR, BRAIN, [id number] 13:51:00Reason for exam:->left frontal massWhat is the patient's sedation requirement?->No SedationFINAL REPORT MRI Brain with and without contrast 08/11/2017 1:46 PM CLINICAL HISTORY: left frontal massleft frontal mass, possible metastasis TECHNIQUE: Multiplanar, multisequenceMR imaging of the brain was performed, utilizing the following imaging sequences: Axial T1, T2, FLAIR, GRE, DWI/ADC; sagittal T1; postcontrast axial, sagittal, and coronal T1. COMPARISON: None available. FINDINGS: There is a 33 mm partially necrotic metastasis in the posterior left frontal lobe, with apparent invasion of the precentral gyrus. Along with surrounding edema, mass effect results in 7 mm midline shift, measured at the septi pellucidi. There is no parenchymal herniation or ventricular entrapment. There is a 12 mm necrotic metastasis with localized surrounding edema but no mass effect in the right precentral gyrus. There is no acute infarct, hematoma, hydrocephalus, or extra- axial collection. There is mild chronic microvascular ischemia in the supratentorial white matter and chandrakant, with dilated perivascular spaces and/or chronic lacunar infarcts in the deep lucas and dentate nuclei. There is a small chronic infarct in the right cerebellum. There is generalized parenchymal volume loss. Normal appearing flow-voids are present in the major intracranial vascular structures. The sellar and pineal regions, craniocervical junction, orbits, face, and skull base are unremarkable. 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 Signed: Freedom Duckwortheport Verified Date/Time: 08/11/2017 13:51:53 Reading Location: [facility] [id number] Neuro Reading Room Electronically signedby: FREEDOM DUCKWORTH M.D. on 08/11/2017 01:51 PMPOCT-GLUCOSE [id number] 12:16:00 Test Item Value Reference Range Comments POC-GLUCOSE METER (BEAKER) 190 mg/dL 70-[address] [facility] [address] [facility] (test mlka=1093) [facility] [address] BASIC METABOLIC [id number] 04:37:00 Test Item Value Reference Range Comments SODIUM (BEAKER) (test 133 meq/L 136-145 xkgc=162) POTASSIUM (BEAKER) (test 4.0 meq/L 3.5-5.1 lbpl=377) CHLORIDE (BEAKER) (test 101 meq/L 98-107 dnoi=244) CO2 (BEAKER) (test 22 meq/L 22-29 izrx=424) BLOOD UREA NITROGEN 8 mg/dL 7-21 (BEAKER) (test utza=143) CREATININE (BEAKER) (test 0.67 mg/dL 0.57-1.25 tpsb=444) GLUCOSE RANDOM (BEAKER) 139 mg/dL 70-105 (test jwsb=926) CALCIUM (BEAKER) (test 9.1 mg/dL 8.4-10.2 wkpt=928) EGFR (BEAKER) (test mL/min/1.73 sq m INSUFFICIENT CLINICAL DATA nkkj=8435) TO CALCULATE ESTIMATED GFR. Once on admission and Daily AM afterwardsOnce on admission and Daily AM afterwardsOnce on admission and Daily AM [id number] 04:36:00 Test Item Value Reference Range Comments PHOSPHORUS (BEAKER) (test cujd=060) 3.3 mg/dL 2.3-4.7 Once on admission and Daily AM afterwardsOnce on admission and Daily AM afterwardsOnce on admission and Daily AM [id number] 04:36:00 Test Item Value Reference Range Comments MAGNESIUM (BEAKER) (test xqlt=347) 2.1 mg/dL 1.6-2.6 Once on admission and Daily AM afterwardsOnce on admission and Daily AM afterwardsOnce on admission and Daily AM afterwardsHEPATIC FUNCTION [id number] 04:36:00 Test Item Value Reference Range Comments TOTAL PROTEIN (BEAKER) (test cyas=847) 6.7 gm/dL 6.0-8.3 ALBUMIN (BEAKER) (test tpqq=1849) 3.7 g/dL 3.5-5.0 BILIRUBIN TOTAL (BEAKER) (test ivdw=752) 0.9 mg/dL 0.2-1.2 BILIRUBIN DIRECT (BEAKER) (test agpj=373) 0.4 mg/dL 0.1-0.5 ALKALINE PHOSPHATASE (BEAKER) (test fmle=239) 114 U/L 40-150 AST (SGOT) (BEAKER) (test tlni=092) 19 U/L 5-34 ALT (SGPT) (BEAKER) (test hvkl=398) 22 U/L 6-55 Once on admission and Daily AM afterwardsOnce on admission and Daily AM afterwardsOnce on admission and Daily AM [id number] 04:15:00 Test Item Value Reference Range Comments PARTIAL THROMBOPLASTIN TIME (BEAKER) (test 32.2 seconds 22.5-36.0 gwun=600) PROTHROMBIN TIME/[id number] 04:14:00 Test Item Value Reference Range Comments PROTIME (BEAKER) (test wyef=565) 14.0 seconds 11.7-14.7 INR (BEAKER) (test sgpi=920) 1.1 <=5.9 RECOMMENDED COUMADIN/WARFARIN INR THERAPY RANGESSTANDARD DOSE: 2.0 - 3.0 Includes: PROPHYLAXIS forvenous thrombosis, systemic embolization; TREATMENT for venous thrombosis and/or pulmonary embolus.HIGH RISK: Target INR is 2.5-3.5 for patients with mechanical heart valves.CBC (HEMOGRAM ONLY)2017-08-11 03:50:00 Test Item Value Reference Range Comments WHITE BLOOD CELL COUNT (BEAKER) (test kvtu=502) 9.9 K/ L 3.5-10.5 RED BLOOD CELL COUNT (BEAKER) (test uhqt=053) 5.21 M/ L 4.63-6.08 HEMOGLOBIN (BEAKER) (test dakw=171) 16.8 GM/DL 13.7-17.5 HEMATOCRIT (BEAKER) (test jgzj=492) 50.0 % 40.1-51.0 MEAN CORPUSCULAR VOLUME (BEAKER) (test wfzo=080) 96.0 fL 79.0-92.2 MEAN CORPUSCULAR HEMOGLOBIN (BEAKER) (test 32.2 pg 25.7-32.2 esuk=411) MEAN CORPUSCULAR HEMOGLOBIN CONC (BEAKER) (test 33.6 GM/DL 32.3-36.5 cujt=776) RED CELL DISTRIBUTION WIDTH (BEAKER) (test 13.6 % 11.6-14.4 oade=349) PLATELET COUNT (BEAKER) (test yvff=531) 236 K/CU MM 150-450 MEAN PLATELET VOLUME (BEAKER) (test xbzo=898) 9.2 fL 9.4-12.4 NUCLEATED RED BLOOD CELLS (BEAKER) (test 0 /100 WBC 0-0 zeku=445)
[2018-01-22 03:46] LABS: Protime INR 1.49
[2018-01-22 04:13] LABS: Absolute Monocytes 0.9 K/uL (0.1-1.3); Absolute Neutrophil 17.7 K/uL (1.8-8.0); Basophils % 0.1 % (0-1.3); Eosinophils % 3.3 % (0-4.4); Hematocrit 33.6 % (39.6-49.0); Lymphocytes % 5.1 % (15.3-44.8); MCH 34.3 pg (27.0-35.0); MCV 93.8 fL (80-100); MPV 6.3 fL (7.6-11.3); Monocytes % 4.6 % (3.3-12.3); RBC Red Blood Cell Count 3.58 M/uL (4.33-5.43)
[2018-01-22 04:27] LABS: ALT/SGPT 16 U/L (12-78); AST/SGOT 13 U/L (15-37); Albumin 1.9 g/dL (3.4-5.0); Alkaline Phosphatase 89 U/L (45-117); BUN Blood Urea Nitrogen 9 mg/dL (7-18); Bicarbonate 24 mmol/L (21-32); Bilirubin Direct 0.4 mg/dL (0-0.2); Bilirubin Total 0.9 mg/dL (0.2-1.0); Glucose Level 126 mg/dL (74-106); Lipase 44 U/L (73-393); Magnesium 1.9 mg/dL (1.8-2.4); NT PRO-BNP 370 pg/mL (<125); Potassium 3.2 mmol/L (3.5-5.1); Protein, Total 5.7 g/dL (6.4-8.2); Sodium Level 129 mmol/L (136-145); Troponin (Emerg Dept Use Only) < 0.02 ng/mL (0.0-0.045)
[2018-01-22] MEDS ORDERED: FENTANYL CITR 100 MCG/2 ML ONE (04:51)
[2018-01-22 04:55] LABS: Blood Morphology Comment NOT SEEN (NOT SEEN); Platelet Estimate ADEQ
[2018-01-22] MEDS ORDERED: IPRATROPIUM BROM 0.5MG/2.5ML ONE (05:12)
[2018-01-22] MEDS ORDERED: ALBUTEROL 2.5 MG/3 ML NEB SOL ONE (05:12)
[2018-01-22] MEDS ORDERED: ACETAMINOPHEN 160 MG/5 ML UCUP ONE (05:12)
[2018-01-22] MEDS ORDERED: CEFTRIAXONE 500 MG/VIAL ONE (05:12)
[2018-01-22] MEDS ORDERED: AZITHROMYCIN 500 MG/250 ML BAG ONE (05:15)
[2018-01-22] MEDS ORDERED: CEFTRIAXONE 1000 MG/VIAL ONE (05:15)
[2018-01-22] MEDS ORDERED: NA CHLORIDE 0.9% 100 ML IV ONE (05:16)
[2018-01-22] MEDS ORDERED: MORPHINE 4 MG/ML SYR IV PRN (06:16)
[2018-01-22] MEDS ORDERED: ACETAMINOPHEN 500 MG TAB PO PRN (06:16)
[2018-01-22] MEDS ORDERED: ONDANSETRON 4 MG/2 ML VIAL IV PRN (06:16)
--- NOTE | 2018-01-22 06:16 | EDPHYS ---
Physician Documentation [facility] Name: Bharat Chavez Age: 62 yrs Sex: Male : 1955 Arrival Date: 01/22/2018 Time: 03:08 Bed 4 Private MD: ED Physician Gabriel Barriga HPI: 01/22 04:18 This 62 yrs old Male presents to ER via EMS with complaints of Shortness Of wa Breath. 04:18 The patient has shortness of breath at rest, and the patient has a history of lung CA wa with mets. . Onset: The symptoms/episode began/occurred gradually, 2 week(s) ago. Duration: The symptoms are continuous, and are steadily getting worse. The patient's shortness of breath is aggravated by nothing, is alleviated by nothing. Associated signs and symptoms: Pertinent positives: non-productive cough, Pertinent negatives: dizziness, fever, hemoptysis. Severity of symptoms: At their worst the symptoms were severe in the emergency department the symptoms are worse moderately. The patient has experienced similar episodes in the past, h/o lung CA. The patient has been recently seen by a physician: natividad d/kiera'jaren from [facility]. per family, noted at [facility] with same. pt on anti-coag. so decision made not to place drain. Historical: - Allergies: 03:15 "antibiotic"; lp1 - Home Meds: 04:22 levetiracetam 750 mg oral tab 1 tab 2 times per day [Active]; hyoscyamine sulfate 0.125 ea mg SL subl 0.125 mg as needed [Active]; lorazepam 0.5 mg Oral tab 1 tab 2 times per day for Anxiety [Active]; morphine 20 mg/5 mL (4 mg/mL) Oral soln 1 hours as needed for pain [Active]; promethazine 25 mg Oral tab 1 tab every 4 hours [Active]; bisacodyl 10 mg Rectal supp 1 suppository once daily [Active]; acetaminophen 650 mg Rectal supp 1 suppository every 4 hours [Active]; - PMHx: 03:15 Hypertension; pulmonary embolism; Stage 4 lung cancer; lp1 - PSHx: 03:15 Right hand surgery; lp1 - Immunization history:: Adult Immunizations up to date. - Social history:: Smoking status: Patient uses tobacco products, smokes two packs cigarettes per day. - Ebola Screening: : No symptoms or risks identified at this time. - Family history:: not pertinent. - Hospitalizations: : No recent hospitalization is reported. - History obtained from: son, daughter. ROS: 04:27 Constitutional: Negative for fever, chills, and weight loss, Eyes: Negative for injury, wa pain, redness, and discharge, ENT: Negative for injury, pain, and discharge, Neck: Negative for injury, pain, and swelling, Cardiovascular: Negative for chest pain, palpitations, and edema, Abdomen/GI: Negative for abdominal pain, nausea, vomiting, diarrhea, and constipation, Back: Negative for injury and pain, : Negative for injury, bleeding, discharge, and swelling, MS/Extremity: Negative for injury and deformity, Skin: Negative for injury, rash, and discoloration, Neuro: Negative for headache, weakness, numbness, tingling, and seizure, Psych: Negative for depression, anxiety, suicide ideation, homicidal ideation, and hallucinations. 04:27 Respiratory: Positive for cough, with no reported sputum, shortness of breath, at rest. Negative for hemoptysis. Exam: 04:28 Constitutional: This is a well developed, well nourished patient who is awake, alert, wa and in no acute distress. Head/Face: Normocephalic, atraumatic. Eyes: Pupils equal round and reactive to light, extra-ocular motions intact. Lids and lashes normal. Conjunctiva and sclera are non-icteric and not injected. Cornea within normal limits. Periorbital areas with no swelling, redness, or edema. ENT: Nares patent. No nasal discharge, no septal abnormalities noted. Tympanic membranes are normal and external auditory canals are clear. Oropharynx with no redness, swelling, or masses, exudates, or evidence of obstruction, uvula midline. Mucous membranes moist. Neck: Trachea midline, no thyromegaly or masses palpated, and no cervical lymphadenopathy. Supple, full range of motion without nuchal rigidity, or vertebral point tenderness. No Meningismus. Cardiovascular: Regular rate and rhythm with a normal S1 and S2. No gallops, murmurs, or rubs. Normal PMI, no JVD. No pulse deficits. Abdomen/GI: Soft, non-tender, with normal bowel sounds. No distension or tympany. No guarding or rebound. No evidence of tenderness throughout. Back: No spinal tenderness. No costovertebral tenderness. Full range of motion. Skin: Warm, dry with normal turgor. Normal color with no rashes, no lesions, and no evidence of cellulitis. MS/ Extremity: Pulses equal, no cyanosis. Neurovascular intact. Full, normal range of motion. Neuro: Awake and alert, GCS 15, oriented to person, place, time, and situation. Cranial nerves II-XII grossly intact. Motor strength 5/5 in all extremities. Sensory grossly intact. Cerebellar exam normal. Normal gait. 04:28 Respiratory: moderate respiratory distress is noted, Respirations: tachypnea, Breath sounds: rhonchi, are heard in the left posterior upper lobe and left posterior lower lobe. 04:28 Respiratory: Respiratory rate: elevated la Vital Signs: 03:12 BP 144 / 103; Pulse 137; Resp 28; Temp 97(O); Pulse Ox 98% on 35% Venturi mask; Weight lp1 53.07 kg; Height 5 ft. 5 in. (165.10 cm); 03:50 BP 102 / 86; Pulse 122; Resp 29; Pulse Ox 97% on Venturi mask; rr5 04:16 BP 109 / 94; Pulse 128; Resp 29; Pulse Ox 97% on Venturi mask; rr5 05:00 BP 130 / 93; Pulse 125; Resp 28; Pulse Ox 99% on Venturi mask; rr5 05:55 BP 123 / 85; Pulse 121; Resp 21; Pulse Ox 99% on Venturi mask; rr5 06:44 BP 125 / 88; Pulse 122; Resp 20; Pulse Ox 98% on Venturi mask; rr5 07:15 Pain 0/10; tw2 07:25 BP 106 / 83; Pulse 114; Resp 18; Temp 97.8(O); Pulse Ox 98% on 35% Venturi mask; tw2 08:13 BP 115 / 79; Pulse 108; Resp 13; Pulse Ox 100% on 35% Venturi mask; tw2 03:12 Body Mass Index 19.47 (53.07 kg, 165.10 cm) lp1 [place] Coma Score: 03:15 Eye Response: spontaneous(4). Verbal Response: oriented(5). Motor Response: obeys rr5 commands(6). Total: 15. MDM: 03:09 Patient medically screened. wa 04:29 Differential diagnosis: CHF exacerbation, Chronic Obstructive Pulmonary Disease wa pneumonia, pulmonary edema, Pulmonary Embolism reactive airway disease, Unstable Angina. 06:00 Data reviewed: vital signs, nurses notes, lab test result(s), EKG, radiologic studies. la Test interpretation: by ED physician or midlevel provider: EKG: sinus tach at 138. non-specific ST-T changes. . 06:04 Test interpretation: by ED physician or midlevel provider: CXR: complete white out of L wa lung. total effusion. CT chest: complete atelectasis of the L lung with large L pleural effusion. 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 . 06:10 Response to treatment: the patient's symptoms have markedly improved after treatment, wa improved with oxygen tolerance by IV dose of fentanyl. pt calmer. spoke with his doctor, Dr. Lemos. at [facility]. no beds. [facility] to no avail. will admit in this hsp pending bed opening at [facility]. discussed and accepted by Dr. Amaro. Physician consultation: Bart Amaro MD. 01/22 03:13 Order name: Blood Culture Adult (2) la 01/22 03:13 Order name: BMP; Complete Time: 05:21 la 01/22 03:13 Order name: CBC with Diff; Complete Time: 05: la 01/22 03:13 Order name: Hepatic Function; Complete Time: 05:21 la 01/22 03:13 Order name: Lipase; Complete Time: 05:21 la 01/22 03:13 Order name: Magnesium; Complete Time: 05:21 la 01/22 03:13 Order name: NT PRO-BNP; Complete Time: 05:21 la 01/22 03:13 Order name: PT-INR; Complete Time: 05:21 la 01/22 03:13 Order name: Troponin (emerg Dept Use Only); Complete Time: 05:21 la 01/22 04:23 Order name: Manual Differential; Complete Time: 05:20 EDMS 01/22 06:19 Order name: CBC with Automated Diff EDMS 01/22 06:19 Order name: CBC with Automated Diff EDMS 01/22 06:19 Order name: Comprehensive Metabolic Panel EDKS 01/22 03:13 Order name: XRAY CXR (1 view) la 01/22 03:13 Order name: EKG; Complete Time: 03:14 la 01/22 03:13 Order name: Cardiac monitoring; Complete Time: 03:17 la 01/22 03:13 Order name: EKG - Nurse/Tech; Complete Time: 03:17 la 01/22 03:13 Order name: IV Saline Lock; Complete Time: 03:48 la 01/22 03:13 Order name: Labs collected and sent; Complete Time: 03:48 la 01/22 03:13 Order name: O2 Per Protocol; Complete Time: 03:29 la 01/22 03:48 Order name: CT Chest Wo Con la 01/22 06:19 Order name: CONS Pharmacy Consult EDKS 01/22 06:19 Order name: Heart Healthy EDKS 01/22 06:19 Order name: Comprehensive Metabolic Panel [facility] 01/22 03:13 Order name: O2 Sat Monitoring; Complete Time: 03:29 la Administered Medications: 04:25 CANCELLED (Physician Discretion): Ativan 0.5 mg IVP once jd3 05:00 Drug: fentaNYL (PF) 50 mcg {Note: bp 130/93 o2 sat 99%.} Route: IVP; Site: left rr5 antecubital; 06:13 Follow up: Response: No adverse reaction rr5 05:20 Drug: Rocephin - (cefTRIAXone) 2 grams Route: IVPB; Infused Over: 30 mins; Site: left rr5 antecubital; 05:50 Follow up: IV Status: Completed infusion; IV Intake: 100ml rr5 06:10 Follow up: Response: No adverse reaction rr5 06:11 Drug: Zithromax 500 mg Route: IVPB; Infused Over: 1 hrs; Site: left antecubital; rr5 07:15 Follow up: Response: No adverse reaction; IV Status: Completed infusion tw2 06:44 Drug: fentaNYL (PF) 50 mcg {Note: bp 125/88.} Route: IVP; Site: left antecubital; rr5 07:15 Follow up: Pain 0/10 Adult; Response: No adverse reaction; Pain is decreased tw2 Disposition: 01/22/18 06:15 Hospitalization ordered by Gabriel Barriga for Inpatient Admission. Preliminary diagnosis are Acute dyspnea, Large Left side pleural effusion with associated atelectasis. - Bed requested for Telemetry/MedSurg (Inpatient). - Status is Inpatient Admission. tw2 - Condition is Fair. - Problem is an acute exacerbation. - Symptoms have improved. UTI on Admission? No Signatures: Dispatcher [employer] EDMS Rosi Marques, RN RN lp1 Chantel Spangler, RN RN cg Nimco Solis RN RN tw2 Mel Kumari RN Gabriel Cassidy ea, MD MD wa Davies, Jonathon, RN RN jd3 Jeovany Trejo RN RN rr5 Corrections: (The following items were deleted from the chart) 04:22 03:19 Arterial Blood Gas+RC.LAB.BRZ ordered. EDKS EDMS 04:22 03:15 Home Meds: Unable to obtain; lp1 keila 04:25 04:25 Ativan 0.5 mg IVP once ordered. jd3 jd3 06:27 06:15 Hospitalization Ordered by Gabriel Barriga MD for Inpatient Admission. Preliminary cg diagnosis is Acute dyspnea; Large Left side pleural effusion with associated atelectasis. Bed requested for Telemetry/MedSurg (Inpatient). Status is Inpatient Admission. Condition is Fair. Problem is an acute exacerbation. Symptoms have improved. UTI on Admission? No. matt 06:35 06:27 01/22/2018 06:15 Hospitalization Ordered by Gabriel Barriga MD for Inpatient cg Admission. Preliminary diagnosis is Acute dyspnea; Large Left side pleural effusion with associated atelectasis. Bed requested for Telemetry/MedSurg (Inpatient). Status is Inpatient Admission. Condition is Fair. Problem is an acute exacerbation. Symptoms have improved. UTI on Admission? No. marily 08:05 06:35 01/22/2018 06:15 Hospitalization Ordered by Gabriel Barriga MD for Inpatient cg Admission. Preliminary diagnosis is Acute dyspnea; Large Left side pleural effusion with associated atelectasis. Bed requested for Telemetry/MedSurg (Inpatient). Status is Inpatient Admission. Condition is Fair. Problem is an acute exacerbation. Symptoms have improved. UTI on Admission? No. marily 08:40 08:05 01/22/2018 06:15 Hospitalization Ordered by Gabriel Barriga MD for Inpatient tw2 Admission. Preliminary diagnosis is Acute dyspnea; Large Left side pleural effusion with associated atelectasis. Bed requested for Telemetry/MedSurg (Inpatient). Status is Inpatient Admission. Condition is Fair. Problem is an acute exacerbation. Symptoms have improved. UTI on Admission? No. cg
--- NOTE | 2018-01-22 06:16 | ER ---
Nurse's Notes [facility] Name: Bharat Chavez Age: 62 yrs Sex: Male : 1955 Arrival Date: 01/22/2018 Time: 03:08 Bed 4 Private MD: Diagnosis: Acute dyspnea;Large Left side pleural effusion with associated atelectasis Presentation: 01/22 03:09 Presenting complaint: EMS states: Shortness of breath after home O2 ran out; Patient lp1 was discharged from hospital yesterday afternoon with diagnosis of Stage 4 lung cancer and bilateral pulmonary embolisms; Patient uses home O2 at 6L via nasal cannula. Transition of care: patient was not received from another setting of care. Onset of symptoms was January 22, 2018. Risk Assessment: Do you want to hurt yourself or someone else? Patient reports no desire to harm self or others. Initial Sepsis Screen: Does the patient meet any 2 criteria? No. Patient's initial sepsis screen is negative. Does the patient have a suspected source of infection? No. Patient's initial sepsis screen is negative. Care prior to arrival: Oxygen administered. via a non-rebreather mask. 03:09 Method Of Arrival: EMS: [facility] lp1 03:09 Acuity: ELIZABET 2 lp1 Triage Assessment: 04:00 Respiratory: Reports shortness of breath Onset: The symptoms/episode began/occurred rr5 suddenly, the patient has moderate shortness of breath. 04:00 General: Appears ill, Behavior is calm, cooperative, appropriate for age. rr5 Historical: - Allergies: 03:15 "antibiotic"; lp1 - Home Meds: 04:22 levetiracetam 750 mg oral tab 1 tab 2 times per day [Active]; hyoscyamine sulfate 0.125 ea mg SL subl 0.125 mg as needed [Active]; lorazepam 0.5 mg Oral tab 1 tab 2 times per day for Anxiety [Active]; morphine 20 mg/5 mL (4 mg/mL) Oral soln 1 hours as needed for pain [Active]; promethazine 25 mg Oral tab 1 tab every 4 hours [Active]; bisacodyl 10 mg Rectal supp 1 suppository once daily [Active]; acetaminophen 650 mg Rectal supp 1 suppository every 4 hours [Active]; - PMHx: 03:15 Hypertension; pulmonary embolism; Stage 4 lung cancer; lp1 - PSHx: 03:15 Right hand surgery; lp1 - Immunization history:: Adult Immunizations up to date. - Social history:: Smoking status: Patient uses tobacco products, smokes two packs cigarettes per day. - Ebola Screening: : No symptoms or risks identified at this time. - Family history:: not pertinent. - Hospitalizations: : No recent hospitalization is reported. - History obtained from: son, daughter. Screenin:17 Abuse screen: Denies threats or abuse. Denies injuries from another. Nutritional lp1 screening: No deficits noted. Tuberculosis screening: No symptoms or risk factors identified. Fall Risk Total Hummel Fall Scale indicates High Risk Score (45 or more points). Fall prevention measures have been instituted. Side Rails Up X 2 Frequent Obs/Assessments Occuring As available patient and family educated on Fall Prevention Program and Strategies. Assessment: 03:15 General: Appears uncomfortable, ill, Behavior is calm, cooperative, appropriate for age.rr5 03:15 Pain: Denies pain. Neuro: Level of Consciousness is awake, alert, obeys commands, rr5 Oriented to person, place, time. Cardiovascular: Rhythm is sinus tachycardia. Respiratory: Airway is patent Respiratory effort is labored, Respiratory pattern is tachypnea. GI: No signs and/or symptoms were reported involving the gastrointestinal system. : No signs and/or symptoms were reported regarding the genitourinary system. EENT: No signs and/or symptoms were reported regarding the EENT system. Derm: Skin is intact, Skin is dry, Rash noted that is red. 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 03:15 Respiratory: Breath sounds with crackles. rr5 04:00 Reassessment: no complaints made. dr. sauceda coordinating to other facility for rr5 transfer. 05:15 Reassessment: Patient appears in no apparent distress at this time. Patient and/or rr5 family updated on plan of care and expected duration. Pain level reassessed. started antibiotic ceftriaxone as initial dose. patient and the family cannot recall the name of antibiotic that cause his rashes. 06:11 Reassessment: no adverse reaction from the ceftriaxone infusion noted. azithromycin IV rr5 started as initial dose. 06:44 Reassessment: patient is restless, asking when he will go upstair,ED provider aware rr5 stat medication given. 07:10 General: Appears comfortable, Behavior is calm, cooperative. Pain: Denies pain. Neuro: aa5 Level of Consciousness is awake, alert, obeys commands, Oriented to person, place, time, situation, Document Improvement Specialist are weak on left Pt unable to core shaper with right hand, pt states "I had an infection on my right hand and they had to do surgery a few months ago". Moves all extremities. Speech is normal, Facial symmetry appears normal, Pupils are PERRLA. Cardiovascular: Heart tones S1 S2 present Edema is absent. Rhythm is sinus tachycardia. Respiratory: Airway is patent Respiratory effort is shallow, Respiratory pattern is regular, symmetrical, Breath sounds with crackles bilaterally. GI: Abdomen is round Bowel sounds present X 4 quads. Abd is non tender X 4 quads. : No signs and/or symptoms were reported regarding the genitourinary system. EENT: No signs and/or symptoms were reported regarding the EENT system. Derm: Skin is pink, warm \\T\\ dry. Rash noted that is red, on chest and abdomen Pt's family states "he got that rash when they gave him an antibiotic at [facility] and it's still there". Rash is not raised. 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 07:26 Reassessment: Patient appears in no apparent distress at this time. Patient and/or tw2 family updated on plan of care and expected duration. Pain level reassessed. family at bedside wishes pt to be admitted, would like catheter placed to drain fluids off his lungs per conversation with Dr. Amaro, pt will be admitted to regular floor room. 08:13 Reassessment: Patient appears in no apparent distress at this time. Patient and/or tw2 family updated on plan of care and expected duration. Pain level reassessed. Vital Signs: 03:12 BP 144 / 103; Pulse 137; Resp 28; Temp 97(O); Pulse Ox 98% on 35% Venturi mask; Weight lp1 53.07 kg; Height 5 ft. 5 in. (165.10 cm); 03:50 BP 102 / 86; Pulse 122; Resp 29; Pulse Ox 97% on Venturi mask; rr5 04:16 BP 109 / 94; Pulse 128; Resp 29; Pulse Ox 97% on Venturi mask; rr5 05:00 BP 130 / 93; Pulse 125; Resp 28; Pulse Ox 99% on Venturi mask; rr5 05:55 BP 123 / 85; Pulse 121; Resp 21; Pulse Ox 99% on Venturi mask; rr5 06:44 BP 125 / 88; Pulse 122; Resp 20; Pulse Ox 98% on Venturi mask; rr5 07:15 Pain 0/10; tw2 07:25 BP 106 / 83; Pulse 114; Resp 18; Temp 97.8(O); Pulse Ox 98% on 35% Venturi mask; tw2 08:13 BP 115 / 79; Pulse 108; Resp 13; Pulse Ox 100% on 35% Venturi mask; tw2 03:12 Body Mass Index 19.47 (53.07 kg, 165.10 cm) lp1 [place] Coma Score: 03:15 Eye Response: spontaneous(4). Verbal Response: oriented(5). Motor Response: obeys rr5 commands(6). Total: 15. ED Course: 03:08 Patient arrived in ED. lp1 03:09 Gabriel Sauceda MD is Attending Physician. wa 03:12 Triage completed. lp1 03:13 Arm band placed on left wrist. lp1 03:13 EKG done, reviewed by Gabriel Sauceda MD. oe 03:15 Head of bed elevated. rr5 03:15 Inserted saline lock: 20 gauge in left hand, using aseptic technique. rr5 03:17 Patient has correct armband on for positive identification. Placed in gown. Bed in low lp1 position. Side rails up X2. court monitor on. Pulse ox on. NIBP on. 03:45 Inserted saline lock: 18 gauge in left antecubital area, using aseptic technique. by rr5 jaron LI. 03:48 Jeovany Trejo, GUILLERMO is Primary Nurse. rr5 03:51 Radiology exam delayed due to IV insertion attempt and/or patient not having kw appropriate IV at this time. 03:51 X-ray completed. Portable x-ray completed in exam room. Patient tolerated procedure kw well. 03:52 XRAY CXR (1 view) In Process Unspecified. EDMS 04:06 initiated transfer to [facility]. denied due to zero beds. ms 04:26 Initiated Transfer to [facility]. Denied at [facility] due zero beds at facility. ms 04:38 Initiated Transfer to [place]. Denied at [place] Due to Zero Bed available. ms 04:48 CT Chest Wo Con In Process Unspecified. EDMS 06:13 Gabriel Sauceda MD is Hospitalizing Provider. 07:25 Primary Nurse role handed off by Jeovany Trejo RN tw2 07:25 Nimco Solis RN is Primary Nurse. tw2 08:11 No provider procedures requiring assistance completed. Patient admitted, IV remains in tw2 place. 08:22 Awaiting: attempted to call report, was told it was Pete, on hold 10 minutes, called tw2 back again to speak with GUILLERMO [facility]. Administered Medications: 04:25 CANCELLED (Physician Discretion): Ativan 0.5 mg IVP once jd3 05:00 Drug: fentaNYL (PF) 50 mcg {Note: bp 130/93 o2 sat 99%.} Route: IVP; Site: left rr5 antecubital; 06:13 Follow up: Response: No adverse reaction rr5 05:20 Drug: Rocephin - (cefTRIAXone) 2 grams Route: IVPB; Infused Over: 30 mins; Site: left rr5 antecubital; 05:50 Follow up: IV Status: Completed infusion; IV Intake: 100ml rr5 06:10 Follow up: Response: No adverse reaction rr5 06:11 Drug: Zithromax 500 mg Route: IVPB; Infused Over: 1 hrs; Site: left antecubital; rr5 07:15 Follow up: Response: No adverse reaction; IV Status: Completed infusion tw2 06:44 Drug: fentaNYL (PF) 50 mcg {Note: bp 125/88.} Route: IVP; Site: left antecubital; rr5 07:15 Follow up: Pain 0/10 Adult; Response: No adverse reaction; Pain is decreased tw2 Intake: 05:50 IV: 100ml; Total: 100ml. rr5 Outcome: 06:15 Decision to Hospitalize by Provider. 08:28 Admitted to Med/surg accompanied by tech, via stretcher, room 201, with oxygen, with tw2 chart, Report called to Guillermo Freeman 08:28 Condition: stable 08:28 Instructed on the need for admit. 08:40 Patient left the ED. tw2 Signatures: Dispatcher [facility] Destiny Solis ms, Gillian, RN RN aa5 Shazia Vu Laura, RN RN lp1 Nimco Solis RN RN tw2 Edward Parikh Elena RN RN ea Gabriel Sauceda MD MD wa Roque, Raymond, RN RN rr5 Henok Maldonado RN jd3 Corrections: (The following items were deleted from the chart) 04:22 03:15 Home Meds: Unable to obtain; tino pedraza
[2018-01-22] MEDS: IPRATROPIUM BROM 0.5MG/2.5ML NEB SCH ×4 (07:00→20:16)
[2018-01-22] MEDS ORDERED: NA CHLORIDE 0.9% 1,000 ML IV SCH (07:00)
[2018-01-22] MEDS ORDERED: ALBUTEROL 2.5 MG/3 ML NEB SOL NEB SCH (07:00)
--- NOTE | 2018-01-22 07:05 | EKG ---
Test Date: 2018-01-22 Test Time: 03:03:57 Battery Hand: CAROLINE MEASUREMENT RESULTS: Intervals: Rate: 138 DE: 104 QRSD: 72 QT: 366 QTc: 554 Wisdom: P: DE: 104 QRS: 69 T: 62 INTERPRETIVE STATEMENTS: Sinus tachycardia with short DE Nonspecific T wave abnormality Abnormal ECG Compared to ECG 08/10/2017 21:09:29 Short DE interval now present T-wave abnormality now present Sinus rhythm no longer present Sinus arrhythmia no longer present Electronically Signed On 01-22-18 07:05:14 [employer] by Francesco Faith
--- NOTE | 2018-01-22 07:11 | RAD REPORT ---
EXAM DESCRIPTION: RAD - Chest Single View - 01/22/2018 3:52 am CLINICAL HISTORY: Chest pain, shortness of breath, history of recent diagnosis for stage IV lung can cer and bilateral pulmonary embolism COMPARISON: July 2017 TECHNIQUE: AP portable chest image was obtained 0343 hours . FINDINGS: There is complete opacification of the left hemithorax. This is likely a combination of la rge pleural effusion, tumor mass and atelectasis. No significant tracheal shift. Motion degradation l imits the right lung field assessment. No large mass. Minimal right base interstitial infiltrate or e pawel are not excluded. Heart size is mostly obscured by the left hemithorax opacification. No right-s ided pleural effusion. No pneumothorax. No acute bony abnormality seen. No acute aortic findings susp ected. IMPRESSION: Complete left hemithorax opacification from pleural effusion, atelectasis and probable m ass lesion given the history. Mildly prominent right lower lung field interstitial markings mostly due to motion. Minimal interstit ial edema or infiltrate would be possible.
--- NOTE | 2018-01-22 07:21 | RAD REPORT ---
EXAM DESCRIPTION: CT - Thorax Wo Con - 01/22/2018 5:15 am CLINICAL HISTORY: Shortness of breath, history of stage IV lung cancer and pulmonary embolism A preliminary report was provided at the time of the study and reviewed prior to final report. COMPARISON: Portable chest January 22 TECHNIQUE: Axial 5 mm thick images of the chest were obtained without IV contrast. All CT scans are performed using dose optimization technique as appropriate and may include automated exposure control or mA/KV adjustment according to patient size. FINDINGS: Small right pleural effusion is present. There are several small 10 mm or less pulmonary n odules scattered in the right lung field. Minimal scarring and atelectasis present in the posterior g utter on the right. Large pleural effusion fills and expands the left hemithorax. There is a mild [id number] mediastin al shift. Near complete left upper lobe atelectasis is present. Mass and atelectasis filled the left lower lobe. Left hilar mass density is present and there is a large 7 centimeter subcarinal mass. Add itional small mediastinal lymph nodes are present. Findings match the provided history of stage IV jose ramon ng cancer. No pneumothorax. No gross aortic or pulmonary artery finding suspected. Assessment is limited in the absence of IV co ntrast. Trace amount of pericardial thickening or effusion. No chest wall mass or abnormal axillary lymphadenopathy. IMPRESSION: Large mediastinal, hilar and left lower lobe mass lesion matching the stage IV lung canc er history. Hilar and left lower lobe mass margins not clearly delineated on noncontrast imaging. Near complete left upper lobe atelectasis. Large pleural fluid collection fills the left hemithorax. Multiple small metastatic nodules scattered in the right lung field with minimal right pleural effusi on.
--- NOTE | 2018-01-22 13:32 | P.HP ---
Certification for Inpatient Patient admitted to: Inpatient With expected LOS: >2 Midnights Patient will require the following post-hospital care: Hospice Practitioner: I am a practitioner with admitting privileges, knowledge of patient current condition, hospital course, and medical plan of care. Services: Services provided to patient in accordance with Admission requirements found in Title 42 Section 412.3 of the Code of Federal Regulations Patient History Date of Service: 01/22/18 Reason for admission: Patient requiring PleurX catheter History of Present Illness: Patient is a 62-year-old gentleman who came to the hospital after just relieving [facility] in [place]. He was worked up extensively for metastatic lung cancer. Patient has a malignant pleural effusion. It is looks to have sonali out the whole left side. The fluid will build up persistently going forward. Patient has been on Eliquis for pulmonary embolism. The catheter was scheduled to be placed in a week after he got off the Eliquis. The family got home and they did not have oxygen. His O2 sats were town so they brought him into the emergency room. When he arrived to the emergency room the medical supply company dropped off oxygen at their house. At this time his left lung has been sonali out. So plan should be to do a PleurX catheter and he can go home with this and continue palliative care with a med hospice. Allergies No Known Allergies Allergy (Unverified 08/11/17 01:20) - Past Medical/Surgical History Has patient received pneumonia vaccine in the past: No -: htn -: lung cancer -: BRONCH - Family History Father Family History: Reviewed- Non-Contributory - Social History Smoking Status: Current every day smoker Place of Residence: Home Review of Systems 10-point ROS is otherwise unremarkable Physical Examination - Vital Signs Temperature: 96.8 F Blood Pressure: 124/75 Pulse: 114 Respirations: 18 Pulse Ox (%): 97 - Physical Exam General: Alert, In no apparent distress, Oriented x1 HEENT: Atraumatic, PERRLA, Mucous membr. moist/pink, EOMI, Sclerae nonicteric Neck: Supple, 2+ carotid pulse no bruit, No LAD, Without JVD or thyroid abnormality Respiratory: Diminished Cardiovascular: Regular rate/rhythm, Normal S1 S2, No murmurs Gastrointestinal: Normal bowel sounds, Rigidity, Distended, Ascites, Tenderness Musculoskeletal: No clubbing, No swelling, No tenderness Integumentary: No rashes Neurological: Normal gait, Normal speech, Normal strength at 5/5 x4 extr, Normal tone, Normal affect Lymphatics: No axilla or inguinal lymphadenopathy - Studies Laboratory Data (last 24 hrs) 01/22/18 03:40: PT 17.6 H, INR 1.49 01/22/18 03:40: WBC 20.4 H*, Hgb 12.3 L, Hct 33.6 L, Plt Count 321 01/22/18 03:40: Sodium 129 L, Potassium 3.2 L, BUN 9, Creatinine 0.40 L, Glucose 126 H, Magnesium 1.9, Total Bilirubin 0.9, AST 13 L, ALT 16, Alkaline Phosphatase 89, Lipase 44 L Microbiology Data (last 24 hrs): 01/22/18 03:30 Blood - Blood Anaerobic Blood Culture - Final Assessment & Plan - Problems (Diagnosis) (1) Malignant pleural effusion Current Visit: Yes Status: Acute (2) Metastatic lung cancer (metastasis from lung to other site) Current Visit: Yes Status: Acute (3) Palliative care patient Current Visit: Yes Status: Acute - Plan PLAN: 1. PALLIATIVE CARE 2. PULMONARY CONSULTATION FOR PLEURX CATHETER PLACEMENT 3. PAIN CONTROL 4. MEDICINE FOR AGITATION 5. O2 PER PROTOCOL 6. PATIENT SHOULD BE STABLE FOR DISCHARGE TO THE HOME OXYGEN HAS ARRIVED ONCE THE PLEURX CATHETER IS IN PLACE - Advance Directives Does patient have a Living Will: No Does patient have a Durable POA for Healthcare: No - Code Status/Comfort Care Code Status Assessed: Yes Code Status: Do Not Resuscitate Comfort Measures: Palliative Care Critical Care: No Time Spent Managing PTS Care (In Minutes): 45
[2018-01-23] MEDS: IPRATROPIUM BROM 0.5MG/2.5ML NEB SCH ×3 (00:30→13:27)
[2018-01-23] MEDS ORDERED: GUAIFENESIN/CODEINE 5ML UCUP PO PRN (00:38)
[2018-01-23 00:43] LABS: Urine Appearance CLEAR; Urine Bilirubin NEGATIVE (NEG); Urine Blood 1+ (NEG); Urine Color YELLOW; Urine Glucose NEGATIVE (NEG); Urine Protein NEGATIVE (NEG); Urine pH 6.5 (5.0-7.0)
[2018-01-23 00:44] LABS: Urine Microscopic Reflex ORDER UMIC
[2018-01-23 01:09] LABS: Urine Bacteria <20 /HPF (NONE SEEN); Urine Culture Reflex Order NOT NEEDED; Urine RBC <5 /HPF (NONE SEEN)
[2018-01-23 06:54] LABS: Absolute Lymphocytes (CBC) 1.5 K/uL (0.7-4.9); Absolute Monocytes 0.7 K/uL (0.1-1.3); Absolute Neutrophil 12.3 K/uL (1.8-8.0); Basophils % 0.7 % (0-1.3); Eosinophils % 7.3 % (0-4.4); Hematocrit 28.8 % (39.6-49.0); Lymphocytes % 9.8 % (15.3-44.8); MCH 35.5 pg (27.0-35.0); MCV 94.9 fL (80-100); MPV 6.6 fL (7.6-11.3); Monocytes % 4.2 % (3.3-12.3); RBC Red Blood Cell Count 3.03 M/uL (4.33-5.43)
[2018-01-23 07:14] LABS: ALT/SGPT 16 U/L (12-78); AST/SGOT 16 U/L (15-37); Albumin 1.5 g/dL (3.4-5.0); Alkaline Phosphatase 71 U/L (45-117); BUN Blood Urea Nitrogen 8 mg/dL (7-18); Bicarbonate 26 mmol/L (21-32); Bilirubin Total 0.7 mg/dL (0.2-1.0); Glucose Level 89 mg/dL (74-106); Protein, Total 4.7 g/dL (6.4-8.2); Sodium Level 135 mmol/L (136-145)
[2018-01-23 07:18] LABS: Potassium 2.9 mmol/L (3.5-5.1)
--- NOTE | 2018-01-23 07:37 | P.CNS ---
Date of Consult: 01/23/18 Reason for Consult: Pleural effusion Chief Complaint: Shortness of breath and pleural effusion History of Present Illness: Patient is 62 years of age he has terminal ileal from a metastatic lung cancer apparently he was at [facility] he did have a significant effusion on the left side and was discharged patient refused any catheters the patient became progressively worse more shortness of breath chest discomfort admitted from the emergency room he has a massive effusion on the left side apparently has metastatic disease to the liver patient was in hospice care Allergies No Known Allergies Allergy (Unverified 08/11/17 01:20) Home Medications: Acetaminophen [Tylenol] 650 mg PO Q6H PRN 01/22/18 LORazepam [Ativan] 0.5 mg PO BID PRN 01/22/18 Levetiracetam [Keppra] 750 mg PO BID 01/22/18 Lisinopril [Prinivil] 10 mg PO DAILY 01/22/18 Prochlorperazine [Compazine] 5 mg PO Q6H PRN 01/22/18 - Past Medical/Surgical History -: htn -: lung cancer -: BRONCH - Family History Father Family History: Reviewed- Non-Contributory - Social History Smoking Status: Current every day smoker Place of Residence: Home Review of Systems General: Weakness Respiratory: Shortness of Breath Cardiovascular: Chest Pain Physical Examination Temp Pulse Resp BP Pulse Ox 97.3 F 105 H 18 117/75 98 01/23/18 04:00 01/23/18 04:00 01/23/18 04:00 01/23/18 04:00 01/23/18 04:00 General: Alert, Oriented x3, Cooperative HEENT: Atraumatic Neck: Supple Respiratory: Diminished (Absent breath sounds on the left side) Cardiovascular: No edema, Regular rate/rhythm, Normal S1 S2 - Problems (1) Malignant pleural effusion Current Visit: Yes Status: Acute Plan: Patient is 62 years of age admitted with a massive pleural effusion on the left side most likely it is malignant he has metastatic disease stage IV lung lung cancer patient was on hospice care which was revoked by the relatives plan to do a therapeutic thoracentesis for palliative care and then discharged home under hospice care patient is has no insurance would be difficult to take care of thorax catheter is white count is elevated electrolyte abnormality
[2018-01-23] MEDS ORDERED: VITAMIN K (ADULT) 10 MG/ML SQ STA (07:38)
[2018-01-23] MEDS ORDERED: ALBUTEROL 2.5 MG/3 ML NEB SOL NEB PRN (07:38)
[2018-01-23 07:45] LABS: Blood Morphology Comment NOT SEEN (NOT SEEN); Platelet Estimate ADEQ; Urine White Blood Cell Casts OK
--- NOTE | 2018-01-23 12:23 | RAD REPORT ---
EXAM DESCRIPTION: US - Thoracentesis w/ US Guide - 01/23/2018 11:59 am CLINICAL HISTORY: Malignancy of the left chest with abnormal mediastinal lymphadenopathy. Large left pleural effusion with complete left hemithorax opacification on plain film. COMPARISON: CT chest January 22, portable chest January 22 FINDINGS: Patient presents for ultrasound-guided therapeutic and diagnostic thoracentesis of the lef t-side pleural fluid. Prior imaging was reviewed. The procedure, risks and alternatives were discusse d with the patient in detail. Oral and written consent were obtained. The third alliance party translation ser vice was utilized. Preliminary imaging of the posterior left chest was performed. Large pleural effusion was identified. Access site was selected. Posterior left soft tissues were prepped and draped in the usual sterile f ashion. Skin and deeper tissues down to the pleura anesthetized with 1% lidocaine. Under direct sonog raphic visualization, thoracentesis catheter was advanced into the chest. Proper placement was confir med. Approximately 25 mL of pleural fluid retained for requested studies. 1 liter of pleural fluid dr ained. Catheter was removed and sterile bandage placed at the puncture site. Post thoracentesis chest film was pending. Patient tolerated the procedure without immediate complications. Patient was transferred back to the floor for continued care. IMPRESSION: Ultrasound-guided left-sided thoracentesis performed as detailed. Retained fluid was sen t to pathology for requested studies.
[2018-01-23] MEDS: KCL 20 MEQ/100 mL IVPB 20 MEQ/100 ML BAG IV SCH ×2 (13:33→16:00)
[2018-01-23] MEDS ORDERED: NA CHLORIDE 0.9% 0 ML ONE (13:38)
[2018-01-23] MEDS ORDERED: DIPHENHYDRAMINE 25 MG TAB/CAP PO ONE (13:52)
[2018-01-23] MEDS ORDERED: DIPHENHYDRAMINE 12.5MG/5ML LIQ PO ONE (13:52)
[2018-01-23 15:01] LABS: Body Fluid WBC 825 /mm^3
[2018-01-23 15:59] LABS: Appearance SLT. TURBID (CLEAR); Body Fluid Source PLEURAL; Color of fluid Yellow (COLORLESS)
--- NOTE | 2018-01-23 16:27 | P.SSS ---
Patient History Date of Service: 01/23/18 Reason for admission: Shortness of breath and pleural effusion History of Present Illness: Patient is a 62-year-old gentleman who came to the hospital after just relieving [facility] in [place]. He was worked up extensively for metastatic lung cancer. Patient has a malignant pleural effusion. It is looks to have sonali out the whole left side. The fluid will build up persistently going forward. Patient has been on Eliquis for pulmonary embolism. The catheter was scheduled to be placed in a week after he got off the Eliquis. The family got home and they did not have oxygen. His O2 sats were town so they brought him into the emergency room. When he arrived to the emergency room the medical supply company dropped off oxygen at their house. At this time his left lung has been sonali out. So plan should be to do a PleurX catheter and he can go home with this and continue palliative care with a [facility] hospice. Allergies No Known Allergies Allergy (Unverified 08/11/17 01:20) Home Medications: Acetaminophen [Tylenol] 650 mg PO Q6H PRN 01/22/18 LORazepam [Ativan*] 0.5 mg PO BID PRN 01/22/18 Levetiracetam [Keppra] 750 mg PO BID 01/22/18 Lisinopril [Prinivil*] 10 mg PO DAILY 01/22/18 Prochlorperazine [Compazine*] 5 mg PO Q6H PRN 01/22/18 - Past Medical/Surgical History Has patient received pneumonia vaccine in the past: No -: htn -: lung cancer -: BRONCH - Social History Smoking Status: Current every day smoker Place of Residence: Home Review of Systems 10-point ROS is otherwise unremarkable Physical Examination - Vital Signs Temperature: 97.3 F Blood Pressure: 125/75 Pulse: 104 Respirations: 20 Pulse Ox (%): 96 - Physical Exam General: Alert, In no apparent distress HEENT: Atraumatic, PERRLA, Mucous membr. moist/pink, EOMI, Sclerae nonicteric Neck: Supple, 2+ carotid pulse no bruit, No LAD, Without JVD or thyroid abnormality Respiratory: Clear to auscultation bilaterally, Normal air movement Cardiovascular: Regular rate/rhythm, Normal S1 S2 Gastrointestinal: Normal bowel sounds, No tenderness Musculoskeletal: No tenderness Integumentary: No rashes Neurological: Normal gait, Normal speech, Normal strength at 5/5 x4 extr, Normal tone, Normal affect Lymphatics: No axilla or inguinal lymphadenopathy - Studies Microbiology Data (last 24 hrs): 01/22/18 03:30 Blood - Blood Anaerobic Blood Culture - Final - Diagnosis (Problem(s)) (1) Malignant pleural effusion Onset Date: 01/23/18 Current Visit: Yes Status: Acute (2) Metastatic lung cancer (metastasis from lung to other site) Onset Date: 01/23/18 Current Visit: Yes Status: Acute (3) Palliative care patient Onset Date: 01/23/18 Current Visit: Yes Status: Acute Treatment Summary: Overall during the hospital stay patient remained stable Patient was initially admitted to the hospital for acute respiratory distress most likely secondary to large left-sided pleural effusion. Patient was recently discharged from [facility] for similar complaints and was asked to continue with home oxygen with hospice company. Patient however became increasingly short of breath and thus decided to come to the ER. Patient has a left malignant pleural effusion that required a Pleurx catheter after admission. Patient however is currently on funded and it is difficult for patient to get a outpatient followup with a Pleurx catheter. Thus the decision was made to continue patient on thoracentesis and then Dc home with hospice care. Patient received thoracentesis with total of a L drainage. Fluid was sent for cytology and then patient had marked improvement in his symptoms. He med hospice was contacted and patient was removed and hospice care and then discharged home under stable condition. - Disposition Disposition: HOSPICE-HOME Condition: GOOD Diet: Regular Activity: Ad juan josé
== END 2018-01-23 17:59 | disposition hospice, home (50) | DRG 181 ==
LOC: ER 03:01 → ERHOLD 06:44 → 2ND 08:29
PROVIDERS: ADMIT Hospitalist; ATTEND Family Medicine
PROC: 0W9B3ZZ Drainage of Left Pleural Cavity, Percutaneous Approach (ICD-10-PCS; principal; 2018-01-23)
DX: C34.92 Malignant neoplasm of unspecified part of left bronchus or lung (principal); J91.0 Malignant pleural effusion; C78.7 Secondary malignant neoplasm of liver and intrahepatic bile duct; F17.210 Nicotine dependence, cigarettes, uncomplicated; Z66 Do not resuscitate; Z51.5 Encounter for palliative care; R06.03 Acute respiratory distress
CPT/HCPCS: 32555; 36415; 71045; 71250; 80048; 80053; 80076; 81003; 81015; 83690; 83735; 83880; 84484; 85025; 85610; 87040; 87070; 89050; 93005; 94640; 96365; 96367; 96375; 99285; J0456; J0696; J3010; J3430; J7030